=== PATIENT | female | born 1965 | race Caucasian/White ===

== ENCOUNTER → 2016-05-10 | Outpatient (CLI) | payer BC ==
[~2016-05-10] MED LIST: ANT PO; BUPR200T2 PO; CHOL1CAP51; CLON1TAB3 PO; DSP25 PO; METH-848 PO; PRED10TA PO; TPRSR/50 PO; TRAM-10 PO; TRIA75TA PO
[2016-05-10 10:05] LABS: HEMATOCRIT 46.5 % (37-47); MEAN CELL VOLUME 88.7 fL (80-100); MEAN CORPUSCULAR HEMOGLOBIN 29.4 pg (25-34); MEAN CORPUSCULAR HGB CONC 33.1 g/dl (32-36); MEAN PLATELET VOLUME 12.9 fL (7.4-10.4); PLATELET COUNT 197 K/uL (130-400); RED BLOOD COUNT 5.24 M/uL (4.2-5.4); WHITE BLOOD COUNT 7.63 K/uL (4.8-10.8)
[2016-05-10 10:34] LABS: BLOOD UREA NITROGEN 23 mg/dl (7-18); BUN/CREATININE RATIO 19.3 (10-20); CALCIUM 9.8 mg/dl (8.5-10.1); CARBON DIOXIDE 30 mmol/L (21-32); CHLORIDE 106 mmol/L (98-107); GLUCOSE 81 mg/dl (70-99); POTASSIUM 3.7 mmol/L (3.5-5.1); SODIUM 145 mmol/L (136-145)
[2016-05-10 10:38] LABS: ESTIMATED AVERAGE GLUCOSE 105 mg/dl; HA1C FLAG Normal (Normal)
== END | disposition home or self-care (01) ==
LOC: C.LAB1850 09:25
PROVIDERS: ATTEND Nurse Practitioner
DX: E05.90 Thyrotoxicosis, unspecified without thyrotoxic crisis or storm (principal); R73.01 Impaired fasting glucose; I10 Essential (primary) hypertension; Z98.84 Bariatric surgery status

== ENCOUNTER → 2016-06-25 | Outpatient (CLI) | payer BC ==
[2016-06-25 12:43] LABS: CHOLESTEROL/HDL RATIO 3.1; FERRITIN 56.6 ng/ml (8.0-388.0)
[2016-06-25 12:48] LABS: THYROID STIMULATING HORMONE 0.243 uIu/ml (0.300-4.500)
--- NOTE | 2016-07-01 12:15 | CODING QUERY MEDICAL NECESSITY ---
SUPPORTING DIAGNOSIS NEEDED A supporting diagnosis is required for the test/procedure performed on this patient in order for us to be reimbursed by the patient's insurance. Please provide a supporting diagnosis for the following test/procedure listed below next to the test name along with your signature. *If there is no additional diagnosis for this patient that would support the following test/procedure please document that below next to the test/procedure. Test(s)/Procedure(s) that require a supporting diagnosis: DOS 06/25 * Vitamin D DIAGNOSIS: * Folic Acid DIAGNOSIS: * Iron DIAGNOSIS: Provider Signature: Date: Thank you Teresa Mendoza Health Information Management Once completed, please kindly fax back to [phone] For questions please call [phone]
== END | disposition home or self-care (01) ==
LOC: C.LAB1850 10:37
PROVIDERS: ATTEND Internal Medicine Gastroenterology
DX: Z90.3 Acquired absence of stomach [part of] (principal); E05.90 Thyrotoxicosis, unspecified without thyrotoxic crisis or storm

== ENCOUNTER → 2016-08-12 | Outpatient (CLI) | payer BC ==
[2016-08-12 14:38] LABS: THYROID STIMULATING HORMONE 1.07 uIu/ml (0.300-4.500)
== END | disposition home or self-care (01) ==
LOC: C.LAB1850 11:37
PROVIDERS: ATTEND Physician Assistant
DX: E05.90 Thyrotoxicosis, unspecified without thyrotoxic crisis or storm (principal)

== ENCOUNTER → 2016-09-06 | Outpatient (CLI) | payer BC ==
--- NOTE | 2016-09-06 10:12 | DIAGNOSTIC IMAGING REPORT ---
CT OF THE CHEST WITHOUT IV CONTRAST CLINICAL HISTORY: Sarcoidosis. Pulmonary nodules. COMPARISON STUDY: Chest CT March 08, 2016. CT DOSE: 349.68 mGycm TECHNIQUE: Axial images of the chest were obtained without IV contrast. Images were reviewed in the axial, sagittal, and coronal planes. IV contrast was not administered for this examination. FINDINGS: Mild mediastinal and bilateral hilar lymphadenopathy has improved since exam of March 08, 2016. An index right paratracheal lymph node shown on image 92 of 307 measures 1.8 x 1.1 cm. It previously measured 2.4 x 1.3 cm. An index subcarinal lymph node shown on image 144 measures 1.1 cm in short axis diameter. It previously measured 1.4 cm. The size of the heart is at the upper limits of normal. There is no pericardial effusion. Central airways are patent. A right lobe thyroid nodule is again noted. Numerous pulmonary nodules, many of which are in a tree-in-bud distribution, are similar to exam of March 08, 2016. The appearance of the lungs is similar to prior exam. Bony thorax is unremarkable. Post surgical findings involving the stomach are noted. There are several small left renal calculi. There has been development of apparent bilateral breast skin thickening adjacent to the nipples. IMPRESSION: 1. Mild improvement in mediastinal and hilar lymphadenopathy since exam of March 08, 2016. 2. No significant change in scattered pulmonary nodules since chest CT of March 08, 2016. Many of these are in a tree-in-bud distribution. Findings are likely related to sarcoidosis. 3. Interval development of apparent bilateral periareolar skin thickening. This is suboptimally assessed by CT and is nonspecific although could be due to interval weight loss. This could be correlated with physical exam and mammography. Electronically signed by: Luis Enrique Mark M.D. 09/06/2016 10:11 AM Dictated Date/Time: 09/06/2016 9:55 AM
== END | disposition home or self-care (01) ==
LOC: C.CTS 09:29
PROVIDERS: ATTEND Internal Medicine Pulmonary Disease
DX: D86.9 Sarcoidosis, unspecified (principal); E66.9 Obesity, unspecified; R93.8 Abnormal findings on diagnostic imaging of other specified body structures

== ENCOUNTER → 2016-09-10 | Outpatient (CLI) | payer BC ==
[2016-09-10 16:16] LABS: THYROID STIMULATING HORMONE 1.88 uIu/ml (0.300-4.500)
== END | disposition home or self-care (01) ==
LOC: C.LAB1850 11:14
PROVIDERS: ATTEND Physician Assistant
DX: E05.90 Thyrotoxicosis, unspecified without thyrotoxic crisis or storm (principal)

== ENCOUNTER → 2016-09-24 | Outpatient (CLI) | payer BC | END | disposition home or self-care (01) | LOC: C.LAB1850 09:38 | PROVIDERS: ATTEND Internal Medicine Pulmonary Disease | DX: D86.9 Sarcoidosis, unspecified (principal) ==

== ENCOUNTER → 2016-10-15 | Outpatient (CLI) | payer BC ==
[2016-10-15 14:06] LABS: THYROID STIMULATING HORMONE 1.33 uIu/ml (0.300-4.500)
== END | disposition home or self-care (01) ==
LOC: C.LAB1850 12:40
PROVIDERS: ATTEND Internal Medicine Endocrinology, Diabetes & Metabolism
DX: E05.90 Thyrotoxicosis, unspecified without thyrotoxic crisis or storm (principal)

== ENCOUNTER → 2016-10-17 | Outpatient (CLI) | payer BC ==
[2016-10-17 12:35] LABS: BLOOD UREA NITROGEN 27 mg/dl (7-18); BUN/CREATININE RATIO 28.2 (10-20); CARBON DIOXIDE 29 mmol/L (21-32); CHLORIDE 109 mmol/L (98-107); CREATININE 0.95 mg/dl (0.60-1.20); GLUCOSE 86 mg/dl (70-99); POTASSIUM 3.6 mmol/L (3.5-5.1); SODIUM 145 mmol/L (136-145)
[2016-10-17 12:36] LABS: CALCIUM 9.2 mg/dl (8.5-10.1)
== END | disposition home or self-care (01) ==
LOC: C.LABPVFM 10:37
PROVIDERS: ATTEND Nurse Practitioner
DX: I10 Essential (primary) hypertension (principal)

== ENCOUNTER → 2016-12-10 | Outpatient (CLI) | payer BC ==
[2016-12-10 15:42] LABS: HEMATOCRIT 45.5 % (37-47); MEAN CORPUSCULAR HEMOGLOBIN 31.5 pg (25-34); MEAN CORPUSCULAR HGB CONC 33.8 g/dl (32-36); MEAN PLATELET VOLUME 12.1 fL (7.4-10.4); PLATELET COUNT 196 K/uL (130-400); RED BLOOD COUNT 4.89 M/uL (4.2-5.4); WHITE BLOOD COUNT 6.17 K/uL (4.8-10.8)
[2016-12-10 16:09] LABS: ALT/SGPT 50 U/L (12-78); AST/SGOT 25 U/L (15-37); BLOOD UREA NITROGEN 30 mg/dl (7-18); BUN/CREATININE RATIO 31.4 (10-20); CALCIUM 9.3 mg/dl (8.5-10.1); CARBON DIOXIDE 31 mmol/L (21-32); CHLORIDE 106 mmol/L (98-107); CREATININE 0.94 mg/dl (0.60-1.20); GLUCOSE 85 mg/dl (70-99); SODIUM 143 mmol/L (136-145)
[2016-12-10 16:11] LABS: ALB/GLOB RATIO 1.1 (0.9-2); ALKALINE PHOSPHATASE 119 U/L (45-117); FERRITIN 43.3 ng/ml (8.0-388.0); TOTAL IRON BINDING CAPACITY 332 mcg/dl (250-450)
[2016-12-11 08:01] LABS: ESTIMATED AVERAGE GLUCOSE 103 mg/dl; HA1C FLAG Normal (Normal)
--- NOTE | 2016-12-17 06:32 | CODING QUERY MEDICAL NECESSITY ---
CQSUPPORTING DIAGNOSIS NEEDED A supporting diagnosis is required for the test/procedure performed on this patient in order for us to be reimbursed by the patient's insurance. Please provide a supporting diagnosis for the following test/procedure listed below next to the test name along with your signature. *If there is no additional diagnosis for this patient that would support the following test/procedure please document that below next to the test/procedure. Test(s)/Procedure(s) that require a supporting diagnosis: DOS 12/10/16 BLOOD COUNT TEST CLYCATED HEMOGLOBIN TEST VITAMIN D TEST FOLIC ACID TEST TEST ORDERED BY PHUC DRAPER Provider Signature: Date: Thank you Consuelo Dangelo Health Information Management Once completed, please kindly fax back to [phone] For questions please call [phone]
== END | disposition home or self-care (01) ==
LOC: C.LAB1850 14:36
PROVIDERS: ATTEND Physician Assistant
DX: Z90.3 Acquired absence of stomach [part of] (principal)

== ENCOUNTER → 2017-01-03 | Outpatient (CLI) | payer BC ==
[2017-01-03 13:22] LABS: THYROID STIMULATING HORMONE 2.39 uIu/ml (0.300-4.500)
== END | disposition home or self-care (01) ==
LOC: C.LABPVFM 09:50
PROVIDERS: ATTEND Nurse Practitioner
DX: E05.90 Thyrotoxicosis, unspecified without thyrotoxic crisis or storm (principal)

== ENCOUNTER → 2017-04-07 | Outpatient (CLI) | payer BC ==
[2017-04-07 14:14] LABS: THYROID STIMULATING HORMONE 0.548 uIu/ml (0.300-4.500)
== END | disposition home or self-care (01) ==
LOC: C.LAB1850 11:26
PROVIDERS: ATTEND Internal Medicine Endocrinology, Diabetes & Metabolism
DX: E05.90 Thyrotoxicosis, unspecified without thyrotoxic crisis or storm (principal)

== ENCOUNTER → 2017-04-09 | Outpatient (CLI) | payer BC ==
--- NOTE | 2017-04-09 15:16 | MAMMOGRAPHY REPORT ---
BILATERAL DIGITAL SCREENING MAMMOGRAM TOMOSYNTHESIS WITH CAD: 04/09/2017 CLINICAL HISTORY: Routine screening. Patient has no complaints. TECHNIQUE: Breast tomosynthesis in addition to standard 2D mammography was performed. Current study was also evaluated with a Computer Aided Detection (CAD) system. COMPARISON: Comparison is made to exams dated: 06/27/2015 mammogram, 04/15/2014 mammogram, 12/02/2012 mammogram, 12/02/2011 mammogram, 11/29/2010 mammogram, and 11/21/2009 mammogram - [facility]. BREAST COMPOSITION: There are scattered areas of fibroglandular density in both breasts. FINDINGS: No suspicious mass, architectural distortion or cluster of microcalcifications is seen. IMPRESSION: ACR BI-RADS CATEGORY 1: NEGATIVE There is no mammographic evidence of malignancy. A 1 year screening mammogram is recommended. The pa tient will receive written notification of the results. Approximately 10% of breast cancers are not detected with mammography. A negative mammographic report should not delay biopsy if a clinically suggestive mass is present. Ernestina salinas/cali:04/09/2017 13:39:04 Scale Agent: Sofya Palacios RT(R)(M), [facility] letter sent: Normal 1/2 BI-RADS Code: ACR BI-RADS Category 1: Negative
== END | disposition home or self-care (01) ==
LOC: C.MAMM 13:12
PROVIDERS: ATTEND Nurse Practitioner
DX: Z12.31 Encounter for screening mammogram for malignant neoplasm of breast (principal)

== ENCOUNTER → 2017-07-07 | Outpatient (CLI) | payer OTHER | END | disposition home or self-care (01) | LOC: C.LAB1850 12:15 | PROVIDERS: ATTEND Physician Assistant | DX: E05.90 Thyrotoxicosis, unspecified without thyrotoxic crisis or storm (principal) ==

== ENCOUNTER → 2017-09-17 | Outpatient (CLI) | payer OTHER ==
[~2017-09-17] MED LIST changes: +OPTIRAY 320 IV PRN
--- NOTE | 2017-09-17 09:56 | DIAGNOSTIC IMAGING REPORT ---
CT (CHEST) THORAX WITH CLINICAL HISTORY: 52 years-old Female presenting with SARCOIDOSIS, PT PREMEDICATED. TECHNIQUE: Multidetector CT imaging of the chest was performed after the administration of intravenous contrast. IV contrast: 92 mL of Optiray 320. A dose lowering technique was used consistent with the principles of ALARA (as low as reasonably achievable). COMPARISON: 09/06/2016. CT DOSE (mGy.cm): The estimated cumulative dose is 277.10 mGy.cm. FINDINGS: Instant Print Operator topogram: Unremarkable. On soft tissue windows, enlargement of the right thyroid lobe due to the presence of a heterogeneously enhancing 27 mm nodule. This is poorly delineated on the prior exam. Persistent prominent skin thickening in the periareolar regions possibly due to large areolae. The appearance is unchanged from prior. Interval decreased size of mediastinal and hilar lymphadenopathy. Hilar lymphadenopathy is better appreciated on the current exam with intravenous contrast. No axillary or supraclavicular lymphadenopathy. Normal aorta. Normal heart size. No pericardial or pleural effusion. Postsurgical changes of gastric sleeve procedure partially visualized. Moderate stool burden. Mild wall thickening of the lower esophagus. On lung windows, redemonstration of tree-in-bud opacities with an upper lobe predominance. Multiple solid pulmonary nodules again noted bilaterally primarily in the upper lobes though noted in all 5 lobes. Some demonstrate internal calcification. These are not significantly changed in size or appearance. No significant bronchial wall thickening. Central airways patent. On bone windows, degenerative changes of the spine. IMPRESSION: 1. Slight interval decreased size of mediastinal lymphadenopathy. Persistent hilar lymphadenopathy. These findings relate to sarcoidosis. 2. No significant change in tree-in-bud opacities and multiple solid pulmonary nodules, which also relate to sarcoidosis. 3. 27 mm right thyroid lobe nodule, which is heterogeneously enhancing. If dedicated thyroid ultrasound has not previously been performed, this could be considered on an outpatient basis. Electronically signed by: Kevin Joseph M.D. 09/17/2017 9:54 AM Dictated Date/Time: 09/17/2017 9:44 AM
== END | disposition home or self-care (01) ==
LOC: C.CTS 09-02 10:14
PROVIDERS: ATTEND Internal Medicine Pulmonary Disease
DX: D86.9 Sarcoidosis, unspecified (principal)

== ENCOUNTER 2018-08-24 04:47 | Inpatient (IN) ==
--- NOTE | 2018-08-18 12:56 | Anesthesiology Consultation ---
Date of Service August 18, 2018 Assessment & Plan (1) Encounter for pre-operative examination: Chart Review Chart Review: Acceptable Risk for Surgery and Patient NOT seen in Pre Admission Testing History Surgery Operation Date: 08/24/18 07:00 Proposed Procedures p Laparoscopic Cholecystectomy - Holden Villa MD, FACS Height/Weight Height: 5 ft 4 in Weight: 70.307 kg Allergies Allergy/AdvReac Type Severity Reaction Status Date / Time Iodinated Contrast- Oral and Allergy Unknown hives Verified 08/12/18 12:51 IV Dye latex Allergy Redness of Verified 08/12/18 12:51 Skin citalopram AdvReac Unknown headache Verified 08/12/18 12:51 Penicillins AdvReac Unknown mouth sores Unverified 08/12/18 12:51 Medications Home Medications Medication Instructions Recorded Confirmed Last Taken [place]-3 1 cap PO QAM 08/12/18 08/12/18 Unknown Vitamin D3 1 cap PO QAM 08/12/18 08/12/18 Unknown bupropion HCl [Wellbutrin SR] 150 mg PO TID 08/12/18 08/12/18 Unknown buspirone 30 mg PO BID 08/12/18 08/12/18 Unknown calcium carbonate [Calcium 600] 1,200 mg PO QAM 08/12/18 08/12/18 Unknown clonazepam [Klonopin] 1 mg PO TID 08/12/18 08/12/18 Unknown cyanocobalamin (vitamin B-12) 1,000 mcg PO QAM 08/12/18 08/12/18 Unknown [Vitamin B-12] hydroxyzine HCl 50 mg PO HS 08/12/18 08/12/18 Unknown melatonin 5 mg PO HS 08/12/18 08/12/18 Unknown methimazole 1.5 tab PO QAM 08/12/18 08/12/18 Unknown multivitamin 1 tab PO QAM 08/12/18 08/12/18 Unknown omeprazole magnesium [Prilosec OTC] 20 mg PO QAM 08/12/18 08/12/18 Unknown Past Medical History Medical History Anxiety Chronic back pain Deep vein thrombosis LLE 4+ YEARS AGO S/P ANTICOAGULATION [place] Depression GERD (gastroesophageal reflux disease) Graves disease ON METHIMAZOLE History of endometriosis History of hypertension Kidney stone Sarcoidosis FOLLOWS WITH PULMONARY Past Surgical History Surgical History History of arthroscopy of knee LEFT History of colonoscopy History of elbow surgery LEFT History of esophagogastroduodenoscopy (EGD) History of hysterectomy with unilateral oophorectomy W/APPENDECTOMY History of sleeve gastrectomy History of tubal ligation Social History Smoking Status: Never smoker Do You Dip or Chew Tobacco: No Hx Alcohol Use: No Hx Substance Use: No substance use type: does not use Testing Electrocardiogram Date: 11/10/17 NSR at 69bpm. RBBB. Stress Test Date: 05/04/15 Type: DSE DSE negative for inducible ischemia. Grade II DD. EF 60-65%. No significant valvular disease. 111% MPHR. Laboratory Results 08/05/18 WBC 5.06 H/H 15.9/47.4 PLATELETS 183 SODIUM 144 POTASSIUM 4.6 CHLORIDE 101 CO2 32 BUN 31 CREATININE 0.9 GLUCOSE 94 07/06/18 TSH 1.440 (WNL) FREE T3 0.68
[2018-08-24] MEDS ORDERED: CIPROFLOXACIN 400 MG/200 ML BAG IV SCH (06:00)
[2018-08-24] MEDS: LR 15ML/HR IV SCH ×2 (06:07→08:32)
[2018-08-24] MEDS ORDERED: BUPIVACAINE 0.5 % 5 MG/1 ML MPF 30ML VIAL ONE (06:39)
--- NOTE | 2018-08-24 06:47 | History & Physical Bridge Note ---
Date of Service August 24, 2018 History & Physical Bridge Note I have examined the patient, reviewed the History & Physical and in the interval since the performance of the History & Physical I have noted the following changes of clinical significance: no changes noted
[2018-08-24] MEDS ORDERED: ATROPINE SULFATE 0.1 MG/ML 10ML SYR IV PRN (06:55)
[2018-08-24] MEDS ORDERED: ePHEDrine sulfate 50 MG/ML AMP IV PRN (06:55)
[2018-08-24] MEDS ORDERED: HYDROmorphone INJ 1 MG/ML SYRINGE IV PRN (06:55)
[2018-08-24] MEDS ORDERED: DEXAMETHASONE SOD INJ 4 MG/ML VIAL ONE (06:57)
[2018-08-24] MEDS ORDERED: GLYCOPYRROLATE 0.2 MG/ML VIAL ONE ×2 (06:57→07:37)
[2018-08-24] MEDS ORDERED: ONDANSETRON INJ 2 MG/ML 2 ML VIAL ONE (06:57)
[2018-08-24] MEDS ORDERED: NEOSTIGMINE METHYLSULFATE 5 MG/5 ML SYR ONE (06:57)
[2018-08-24] MEDS ORDERED: MIDAZOLAM HCL 1 MG/ML 2ML VIAL ONE (06:57)
[2018-08-24] MEDS ORDERED: LIDOCAINE HCL 2% 2 ML VIAL/AMP(20MG/ML) INFIL ONE (06:57)
[2018-08-24] MEDS ORDERED: PROPOFOL IV EMULSION 10 MG/ML 20 ML VIAL IV ONE (06:57)
[2018-08-24] MEDS ORDERED: fentaNYL citrate 100 MCG/2 ML VIAL ONE (06:57)
[2018-08-24] MEDS ORDERED: LARYING-O-JET KIT (LTA) ONE (07:28)
[2018-08-24] MEDS ORDERED: ROCURONIUM BROMIDE 10 MG/ML 5 ML VIAL ONE (07:28)
[2018-08-24] MEDS ORDERED: ePHEDrine sulfate 50 MG/ML SYR ONE (07:28)
--- NOTE | 2018-08-24 07:43 | Operative Report ---
Post Operative Report Pre & Post Diagnosis Operation Date: 08/24/18 07:00 Pre-Op Diagnosis: Gallstones, Biliary Colic Post-Op Diagnosis: Gallstones, Biliary Colic same Procedure Operation Date: 08/24/18 07:00 Actual Procedures p Laparoscopic Cholecystectomy(Not Applicable) - Holden Villa MD, FACS Surgeon Holden Villa MD, FACS Truck Assembler Jena Shields Estimated Blood Loss 10 Findings Consistent with Post-Op Diagnosis Specimens gallbladder Description of Procedure see dictation I attest to the content of the Intraoperative Record and any orders documented therein. Any exceptions are noted below.
[2018-08-24] MEDS ORDERED: ACETAMINOPHEN 1,000 MG/100 ML VIAL IV ONE (07:44)
--- NOTE | 2018-08-24 07:58 | Operative Report ---
DATE OF OPERATION: 08/24/2018 NAME OF OPERATION: Laparoscopic cholecystectomy. PREOPERATIVE DIAGNOSIS: Biliary colic. POSTOPERATIVE DIAGNOSIS: Biliary colic. STAFF SURGEON: Holden Villa PA-C. SR. MEDIA MANAGER: Anand Shields PA-C ANESTHESIA: General. DESCRIPTION OF PROCEDURE: The patient was brought in the operating room and placed on the operating table in supine position. Pneumatic stockings, orogastric tube were placed. Her abdomen was prepped and draped in usual fashion after appropriate anesthetic. My assistant professor of german helped with prepping, draping, removal of the gallbladder and closure of the wounds. 0.5% plain Marcaine was used to anesthetize all incisions. Incision was made above the umbilicus, carrying dissection down to the fascia, placing a Veress needle producing pneumoperitoneum. An 11 mm port placed at this level, and under visualization, three 5 mm ports were placed, 1 cephalad and 2 laterally. Gallbladder was grasped and retracted. It was aspirated of bile. The patient did have at least 1 large gallstone. Dissection was carried out at the nixon hepatis, identifying the cystic duct and cystic artery. These were clipped and transected and the gallbladder dissected away from the liver bed in the usual fashion. After appropriate hemostasis and irrigation, the gallbladder was placed into an Endobag and then removed through the umbilical site. The umbilical fascia closed using interrupted 0 Vicryl suture. Skin reapproximated using subcuticular 4-0 Monocryl and Dermabond. The patient was transferred to the recovery room in stable condition. I attest to the content of the Intraoperative Record and any orders documented therein. Any exception s are noted below.
[2018-08-24] MEDS ORDERED: ONDANSETRON INJ 2 MG/ML 2 ML VIAL IV STA (08:31)
--- NOTE | 2018-08-24 08:45 | Anesthesiology Progress Note ---
Date of Service August 24, 2018 Anesthesia Post Procedure Vital Signs Vital Signs: Temp Pulse Pulse Resp BP BP Pulse Ox 08/24/18 08:35 56 L 17 136/82 99 08/24/18 08:25 60 14 139/84 99 08/24/18 08:15 66 12 140/84 100 08/24/18 08:05 75 14 147/86 H 100 08/24/18 07:57 36.0 C L 96 H 16 139/94 99 08/24/18 05:42 36.8 C 69 18 127/84 97 Pain Intensity Abdomen: Pain Intensity: 2 Notes Mental Status: alert / awake / arousable Patient Amnestic to Procedure: Yes Nausea / Vomiting: adequately controlled Pain: adequately controlled Airway Patency, RR, SpO2: stable & adequate BP & HR: stable & adequate Hydration State: stable & adequate Anesthetic Complications: no major complications apparent and Pt Satisfied with anesthetic care
[2018-08-24] MEDS ORDERED: IBUPROFEN 600 MG TAB PO PRN (09:41)
[2018-08-24] MEDS ORDERED: MoRPHine SULFATE 4 MG/ML 1 ML CARP\\VIAL IV PRN (09:41)
[2018-08-24] MEDS ORDERED: HYDROCODONE/ACETAMOPHEN 5/325MG TAB PO PRN (09:41)
[2018-08-24] MEDS ORDERED: LACTATED RINGER'S 1,000 ML IV SCH (09:41)
[2018-08-24] MEDS ORDERED: PROMETHAZINE HCL 12.5 MG in SODIUM CHLORIDE 0.9% 50 ML IV PRN (09:41)
[2018-08-24] MEDS ORDERED: PROMETHAZINE HCL 25 MG in SODIUM CHLORIDE 0.9% 50 ML IV PRN (09:41)
[2018-08-24] MEDS: clonazePAM 1 MG TAB PO SCH ×3 (10:20→20:53)
[2018-08-24] MEDS: HYDROCODONE/ACETAMOPHEN 5/325MG TAB PO PRN ×2 (10:20→16:04)
[2018-08-24] MEDS: PANTOprazole 40 MG TAB PO SCH (11:01)
[2018-08-24] MEDS: DOCUSATE SODIUM/SENNA 50/8.6MG TAB PO SCH ×2 (11:01→20:53)
--- NOTE | 2018-08-24 11:01 | Consultation ---
Date of Consultation August 24, 2018 Assessment & Plan (1) S/P laparoscopic cholecystectomy: Patient s/p laparoscopic cholecystectomy performed today by Dr. Villa. Procedure well tolerated, no complications identified. Patient is doing well, does have considerable pain, 8/10. Just received Hydrocodone. -Control of pain and nausea per primary team. Patient has PRN Morphine IV if pain is not adequately controlled by Hydromorphone -Bowel regimen per primary team -Encourage activity Present on Admission?: Yes (2) Sarcoidosis: Patient with history of pulmonary Sarcoidosis. Presently well controlled. She follows with Pulmonology -Outpatient followup as recommended by Pulmonology -Continue to monitor Present on Admission?: Yes (3) Graves disease: Stable, chronic -Continue Methimazole Present on Admission?: Yes (4) Anxiety: Stable. Well controlled on home medication regimen -Continue Bupropion 150mg po TID -Continue Buspirone 30mg po BID -Continue Clonazepam 1mg po TID -Continue Hydroxyzine 50mg po qHS for sleep Present on Admission?: Yes (5) History of sleeve gastrectomy: Chronic. Stable -Protonix 40mg po daily -Prilosec on discharge -Resume home Vitamins and supplements on discharge Present on Admission?: Yes (6) History of DVT (deep vein thrombosis): Patient completed adequate course of anticoagulation. Presently with SCDs in place -Encourage ambulation -Continue SCDs F/E/N - will check CBC and BMP x 1 tomorrow AM Thank you for this consult. Please do not hesitate to call with additional questions or concerns. Present on Admission?: Yes History of Present Illness Reason for Consultation: post-operative medical management Attending Physician: Holden Villa MD, FACS History of Present Illness Mrs. Suarez is a pleasant 53yo C female with history of pulmonary sarcoidosis, Grave's disease, prior DVT, Anxiety/Depression. She had a laparoscopic cholecystectomy performed by Dr. Villa today for biliary colic and gallstones. Surgery was well tolerated, no complications identified. Patient presently complaining of pain, 8/10 as well as some gas. She has ambulated to the bathroom and urinated without difficulty. No BM yet. Has not yet eaten. No additional complaints at this time. Allergies Allergy/AdvReac Type Severity Reaction Status Date / Time Iodinated Contrast- Oral and Allergy Unknown hives Verified 08/24/18 05:36 IV Dye latex Allergy Redness of Verified 08/24/18 07:32 Skin citalopram AdvReac Unknown headache Verified 08/24/18 07:32 Penicillins AdvReac Unknown mouth sores Verified 08/24/18 07:32 Home Medications Home Medications Medication Instructions Recorded Confirmed Type [place]-3 1 cap PO QAM 08/12/18 08/12/18 History Vitamin D3 1 cap PO QAM 08/12/18 08/24/18 History bupropion HCl [Wellbutrin SR] 150 mg PO TID 08/12/18 08/24/18 History buspirone 30 mg PO BID 08/12/18 08/24/18 History calcium carbonate [Calcium 600] 1,200 mg PO QAM 08/12/18 08/24/18 History clonazepam [Klonopin] 1 mg PO TID 08/12/18 08/24/18 History cyanocobalamin (vitamin B-12) 1,000 mcg PO QAM 08/12/18 08/24/18 History [Vitamin B-12] hydroxyzine HCl 50 mg PO HS 08/12/18 08/24/18 History melatonin 5 mg PO HS 08/12/18 08/24/18 History methimazole 1.5 tab PO QAM 08/12/18 08/24/18 History multivitamin 1 tab PO QAM 08/12/18 08/24/18 History omeprazole magnesium [Prilosec OTC] 20 mg PO QAM 08/12/18 08/24/18 History Patient History Family History Other Diabetes Hypertension Social History Preferred Language: Kinyarwanda Communication Ability: Effective Insecticide Supervisor Required: No Beliefs That Will Affect Care: Nondenominational Nondenominational Beliefs: ISLAM Current Living Situation: Spouse Other Information That Helps Us Care for You: No Feels Safe at Home: Yes Safety Concerns: Feels Safe At This Time Smoking Status: Never smoker Do You Dip or Chew Tobacco: No Second Hand Exposure: Yes ( A CHILD) Hx Alcohol Use: No Hx Substance Use: No Review of Systems Review of Systems: All systems reviewed & are unremarkable except as noted in HPI & below Physical Exam Physical Exam: General: patient resting comfortably, NAD, non-toxic in appearance, AA&O x 4 Skin: warm, dry, no rashes or lesions. HEENT: NC/AT, PERRL, EOMI, anicteric sclera, conjunctiva without injection, external ear normal to inspection and nontender, nares patent, moist mucus membranes, dentition intact, no oropharyngeal lesions, neck supple, trachea midline, no LAD, no thyromegaly, no JVD Heart: +S1/S2, regular, bradycardic at 59bpm, no m/r/g Lungs: equal air entry bilaterally, no rales/rhonchi/wheezes Abd: surgical sites well approximated, no bleeding/drainage, +BS, soft, ND, no masses/organomegaly/ascites Ext: warm, 2+ pulses in UE/LE bilaterally, no clubbing/cyanosis or edema, SCDs in place Neuro: nonfocal, patient AA&O x 4, speech intact, no facial droop, moving all extremities on command with equal strength 5/5 Results & Data Vital Signs (Past 12 Hours) Vital Signs Temp Pulse Pulse Resp BP BP Pulse Ox 08/24/18 10:01 59 L 16 130/81 96 08/24/18 09:47 76 15 128/84 96 08/24/18 09:05 36.8 C 68 16 131/86 96 08/24/18 08:45 36.6 C 54 L 14 126/83 99 08/24/18 08:35 56 L 17 136/82 99 08/24/18 08:25 60 14 139/84 99 08/24/18 08:15 66 12 140/84 100 08/24/18 08:05 75 14 147/86 H 100 08/24/18 07:57 36.0 C L 96 H 16 139/94 99 08/24/18 05:42 36.8 C 69 18 127/84 97
[2018-08-24] MEDS: BuPROPion SR 150 MG TABCR PO SCH ×3 (11:02→20:53)
[2018-08-24] MEDS: BusPIRone 15 MG TAB PO SCH ×2 (11:02→20:53)
[2018-08-24] MEDS: MoRPHine SULFATE 2 MG/ML CARP IV PRN ×2 (11:05→22:34)
[2018-08-24] MEDS: ONDANSETRON INJ 2 MG/ML 2 ML VIAL IV PRN (18:56)
[2018-08-25] MEDS: ONDANSETRON INJ 2 MG/ML 2 ML VIAL IV PRN ×4 (00:14→23:38)
[2018-08-25] MEDS: HYDROCODONE/ACETAMOPHEN 5/325MG TAB PO PRN ×2 (05:56→20:04)
--- NOTE | 2018-08-25 05:59 | Progress Note ---
Date of Service August 25, 2018 Assessment & Plan (1) S/P laparoscopic cholecystectomy: will monitor today- admit pt- nausea/ dizziness likely from meds/ anesthesia- check labs cont IV meds and antiemetics as needed Subjective pt sitting on edge of bed- awake, alert- no distress min pain had some nausea, dizziness last pm- no emesis Physical Exam Physical Exam: abd soft, incisions intact vitals stable Results & Data Vital Signs (Past 12 Hours) Vital Signs Temp Pulse Pulse Resp BP Pulse Ox 08/25/18 03:22 37.1 C 68 14 106/64 92 08/24/18 22:55 36.7 C 64 14 111/70 94 08/24/18 18:46 36.4 C L 70 18 122/79 96
[2018-08-25 07:47] LABS: Basophils # (auto) 0.02 K/uL (0-0.2); Basophils % (auto) 0.3 %; Eosinophils # (auto) 0.11 K/uL (0-0.5); Eosinophils % (auto) 1.6 %; Hematocrit (blood only) 40.9 % (37-47); Hemoglobin 13.9 g/dL (12.0-16.0); Immature Granulocytes # (auto) 0.01 K/uL (0.00-0.02); Immature Granulocytes % (auto) 0.1 %; Lymphocytes # (auto) 1.44 K/uL (1.2-3.4); Lymphocytes % (auto) 21.2 %; Mean Corpuscular Volume 93.4 fL (80-100); Mean Platelet Volume 11.4 fL (7.4-10.4); Monocytes # (auto) 0.81 K/uL (0.11-0.59); Monocytes % (auto) 11.9 %; Neutrophils # (auto) 4.41 K/uL (1.4-6.5); Neutrophils % (auto) 64.9 %; Platelet Count 146 K/uL (130-400); RDW Coefficient of Variation 13.2 % (11.5-14.5); RDW Standard Deviation 45.2 fL (36.4-46.3); Red Blood Count 4.38 M/uL (4.2-5.4)
[2018-08-25 08:20] LABS: BUN Creatinine Ratio 18.2 (10-20); Calcium 8.9 mg/dl (8.5-10.1); Creatinine Clr Calc Pharmacy 75.8 ml/min; Est GFR (African American) 92.7; Est GFR (Non-African American) 79.9; Potassium 4.1 mmol/L (3.5-5.1)
--- NOTE | 2018-08-25 08:24 | Anesthesiology Progress Note ---
Date of Service August 25, 2018 Anesthesia Post Procedure Vital Signs Vital Signs: Temp Pulse Pulse Pulse Resp BP Pulse Ox 08/25/18 07:44 37 C 68 14 106/67 92 08/25/18 03:22 37.1 C 68 14 106/64 92 08/24/18 22:55 36.7 C 64 14 111/70 94 08/24/18 18:46 36.4 C L 70 18 122/79 96 08/24/18 15:26 36.6 C 61 18 132/81 96 08/24/18 12:14 68 14 126/78 92 08/24/18 11:02 62 15 136/76 97 08/24/18 10:01 59 L 16 130/81 96 08/24/18 09:47 76 15 128/84 96 08/24/18 09:05 36.8 C 68 16 131/86 96 08/24/18 08:45 36.6 C 54 L 14 126/83 99 08/24/18 08:35 56 L 17 136/82 99 08/24/18 08:25 60 14 139/84 99 Pain Intensity Abdomen: Pain Intensity: 2 Notes Mental Status: alert / awake / arousable Patient Amnestic to Procedure: Yes Nausea / Vomiting: improving with treatment (Pt reports delayed nausea following afternoon nap hours after surgery) Pain: adequately controlled Airway Patency, RR, SpO2: stable & adequate BP & HR: stable & adequate Hydration State: stable & adequate Anesthetic Complications: Pt Satisfied with anesthetic care
[2018-08-25] MEDS: DOCUSATE SODIUM/SENNA 50/8.6MG TAB PO SCH ×2 (09:10→20:58)
[2018-08-25] MEDS: BuPROPion SR 150 MG TABCR PO SCH ×3 (09:10→20:58)
[2018-08-25] MEDS: BusPIRone 15 MG TAB PO SCH ×2 (09:10→20:58)
[2018-08-25] MEDS: methIMAzole 5 MG TABLET PO SCH (09:10)
[2018-08-25] MEDS: PANTOprazole 40 MG TAB PO SCH (09:10)
[2018-08-25] MEDS: clonazePAM 1 MG TAB PO SCH ×3 (09:12→20:58)
[2018-08-25] MEDS: ACETAMINOPHEN 325 MG TAB PO PRN (13:42)
--- NOTE | 2018-08-25 14:44 | Anesthesiology Progress Note ---
Date of Service August 25, 2018 Subjective I was asked to see Mrs. Shepard for the symptoms of dizziness and headaches. She is post-op day one, S/P laparoscopic cholecystectomy. There were no complications of anesthesia.She said her symptoms are better than yesterday. Tylenol is helping the headaches, and she has had a few doses of zofran for nausea. I explained to her that during an anesthetic she receives a lot of narcotics and anesthetic gasses as well other drugs and that it should get better every day until the symptoms are all resolved. I encouraged her to drink a lot of fluids. Physical Exam Vital Signs: Last Vital Signs Temp 37 C 08/25/18 07:44 Pulse 68 08/25/18 07:44 Resp 14 08/25/18 07:44 BP 119/75 08/25/18 08:55 Pulse Ox 92 08/25/18 07:44 Results & Data Medications Administered Acetaminophen (Tylenol) 650 mg PO Q4H PRN PRN Reason: Pain Stop: 09/23/18 09:40 Last Admin: 08/25/18 13:42 Dose: 650 mg Documented by: [id number] Hydrocodone Bitart/Acetaminophen (Wayne 5/325) 2 tab PO 3XDQ4 PRN PRN Reason: Pain Stop: 09/07/18 09:40 Last Admin: 08/25/18 05:56 Dose: 2 tab Documented by: [id number] Admin: 08/24/18 16:04 Dose: 2 tab Documented by: [id number] Admin: 08/24/18 10:20 Dose: 2 tab Documented by: [id number] Bupropion HCl (Wellbutrin-Sr) 150 mg PO TID YOLANDA Stop: 09/23/18 09:40 Last Admin: 08/25/18 13:42 Dose: 150 mg Documented by: [id number] Admin: 08/25/18 09:10 Dose: 150 mg Documented by: [id number] Admin: 08/24/18 20:53 Dose: 150 mg Documented by: [id number] Admin: 08/24/18 13:50 Dose: 150 mg Documented by: [id number] Admin: 08/24/18 11:02 Dose: 150 mg Documented by: [id number] Buspirone HCl (Buspar) 30 mg PO BID [facility] Stop: 09/23/18 09:40 Last Admin: 08/25/18 09:10 Dose: 30 mg Documented by: [id number] Admin: 08/24/18 20:53 Dose: 30 mg Documented by: [id number] Admin: 08/24/18 11:02 Dose: 30 mg Documented by: [id number] Clonazepam (Klonopin) 1 mg PO TID [facility] Stop: 09/23/18 09:40 Last Admin: 08/25/18 13:42 Dose: 1 mg Documented by: [id number] Admin: 08/25/18 09:12 Dose: 1 mg Documented by: [id number] Admin: 08/24/18 20:53 Dose: 1 mg Documented by: [id number] Admin: 08/24/18 13:50 Dose: 1 mg Documented by: [id number] Admin: 08/24/18 10:20 Dose: 1 mg Documented by: [id number] Hydroxyzine HCl (Vistaril) 50 mg PO HS [facility] Stop: 09/23/18 20:59 Last Admin: 08/24/18 20:53 Dose: 50 mg Documented by: [id number] Methimazole (Tapazole) 7.5 mg PO QAM [facility] Stop: 09/24/18 08:59 Last Admin: 08/25/18 09:10 Dose: 7.5 mg Documented by: [id number] Morphine Sulfate (Morphine Sulfate) 2 mg IV 4XDQ3H PRN PRN Reason: Pain Stop: 09/07/18 09:40 Last Admin: 08/24/18 22:34 Dose: 2 mg Documented by: [id number] Admin: 08/24/18 11:05 Dose: 2 mg Documented by: [id number] Ondansetron HCl (Zofran) 4 mg IV 4XDQ4H PRN PRN Reason: Nausea Stop: 09/23/18 09:40 Last Admin: 08/25/18 13:42 Dose: 4 mg Documented by: [id number] Admin: 08/25/18 00:14 Dose: 4 mg Documented by: [id number] Admin: 08/24/18 18:56 Dose: 4 mg Documented by: [id number] Pantoprazole Sodium (Protonix) 40 mg PO DAILY [facility] Stop: 09/23/18 09:59 Last Admin: 08/25/18 09:10 Dose: 40 mg Documented by: [id number] Admin: 08/24/18 11:01 Dose: 40 mg Documented by: [id number] Senna/Docusate Sodium (Senokot S) 1 tab PO BID YOLANDA Stop: 09/23/18 09:40 Last Admin: 08/25/18 09:10 Dose: 1 tab Documented by: [id number] Admin: 08/24/18 20:53 Dose: 1 tab Documented by: [id number] Admin: 08/24/18 11:01 Dose: 1 tab Documented by: [id number]
[2018-08-25] MEDS ORDERED: MECLIZINE HCL 25 MG TAB PO STA ×2 (16:22→23:59)
[2018-08-25] MEDS ORDERED: SODIUM CHLORIDE 0.9% 500 ML IV SCH (16:30)
--- NOTE | 2018-08-25 20:12 | Hospitalist Progress Note ---
Date of Service August 25, 2018 Assessment & Plan (1) Dizziness: orthostatic BPs checked and were normal. some of the symptoms sound like orthostasis but again orthostatics are negative. not true vertigo but movements clearly bring on some form of disequilibrium. medication side effects? dehydration? other? try antivert 12.5mg po x1. if not effective consider scopalamine patch. NS bolus 500cc x 1 since she appears volume depleted. treat headache. Present on Admission?: No (2) Headache: tension type headache cont tylenol prn use narcotics sparingly for this consider heat packs unfortunately cannot use NSAIDs due to h/o gastric sleeve last resort try fioricet (3) S/P laparoscopic cholecystectomy: POD #[address] Villa management per his team (4) Sarcoidosis: inactive/quiescent. follows w/ pulmonary as outpatient. (5) Graves disease: Stable, chronic Continue Methimazole (6) Anxiety: cont complex home regimen including buspar, klonipin, wellbutrin. also takes atarax at HS. (7) History of sleeve gastrectomy: noted PPI for GI proph no NSAIDs (8) History of DVT (deep vein thrombosis): noted DVT proph selection - defer to Dr. Villa our team will continue to follow Subjective pt c/o dizziness not a true vertigo but sudden movements and sitting/standing make it worse not a true lightheaded feeling either but states she feels her "balance is off" today keeps seeing "squiglies" when she looks out into the room but no visual field cuts no motor weakness also c/o right sided scalp headache; this is tender if she touches it nausea has improved today +flatus tolerating current diet mild abd pain Review of Systems Constitutional: no fever Respiratory: no cough and no dyspnea Cardiovascular: no chest pain Neurologic: no localized weakness, no paralysis and no numbness Physical Exam Constitutional: well developed and well nourished; no acute distress and not ill appearing ENMT: Mouth: + oral mucosal abnormality (mucous membranes DRY) tender to palpation right side of head Respiratory: normal respiratory effort, lungs clear to auscultation Cardiovascular: Rate/Rhythm: regular rate and regular rhythm Heart Sounds: normal S1 and normal S2; no murmur Vessels: posterior tibial pulses present and dorsalis pedis pulses present; no JVD Extremities: no edema Gastrointestinal (Abdomen): Inspection/Auscultation: + abdomen distended (mild) and normal bowel sounds Percussion/Palpation: + abdomen tender (incisions only ); no hepatosplenomegaly Neurologic: moves all extremities; no focal motor deficits finger/nose/finger maneuver w/o ataxia gait not tested Results & Data Vital Signs (Past 12 Hours) Vital Signs Temp Pulse Resp BP Pulse Ox 08/25/18 15:54 124/72 08/25/18 15:53 128/78 08/25/18 15:52 137/89 08/25/18 15:21 36.7 C 77 18 111/71 96 08/25/18 08:55 119/75 Laboratory Results Laboratory Results - last 24 hr 08/25/18 08/25/18 07:22 07:22 WBC 6.80 RBC 4.38 Hgb 13.9 Hct 40.9 MCV 93.4 MCH 31.7 MCHC 34.0 RDW Std Deviation 45.2 RDW Coeff of Winsome 13.2 Plt Count 146 MPV 11.4 H Immature Gran % (Auto) 0.1 Neut % (Auto) 64.9 Lymph % (Auto) 21.2 [place] % (Auto) 11.9 Eos % (Auto) 1.6 Baso % (Auto) 0.3 Immature Gran # (Auto) 0.01 Neut # (Auto) 4.41 Lymph # (Auto) 1.44 [place] # (Auto) 0.81 H Eos # (Auto) 0.11 Baso # (Auto) 0.02 Sodium 142 Potassium 4.1 Chloride 107 Carbon Dioxide 29 Anion Gap 6.0 BUN 15 Creatinine 0.83 Est Cr Clr Drug Dosing 75.8 Est GFR ( Amer) 92.7 Est GFR (Non-Af Amer) 79.9 BUN/Creatinine Ratio 18.2 Glucose 88 Calcium 8.9 (1) Headache Headache type: tension-type Headache chronicity pattern: acute headache Intractability: not intractable Qualified Code(s): G44.209 - Tension-type headache, unspecified, not intractable
--- NOTE | 2018-08-26 07:24 | Progress Note ---
Date of Service August 26, 2018 Assessment & Plan (1) S/P laparoscopic cholecystectomy: dizziness persists - did rec Meclazine- will discuss further w/u with med team stop all narcotics, supportive care Subjective vitals stable- no orthostasis nausea last pm- given zofran, also rec [place] still w/ occas headache- nonspecific site and some dizziness Physical Exam Physical Exam: awake, alert, normal affect abd soft, incisions ok Results & Data Vital Signs (Past 12 Hours) Vital Signs Temp Pulse Resp Pulse Ox 08/25/18 23:42 36.7 C 73 18 92
[2018-08-26] MEDS: ACETAMINOPHEN 325 MG TAB PO PRN ×2 (08:43→14:36)
[2018-08-26] MEDS: BusPIRone 15 MG TAB PO SCH ×2 (10:05→20:43)
[2018-08-26] MEDS: DOCUSATE SODIUM/SENNA 50/8.6MG TAB PO SCH ×2 (10:05→20:43)
[2018-08-26] MEDS: PANTOprazole 40 MG TAB PO SCH (10:05)
[2018-08-26] MEDS: methIMAzole 5 MG TABLET PO SCH (10:06)
[2018-08-26] MEDS: BuPROPion SR 150 MG TABCR PO SCH ×3 (10:07→20:43)
[2018-08-26] MEDS: clonazePAM 1 MG TAB PO SCH ×3 (10:09→20:43)
--- NOTE | 2018-08-26 17:41 | Hospitalist Progress Note ---
Date of Service August 26, 2018 Assessment & Plan (1) Dizziness: orthostatic BPs checked and were normal. some of the symptoms sound like orthostasis but again orthostatics are negative. not true vertigo but movements clearly bring on some form of disequilibrium. Now improving after stopping hydrocodone. Most likely was a medication side effect She also received a small bolus of normal saline yesterday and appears more hydrated. Overall much improved (2) Headache: Much improved today and was likely related to caffeine withdrawal as she normally drinks caffeinated Diet Coke on a daily basis. Resolved today after drinking Diet Coke and taking 2 Tylenol Okay to have caffeinated beverages in the hospital (3) S/P laparoscopic cholecystectomy: POD #[address] Villa management per his team (4) Sarcoidosis: inactive/quiescent. follows w/ pulmonary as outpatient. (5) Graves disease: Stable, chronic Continue Methimazole (6) Anxiety: cont complex home regimen including buspar, klonipin, wellbutrin. also takes atarax at HS. (7) History of sleeve gastrectomy: noted PPI for GI proph -Would not recommend any NSAIDs due to increased risk of peptic ulcer disease (8) History of DVT (deep vein thrombosis): noted-patient reports she had a small clot in the right lower extremity that was at the "borderline" of being in a deep vessel but was treated with 3 months of anticoagulation. Her second event was a superficial thrombophlebitis in the right antecubital fossa after a lab draw. She is not on chronic anticoagulation Would recommend Lovenox-as it has been 2 days since her laparoscopic cholecystectomy and she has no evidence/signs/symptoms of bleeding, okay to start Lovenox 40 mg SQ every 24 hours for DVT prophylaxis Disposition-hospitalist service will follow along, but most likely can be discharged home tomorrow Subjective I saw the patient later in the afternoon she was feeling much better. Reported dizziness was much improved and was more like feeling a little blurring her vision with standing up and after walking in the halls. She also reports her headache is much improved after drinking a caffeinated Diet Coke as well as taking 2 Tylenol. She denies chest pain or shortness of breath, denies nausea. She is tolerating p.o. No bowel movement yet and is requesting a laxative. She does not want to take any more opioids and really has no abdominal pain. Review of Systems Review of Systems: All systems reviewed & are unremarkable except as noted in HPI & below Physical Exam Constitutional: WD/WN, vitals as above Eyes: PERRL, conjunctivae normal, anicteric sclerae (Except right pupil slightly larger than left pupil status post eye surgery) EOM intact bilaterally; no nystagmus ENMT: external ear and nose normal, oropharynx normal Neck: trachea midline, no thyromegaly Respiratory: normal respiratory effort, lungs clear to auscultation Cardiovascular: RRR, no murmur, no edema Gastrointestinal (Abdomen): normal bowel sounds, soft, nontender, no hepatos plenomegaly (With multiple laparoscopic incisions with Dermabond in place) Musculoskeletal: Extremities: extremities normal to inspection; no cyanosis and no clubbing Skin: no rashes, warm and dry Neurologic: CN's II-XI intact bilaterally, moves all extremities and awake; no focal motor deficits Psychiatric: A+Ox3, euthymic affect Results & Data Vital Signs (Past 12 Hours) Vital Signs Temp Pulse Pulse Resp BP Pulse Ox 08/26/18 15:00 37.3 C 73 18 128/82 95 08/26/18 12:50 36.9 C 69 16 112/77 94 08/26/18 07:31 118/76 08/26/18 07:30 36.7 C 70 17 118/64 95 Laboratory Results 08/26/18 Range/Units 18:12 PT 10.4 (9.0-12.0) Seconds INR 1.0 (0.9-1.1) APTT 24.0 (21.0-31.0) Seconds PTT Ratio 0.9 (1) Headache Headache chronicity pattern: acute headache Headache type: tension-type Intractability: not intractable Qualified Code(s): G44.209 - Tension-type headache, unspecified, not intractable
[2018-08-26] MEDS: POLYETHYLENE (MIRALAX) 17 GM PACK PO SCH (18:13)
[2018-08-26 18:53] LABS: Partial Thromboplastin Ratio 0.9; Prothrombin Time 10.4 Seconds (9.0-12.0)
[2018-08-26] MEDS ORDERED: ENOXAPARIN INJ 40 MG/0.4 ML SYR SQ SCH (21:00)
[2018-08-27] MEDS: clonazePAM 1 MG TAB PO SCH (09:10)
[2018-08-27] MEDS: DOCUSATE SODIUM/SENNA 50/8.6MG TAB PO SCH (09:11)
[2018-08-27] MEDS: PANTOprazole 40 MG TAB PO SCH (09:11)
[2018-08-27] MEDS: BuPROPion SR 150 MG TABCR PO SCH (09:11)
[2018-08-27] MEDS: methIMAzole 5 MG TABLET PO SCH (09:11)
[2018-08-27] MEDS: BusPIRone 15 MG TAB PO SCH (09:12)
[2018-08-27] MEDS: POLYETHYLENE (MIRALAX) 17 GM PACK PO SCH (09:12)
--- NOTE | 2018-08-27 09:46 | Discharge Summary ---
PRINCIPAL DIAGNOSIS: Biliary colic. OTHER DIAGNOSES: Dizziness and nausea. PROCEDURES: The patient underwent laparoscopic cholecystectomy. HISTORY OF PRESENT ILLNESS: The patient is a 53-year-old female with gallstones and history of abdominal pain, felt to be biliary colic. HOSPITAL COURSE: She was brought into the hospital on 08/24/2018. She underwent elective laparoscopic cholecystectomy, which she tolerated very well. The procedure went very well. Postoperatively, she did have some nausea and then some dizziness which was examined and evaluated by the medical team. It did gradually subside and was felt to be secondary to her narcotic medication and anesthesia. She did gradually progress and was felt stable for discharge home on 08/27/2018 to be followed in the surgical clinic within 1-2 weeks.
--- OUTSIDE RECORDS SUMMARY | 2018-08-31 14:22 | External Medical Summary | Continuity of Care Document ---
:1965 Author Name Ramu Han, Provider Address Unavailable Unavailable , Care Team Providers Name Role Phone Ozzy ROSA, Abena Unavailable [email or web address] Cory Han, Keegan Unavailable [email or web address] [email or web address] Unavailable [email or web address] DEYSI Han, JANNET Jacobs Unavailable Unavailable Unavailable Unavailable Unavailable Problems Bundle-branch block (426.50) (I45.4) Tachycardia (785.0) (R00.0) Encounter for routine gynecological examination (V72.31) (Z0 1.419) Low back pain, unspecified back pain lat erality, unspecified chronicity, with sciatica presence unspecified (724.2) (M54.5) Graves disease (242.00) (E05.00) Abdominal pain of multiple sites (789.09) (R10.9) Upper respiratory infection (465.9) (J06.9) Otitis media (382.9) (H66.90) A-V Block (426.10) Benign colonic polyp (211.3) (K63.5) Anxiety (300.00) (F41.9) Mid sternal chest pain (786.51) (R07.89) Thyroid adenoma, toxic (242.10) (E05.10) Urinary symptom or sign (788.99) (R39.9) Tinea corporis (110.5) (B35.4) Hyperthyroidism (242.90) (E05.90) Encounter for immunization (V03.89) (Z23) Status post gastric bypass for obesity (V45.86) (Z98.84) Depression (311) (F32.9) Sarcoidosis (135) (D86.9) Nephrolithiasis (592.0) (N20.0) Biliary colic (574.20) (K80.50) Gallstones (574.20) (K80.20) Low back pain (724.2) (M54.5) Fungal infection (117.9) (B49) Osteoarthritis (715.90) (M19.90) Functional Status Working regular duty Allergies and Adverse Reactions CeleXA TABS (Allergy) Contrast Media Ready-Box MISC (Allergy) Reaction: Hives Penicillins (Allergy) Medications Diclofenac Sodium 1 % Transdermal Gel; A PPLY ONE GRAM OF GEL TOPICALLY 4 TIMES DAILY IF NEEDED FOR hand pain SHELLEY Preciado Start: 13-Oct-2017 Quantity: 1 100 GM Tube Refills: 5 buPROPion HCl - 75 MG Oral Tablet; Take 1 tablet twice daily Start: 26-Jan-2016 Refills: 0 hydrOXYzine HCl - 25 MG Oral Tablet; TAKE ONE TABLET BY MOUT H AT BEDTIME Start: 26-Jan-2016 Quantity: 90 Refills: 1 Acetaminophen 500 MG Oral Tablet; TAKE 1 TABLET EVERY 4 TO 6 HOURS NEEDED. Start: 26-Jan-2016 Refills: 0 Calcium 600-200 MG-UNIT Oral Tablet; Take 1 tablet daily Start: 25-Dec-2016 Refills: 0 Doxycycline Hyclate 100 MG Oral Capsule; TAKE 1 CAPSUL E EVERY 12 HOURS DAILY. SHELLEY Stuart Start: 15-Jun-2018 Quantity: 14 Refills: 0 clonazePAM 1 MG Oral Tablet; TAKE 1 TABLET BY MOUTH 4 TIMES DAILY Refills: 0 Omeprazole 20 MG Oral Capsule Delayed Release; TAKE 1 CAPSULE Daily SHELLEY Preciado Start: 03-Jun-2018 Quantity: 1 30 Capsule Bottle Refills: 5 methIMAzole 5 MG Oral Tablet; TAKE ONE & ONE-HALF TABL ETS BY MOUTH ONCE DAILY DAVID Miller Start: 29-Dec-2017 Quantity: 135 Refills: 3 Multi Vitamin Oral Tablet; Take one tablet twice daily. Start: 09-Apr-2016 Refills: 0 Ketoconazole 2 % External Cream; APPLY S PARINGLY TO AFFECTED AREA(S) TWICE DAILY SHELLEY Preciado Start: 24-Apr-2018 Quantity: 1 30 GM Tube Refills: 2 Fluticasone Propionate 50 MCG/ACT Nasal Suspension; USE ONE SPRAY(S) IN EACH NOSTRIL TWICE DAILY SHELLEY Preciado Start: 09-Mar-2018 Quantity: 1 9.9 ML Bottle Refills: 5 Fish Oil 1000 MG Oral Capsule Delayed Release; 2 CAPSULES TW ICE A DAY Start: 13-Oct-2017 Refills: 0 busPIRone HCl - 30 MG Oral Tablet; TAKE 1 TABLET TWICE DAILY . Start: 10-Nov-2017 Refills: 0 Vitamin D 1000 UNIT Oral Tablet; TAKE 1 TABLET DAILY. Start: 10-Nov-2017 Quantity: 30 Refills: 5 Melatonin 5 MG Oral Tablet; 1 at bedtime Start: 10-Nov-2017 Refills: 0 Procedures History of Colonoscopy (Fiberoptic) Stat us: Completed History of Complete Colonoscopy Status: Completed History of Total Abdominal Hysterectomy Status: Completed History of Laparoscopy With Fulguration Of Oviducts Status: Completed History of Laparoscop Fulguration Endometriotic Tissue Broad Status: Completed Ligaments History of Complete Colonoscopy Status: Completed History of Knee Arthroscopy (Therapeutic) Status: Completed History of Elbow Surgery Status: Complet ed History of stomach surgery Status: Compl eted History of appendectomy Status: Complete d Immunizations Tdap (Adacel) On: 03-Dec-2010 Influenza On: 14-Apr-2012 11:00 Lot #: [id number], [employer] Influenza On: 09-Mar-2013 9:52 Lot #: [id number], [employer] Fluzone Quadrivalent Intramuscular Suspension On: 4 11:09 Lot #: [id number], [employer] Fluzone Quadrivalent Intramuscular Suspension On: 5 16:10 Lot #: [id number], [employer] Pneumococcal polysaccharide vaccine, 23 valent On: 5 10:37 Lot #: [id number], [employer] Fluzone Quadrivalent 0.5 ML Intramuscular Suspension On: 15:59 Lot #: [id number], [employer] Fluzone Quadrivalent 0.5 ML Intramuscular Suspension On: Feb-2017 10:30 Lot #: [id number], [employer] Flublok Quadrivalent 0.5 ML Intramuscular Solution Pre filled Syringe On: 06-Feb-2018 16:50 Lot #: [id number], [employer] Family History Sister Family history of Graves' disease (V18.19) (Z83.49) Status: Active Family history of diabetes mellitus (V18.0) (Z83.3) Status: Active Mother Family history of hypertension (V17.49) (Z82.49) Status: Act michelle Family history of diabetes mellitus (V18.0) (Z83.3) Status: Active Family history of cardiac disorder (V17.49) (Z82.49) Status: Active Father Family history of hypertension (V17.49) (Z82.49) Status: Act michelle Family history of diabetes mellitus (V18.0) (Z83.3) Status: Active Family history of cardiac disorder (V17.49) (Z82.49) Status: Active Social History - Smoking Status Never smoker Plan of Treatment Planned Encounters Appointment; Keegan Ray M.D. Start: 15-Feb-2019 10:20 Request Planned Observations Planned Goals not documented Results In-House UA (Urology) Laboratory: In House (Pending) 21-Aug-2018 10:40 VOID, CC, CATH CC Turbid, Clear, Hazy Clear Gluc 0 Prot 0 Nitrate 0 Leuk 0 Blood 0 pH 6.5 Act87 Hepatitis C IgG Laboratory: [facility] [place] Laboratory Screen [address] [employer] [facility] [address] tel: 24-Aug-2018 10:47 Act87 Hepatitis C IgG Screen Range: Neg Neg Comments: This test was performed in compliance with [place] LawAct 87 of 2015.The result is "Negative," meaning there is no evidence ofcurrent infection or prior exposure to Hepatitis C. CBC With DIFF (Pending) Laboratory: [facility] [place] Laboratory [address] [facility] [address] tel: 25-Aug-2018 7:22 WBC 6.80 K/uL Range: 4.8-10.8 K/u L RBC 4.38 {M/uL} Range: 4.2-5.4 M/uL HEMOGLOBIN 13.9 g/dL Range: 12.0-16.0 g /dL HEMATOCRIT 40.9 % Range: 37-47 % MCV 93.4 fL Range: 80-100 fL MCH 31.7 pg Range: 25-34 pg MEAN CORPUSCULAR HGB CONC Range: 32-36 g/dL 34.0 g/dL RED CELL DISTRIBUTION WIDTH Range: 36.4 -46.3 fL SD 45.2 fL RED CELL DISTRIBUTION WIDTH Range: 11.5 -14.5 % CV 13.2 % PLATELET COUNT 146 K/uL Range: 130-400 K/uL MEAN PLATELET VOLUME 11.4 fL Range: 7.4 -10.4 fL (above high threshold) NEUT % 64.9 % Range: % LYMPH % 21.2 % Range: % MONO % 11.9 % Range: % EOS % 1.6 % Range: % BASO % 0.3 % Range: % IG% 0.1 % Range: % Comments: IG paramet er reflects the combination of Metas, Myelos andPromyelocytes. Neutrophils (Auto) 4.41 K/uL Range: 1. 4-6.5 K/uL LYMPH ABS # 1.44 K/uL Range: 1.2-3.4 K/ uL MONO ABS # 0.81 K/uL (above Range: 0.11 -0.59 K/uL high threshold) EOS ABS # 0.11 K/uL Range: 0-0.5 K/uL BASO ABS # 0.02 K/uL Range: 0-0.2 K/uL IG# 0.01 K/uL Range: 0.00-0.02 K/ uL Vital Signs 21-Aug-2018 11:22 Weight 160 lb Height 64 in BSA Calculated 1.78 m2 BMI Calculated 27.46 kg/m2 07-Aug-2018 9:23 Weight 161 lb BSA Calculated 1.78 m2 BMI Calculated 27.64 kg/m2 Encounters Appointment; Holden Villa M.D. 24-Aug-2018 7:00 Encounter Diagnosis: Problem not documented Appointment; Keegan Ray M.D. 21-Aug-2018 10:20 Encounter Diagnosis: Problem not documented Appointment; Holden Villa M.D. 07-Aug-2018 9:20 Encounter Diagnosis: Problem not documented Appointment; Jannet Mark M.D. 30-Jun-2018 10:00 Encounter Diagnosis: Problem not documented Appointment; Chyna Stuart CRNP 15-Jun-2018 11:30 Encounter Diagnosis: Problem not documented Appointment; Holden Villa M.D. 28-May-2018 10:10 Encounter Diagnosis: Problem not documented Appointment; Alisson Zhang M.D. 11-May-2018 11:45 Encounter Diagnosis: Problem not documented Appointment; Abena Preciado CRNP 24-Apr-2018 9:45 Encounter Diagnosis: Problem not documented Appointment; Alisson Zhang M.D. 06-Feb-2018 15:45 Encounter Diagnosis: Problem not documented Appointment; Abena Preciado CRNP 10-Nov-2017 14:00 Encounter Diagnosis: Problem not documented Appointment; Abena Preciado CRNP 13-Oct-2017 10:00 Encounter Diagnosis: Problem not documented Appointment; Talha Miller PA-C 30-Sep-2017 9:50 Encounter Diagnosis: Problem not documented Appointment; Braydon Mcgowan M.D. 24-Sep-2017 10:30 Encounter Diagnosis: Problem not documented Appointment; Abena Preciado CRNP 18-Mar-2017 10:30 Encounter Diagnosis: Problem not documented Appointment; Nurse Dieudonne 28-Feb-2017 10:15 Encounter Diagnosis: Problem not documented Appointment; Kevin Del Rio M.D. 25-Dec-2016 15:00 Encounter Diagnosis: Problem not documented Appointment; Abena Preciado CRNP 17-Oct-2016 10:00 Encounter Diagnosis: Problem not documented Appointment; Braydon Mcgowan M.D. 24-Sep-2016 10:30 Encounter Diagnosis: Problem not documented Appointment; Pulmonary, Funct Testing 24-Sep-2016 9:30 Encounter Diagnosis: Problem not documented Appointment; Keegan Ray M.D. 15-Feb-2019 10:20 Encounter Diagnosis: Problem not documented
== END 2018-08-27 13:48 | disposition home or self-care (01) | DRG 419 ==
LOC: ASU 04:47 → 3N 04:47

== ENCOUNTER 2021-02-15 23:19 | Observation (INO) ==
[2021-02-16] MEDS ORDERED: ASPIRIN CHEW 324 MG PO STA (00:25)
[2021-02-16] MEDS ORDERED: NITROGLYCERIN 2% OINTMENT 30GM TUBE EXT ONE (00:25)
[2021-02-16] MEDS ORDERED: SODIUM CHLORIDE 0.9% 1000ML 1,000 ML IV SCH ×2 (00:30→09:32)
[2021-02-16 00:41] LABS: Basophils # (auto) 0.03 K/uL (0-0.2); Basophils % (auto) 0.5 %; Eosinophils # (auto) 0.23 K/uL (0-0.5); Eosinophils % (auto) 3.9 %; Hematocrit (blood only) 44.5 % (37-47); Hemoglobin 15.1 g/dL (12.0-16.0); Immature Granulocytes # (auto) 0.01 K/uL (0.00-0.02); Immature Granulocytes % (auto) 0.2 %; Lymphocytes # (auto) 1.16 K/uL (1.2-3.4); Lymphocytes % (auto) 19.7 %; Mean Corpuscular Hemoglobin 31.5 pg (25-34); Mean Corpuscular Hgb Conc 33.9 g/dL (32-36); Mean Corpuscular Volume 92.9 fL (80-100); Mean Platelet Volume 11.6 fL (7.4-10.4); Monocytes # (auto) 0.77 K/uL (0.11-0.59); Monocytes % (auto) 13.1 %; Neutrophils # (auto) 3.69 K/uL (1.4-6.5); Neutrophils % (auto) 62.6 %; Platelet Count 181 K/uL (130-400); RDW Coefficient of Variation 13.2 % (11.5-14.5); RDW Standard Deviation 44.5 fL (36.4-46.3); Red Blood Count 4.79 M/uL (4.2-5.4); White Blood Count 5.89 K/uL (4.8-10.8)
[2021-02-16 00:52] LABS: Appearance Urine Clear (Clear); Bacteria Urine Automated Negative (Negative); Bilirubin Urine Negative (Negative); Blood Urine Negative (Negative); Color Urine Dark Yellow; Glucose Urine UA Negative (Negative); Ketones Urine Negative (Negative); Leukocyte Esterase Urine Trace (Negative); Nitrite Urine Negative (Negative); Protein Urine Negative (Negative); RBC Urine Automated 0-4 /hpf (0-4); Specific Gravity Urine 1.012 (1.000-1.030); Urobilinogen Urine Negative (Negative); pH Urine 6.5 (4.5-7.5)
[2021-02-16 00:54] LABS: Alanine Aminotransferase 47 U/L (12-78); Albumin Level 3.7 gm/dl (3.4-5.0); Aspartate Aminotransferase 25 U/L (15-37); BUN Creatinine Ratio 26.8 (10-20); Blood Urea Nitrogen 30 mg/dl (7-18); Calcium 9.5 mg/dl (8.5-10.1); Carbon Dioxide 28 mmol/L (21-32); Chloride 106 mmol/L (98-107); Creatinine Clr Calc Pharmacy 59.2 ml/min; Est GFR (African American) 63.6 ml/min; Est GFR (Non-African American) 54.9 ml/min; Glucose 113 mg/dl (70-99); Lipase 748 U/L (73-393); Magnesium 2.2 mg/dl (1.8-2.4); Potassium 3.9 mmol/L (3.5-5.1); Sodium 137 mmol/L (136-145)
[2021-02-16 01:05] LABS: Alkaline Phosphatase 106 U/L (45-117); Bilirubin,Total 0.3 mg/dl (0.2-1); Globulin 3.8 gm/dl (2.5-4.0); Total Protein 7.5 gm/dl (6.4-8.2); Troponin I < 0.015 ng/ml (0-0.045)
[2021-02-16 01:17] LABS: T4 Free Thyroxine 0.89 ng/dl (0.8-1.6)
[2021-02-16 02:14] LABS: D Dimer 1340 ug/L FEU (0-500)
[2021-02-16] MEDS ORDERED: methylPREDNISolone 125 MG/2 ML VIAL IV STA (02:58)
[2021-02-16] MEDS ORDERED: diphenhydrAMINE 50 MG/ML VIAL IV STA (02:58)
[2021-02-16] MEDS ORDERED: OPTIRAY 320 125ml IV ONE (03:47)
--- NOTE | 2021-02-16 07:42 | CT Scan Report ---
CT ANGIOGRAM OF THE CHEST; CT SCAN OF THE ABDOMEN AND PELVIS WITH IV CONTRAST CLINICAL HISTORY: Atypical chest pain. Generalized abdominal pain. Bloating. Elevated d-dimer. Report ed history of sarcoidosis. COMPARISON STUDY: Chest CT dated 09/06/2020. Abdominal CT dated 12/16/2019. TECHNIQUE: Following the IV administration of 120 of Optiray 320, CT angiogram of the chest is perfor med from the upper abdomen to the thoracic inlet utilizing the pulmonary embolus protocol. Images are reviewed in the axial, sagittal, coronal planes. 3-D MIPS images are created and assessed. Subsequen tly, CT scan of the abdomen and pelvis was performed from the lung bases to the proximal femora. Imag es are reviewed in the axial, sagittal, and coronal planes. The patient was reportedly premedicated i n the emergency department for a history of contrast allergy. IV contrast was administered without co mplication. A dose lowering technique was utilized adhering to the principles of ALARA. CT DOSE: 1184.88 mGy.cm FINDINGS: CHEST: Thyroid: Multinodular goiter is unchanged from previous. Thoracic aorta: The thoracic aorta is normal in caliber and demonstrates standard 3-vessel arch anato my. No dissection is seen. Pulmonary vasculature: The pulmonary trunk is normal in caliber. There are no filling defects identif ied in the main, lobar, or segmental pulmonary arteries to indicate pulmonary embolus. Heart: The heart is top normal in size and without pericardial effusion. Lungs and pleural spaces: There are numerous small nodules scattered throughout both lungs with an up per lobe predominance. Several of these contain calcifications. There is no airspace consolidation ty pical for pneumonia or pleural effusion. The trachea and central airways are clear. Mediastinum: There is mediastinal lymphadenopathy. AP window nodes measure up to 14 mm in short axis. A precarinal node measures 12 mm in short axis. Kristy: There are numerous enlarged hilar nodes which measure up to 14 mm in short axis. Axillae: There is no axillary lymphadenopathy. Bony thorax: No lytic or blastic lesions are identified. ABDOMEN AND PELVIS: Liver: The contrast-enhanced liver is normal in size, contour, and attenuation. There is no intrahepa tic or ductal dilatation. The hepatic veins and portal veins are patent. Gallbladder: Surgically absent noting clips in the gallbladder fossa. Spleen: Normal in size and attenuation. Pancreas: Unremarkable. Adrenal glands: Unremarkable. Kidneys: The contrast enhanced kidneys demonstrate cortical atrophy and are without hydronephrosis. T he kidneys enhance symmetrically. There are at least 3 nonobstructing left renal calculi which measur e up to 6 mm. Abdominal vasculature: The abdominal aorta is normal in course and caliber. Stomach and bowel: There is a moderate hiatal hernia. Postoperative change is noted in the stomach. M ild to moderate fecal retention is seen throughout the colon. There is no bowel obstruction. The appe ndix is not visualized. Peritoneum: There is no intraperitoneal free air or abdominal ascites. There is a small fat-containin g umbilical hernia. Lymphadenopathy: None. Pelvic viscera: The bladder is normal as visualized. The uterus is surgically absent. No adnexal lesi on is seen. Skeletal structures: There is mild lumbosacral spondylosis. No lytic or blastic lesions are seen. IMPRESSION: 1. There is no evidence of pulmonary embolus in the main, lobar, or segmental pulmonary arteries. 2. There are no acute infectious or inflammatory findings in the abdomen or pelvis. 3. There are numerous pulmonary nodules/granulomas are scattered throughout both lungs as well as med iastinal and hilar lymphadenopathy. This is consistent with reported history of sarcoidosis. 4. Left-sided nephrolithiasis. 5. Multinodular goiter is unchanged. 6. Additional findings as above. ACT 112: Negative or not required by law. Electronically signed by: Jeremy Holcomb M.D. 02/16/2021 7:40 AM
--- NOTE | 2021-02-16 07:47 | XRay Report ---
SINGLE VIEW CHEST CLINICAL HISTORY: Atypical chest pain. FINDINGS: An AP, portable, upright chest radiograph is compared to study dated 12/28/2019 and correlat ed with chest CT dated 09/06/2020. The cardiomediastinal silhouette is unremarkable. There is mild biba silar scarring/atelectasis. Scattered calcified granulomas are noted. No airspace consolidation or la rge pleural effusion is identified. No pneumothorax is seen. The bony thorax is grossly intact. IMPRESSION: No acute cardiopulmonary abnormality. ACT 112: Negative or not required by law. Electronically signed by: Jeremy Holcomb M.D. 02/16/2021 7:45 AM
--- NOTE | 2021-02-16 08:39 | Emergency Department Note ---
History of Present Illness General Chief complaint: Cardiac Assessment Stated complaint: HIGH BP, HEARTBURN/CHEST PAIN Time Seen by Provider: 02/16/21 00:11 History of Present Illness Maximum Pain Intensity: 2 This is a 55-year-old female presenting to the emergency department for evaluat ion of palpitations that began around dinnertime, which shortly thereafter turned into chest pain and heaviness. The patient states that her discomfort is a dull, heavy, 2/10 in the central chest that does not radiate. She states that she felt like her heart was going very fast after eating, but now it has improved. The patient has not had recent fevers or chills. No difficulty eating or drinking. She does report some abdominal bloating the past few days which is somewhat atypical for her. She is otherwise using the bathroom is normal. The patient does have a history of sarcoid and DVT in the past. No recent travel history. She has not take anything [id number] for her symptoms. Home Medications Medication Instructions Recorded Confirmed Type calcium carbonate 600 mg calcium 600 mg PO BID 08/12/18 02/16/21 History (1,500 mg) tablet (Calcium) cyanocobalamin (vitamin B-12) 1,000 mcg PO QAM 08/12/18 02/16/21 History 1,000 mcg tablet (Vitamin B-12) multivitamin 1 tab PO QAM 08/12/18 02/16/21 History cholecalciferol (vitamin D3) 25 1,000 unit PO DAILY 12/18/18 02/16/21 History mcg (1,000 unit) tablet (Vitamin D3) budesonide-formoterol HFA 160 2 puff INHALATION BID #10.2 g 01/07/20 02/16/21 Rx mcg-4.5 mcg/actuation aerosol inhaler (Symbicort) melatonin 10 mg capsule 10 mg PO HS 04/11/20 02/16/21 History omega 7-erg-ddt-fish oil 1,000 mg 1 cap PO BID cap 04/11/20 02/16/21 History (120 mg-180 mg) capsule (Fish Oil) buspirone 30 mg tablet 30 mg PO BID #60 tab 04/24/20 02/16/21 Rx methocarbamol 750 mg tablet 750 mg PO TID PRN #30 tab 05/30/20 02/16/21 Rx clonazepam 1 mg tablet (Klonopin) 1 mg PO BID tab 12/07/20 02/16/21 History famotidine 20 mg tablet 20 mg PO DAILY #30 tab 12/11/20 02/16/21 Rx pantoprazole 40 mg tablet,delayed 40 mg PO BID #60 tab 12/15/20 02/16/21 Rx release (Protonix) methimazole 5 mg tablet 10 mg PO QAM #180 tab 01/10/21 02/16/21 Rx bupropion HCl 150 mg tablet,12 hr 150 mg PO BID #90 ea 01/23/21 02/16/21 Rx sustained-release nitrofurantoin 100 mg PO Q12H 7 Days #14 cap 02/13/21 02/16/21 Rx monohydrate/macrocrystals 100 mg capsule (Macrobid) trazodone 150 mg tablet 150 mg PO HS 02/13/21 02/16/21 History clonazepam 0.5 mg tablet 0.5 mg PO DAILY PRN 02/16/21 02/16/21 History mirtazapine 30 mg tablet 30 mg PO DAILY 02/16/21 02/16/21 History omeprazole 20 mg capsule,delayed 20 mg PO DAILY 02/16/21 02/16/21 History release Allergies Allergy/AdvReac Type Severity Reaction Status Date / Time Iodinated Contrast Media Allergy Unknown hives Verified 02/15/21 23:46 latex Allergy Redness of Verified 02/15/21 23:46 Skin vaccine adjuvant system, Allergy ARM Verified 02/15/21 23:46 [id number] liposomal SWELLED UP [From Shingrix (PF)] varicella-zoster virus Allergy ARM Verified 02/15/21 23:46 glycoprotein E, recombinant SWELLED UP [From Shingrix (PF)] citalopram AdvReac Unknown headache Verified 02/15/21 23:46 Penicillins AdvReac Unknown mouth sores Verified 02/15/21 23:46 celexa Allergy Unknown Unknown Uncoded 02/15/21 23:46 Past Med/Surg History Medical History Chronic back pain Deep vein thrombosis LLE around 2014 S/P ANTICOAGULATION [place] Dizziness GERD (gastroesophageal reflux disease) Headache History of endometriosis Polydipsia Surgical History History of arthroscopy of knee LEFT History of colonoscopy (~2018) History of elbow surgery LEFT History of esophagogastroduodenoscopy (EGD) (~2018) History of hysterectomy with unilateral oophorectomy W/APPENDECTOMY History of sleeve gastrectomy History of tubal ligation S/P laparoscopic cholecystectomy (~2019) Family History Sister Graves disease Other Diabetes Hypertension Denies family history of Ovarian cancer Prostate cancer Myocardial infarction Breast cancer Colorectal cancer Social History Smoking Status: Never smoker Second Hand Exposure: Yes ( A CHILD); Hx Alcohol Use: No Hx Substance Use: No Preferred Language: Chinese Communication Ability: Effective Visual Impairment: No Limitations Butt Trimmer Required: No Beliefs That Will Affect Care: Episcopalian Episcopalian Beliefs: CAODAISM Current Living Situation: Spouse Feels Safe at Home: Yes Assistive Devices: Glasses Review of Systems A total of 10 systems reviewed and were otherwise negative Physical Exam Vital Signs Vital Signs - 24 hr 02/15/21 23:23 02/15/21 23:46 02/15/21 23:50 Temperature 36.6 C Temperature Source Temporal Artery Scan Pulse Rate 107 H 77 71 Pulse Rate [Apical] 73 Pulse Rate from SpO2 Sensor 77 71 Pulse Rhythm [Apical] Pulse Strength [Apical] Respiratory Rate 16 15 19 Respiratory Effort / Characteristics Respiratory Depth Respiratory Pattern Blood Pressure 152/84 H Blood Pressure [Right Arm] 159/111 H Blood Pressure Mean 106 Blood Pressure Mean [Right Arm] 127 Blood Pressure Position Sitting Blood Pressure Position [Right Arm] Sitting Pulse Oximetry 94 95 95 Oxygen Delivery Method Room Air Room Air Sepsis Recent Fever Within 48 Hours No Sepsis New/Unexplained Change in Mental Status No Sepsis Action Taken by Nursing No Action Required 02/16/21 00:00 02/16/21 00:10 02/16/21 00:20 Temperature Temperature Source Pulse Rate 75 72 75 Pulse Rate [Apical] Pulse Rate from SpO2 Sensor 75 72 74 Pulse Rhythm [Apical] Pulse Strength [Apical] Respiratory Rate 13 15 18 Respiratory Effort / Characteristics Respiratory Depth Respiratory Pattern Blood Pressure 124/96 Blood Pressure [Right Arm] Blood Pressure Mean 105 Blood Pressure Mean [Right Arm] Blood Pressure Position Blood Pressure Position [Right Arm] Pulse Oximetry 94 95 95 Oxygen Delivery Method Sepsis Recent Fever Within 48 Hours Sepsis New/Unexplained Change in Mental Status Sepsis Action Taken by Nursing 02/16/21 00:30 02/16/21 00:46 02/16/21 00:50 Temperature Temperature Source Pulse Rate 68 70 67 Pulse Rate [Apical] 70 Pulse Rate from SpO2 Sensor 69 68 67 Pulse Rhythm [Apical] Pulse Strength [Apical] Respiratory Rate 13 17 16 Respiratory Effort / Characteristics Respiratory Depth Respiratory Pattern Blood Pressure 127/85 Blood Pressure [Right Arm] 127/85 Blood Pressure Mean 99 Blood Pressure Mean [Right Arm] 99 Blood Pressure Position Blood Pressure Position [Right Arm] Pulse Oximetry 95 95 95 Oxygen Delivery Method Room Air Sepsis Recent Fever Within 48 Hours Sepsis New/Unexplained Change in Mental Status Sepsis Action Taken by Nursing 02/16/21 01:00 02/16/21 04:00 02/16/21 06:00 Temperature Temperature Source Pulse Rate 65 Pulse Rate [Apical] 62 62 Pulse Rate from SpO2 Sensor 65 Pulse Rhythm [Apical] Regular Pulse Strength [Apical] Respiratory Rate 15 16 18 Respiratory Effort / Characteristics Non-Labored Non-Labored Respiratory Depth Normal Normal Respiratory Pattern Blood Pressure 128/80 Blood Pressure [Right Arm] 140/96 Blood Pressure Mean 96 Blood Pressure Mean [Right Arm] 110 Blood Pressure Position Blood Pressure Position [Right Arm] Pulse Oximetry 95 94 93 Oxygen Delivery Method Room Air Sepsis Recent Fever Within 48 Hours Sepsis New/Unexplained Change in Mental Status Sepsis Action Taken by Nursing 02/16/21 08:00 Temperature Temperature Source Pulse Rate Pulse Rate [Apical] 72 Pulse Rate from SpO2 Sensor Pulse Rhythm [Apical] Regular Pulse Strength [Apical] Normal Respiratory Rate 18 Respiratory Effort / Characteristics Non-Labored Respiratory Depth Normal Respiratory Pattern Regular Blood Pressure Blood Pressure [Right Arm] 141/87 H Blood Pressure Mean Blood Pressure Mean [Right Arm] 105 Blood Pressure Position Blood Pressure Position [Right Arm] Lying Pulse Oximetry 97 Oxygen Delivery Method Room Air Sepsis Recent Fever Within 48 Hours Sepsis New/Unexplained Change in Mental Status Sepsis Action Taken by Nursing VITALS: Vitals are noted on the nurse's note and reviewed by myself. Vital signs stable. GENERAL: Well-developed, well-nourished, white female, who is in no acute distress and resting comfortably. Patient is cooperative with the examination. HEAD: Normocephalic atraumatic. NECK: Supple without nuchal rigidity. No lymphadenopathy. No thyromegaly. Cervical spine is nontender. HEART: Regular rate and rhythm without murmurs gallops or rubs. LUNGS: Clear to auscultation bilaterally without wheezes, rales or rhonchi. No retractions or accessory muscle use. ABDOMEN: Positive normal bowel sounds x 4. Soft, nontender, without masses or organomegaly. No guarding or rebound tenderness. MUSCULOSKELETAL: No muscle atrophy, erythema, or edema noted. Full range of motion in all extremities. NEURO: Patient was alert and oriented to person place and time. CN II through XII grossly intact. Course Administered Medications Discontinued Medications Aspirin (Aspirin Chew 324 Mg) 324 mg PO NOW STA Stop: 02/16/21 00:26 Last Admin: 02/16/21 00:43 Dose: 324 mg Documented by: [id number] Diphenhydramine HCl (Diphenhydramine 50 Mg/Ml Vial) 50 mg IV NOW STA Stop: 02/16/21 02:59 Last Admin: 02/16/21 03:17 Dose: 50 mg Documented by: [id number] Sodium Chloride (Nss 1000ml) 1,000 mls @ 999 mls/hr IV .[id number] YOLANDA Stop: 02/16/21 01:30 Last Infusion: 02/16/21 01:43 Dose: 0 mls/hr Documented by: [id number] Admin: 02/16/21 00:43 Dose: 999 mls/hr Documented by: [id number] Ioversol (Optiray 320 125ml) 120 ml IV ONCE ONE Stop: 02/16/21 03:48 Last Admin: 02/16/21 03:48 Dose: 120 ml Documented by: [id number] Methylprednisolone (Methylprednisolone 125 Mg/2 Ml Vial) 125 mg IV NOW STA Stop: 02/16/21 02:59 Last Admin: 02/16/21 03:17 Dose: 125 mg Documented by: [id number] Nitroglycerin (Nitroglycerin 2% Ointment 30gm Tube) 1 inch EXT NOW ONE Stop: 02/16/21 00:26 Last Admin: 02/16/21 00:43 Dose: 1 inch Documented by: [id number] Medical Decision Making Differential Diagnosis Differential diagnosis includes, but is not limited to: Myocardial infarction, dysrhythmia, pericarditis, pneumothorax, aortic aneurysm/dissection, DVT/PE, anxiety, GERD, PUD, electrolyte imbalance, thyroid disorder, pneumonia, bronchitis, pancreatitis, and others Laboratory Data Result diagrams: 02/15/21 23:20 02/15/21 23:20 Lab Results 02/15/21 02/15/21 02/16/21 Range/Units 23:20 23:20 00:37 WBC 5.89 (4.8-10.8) K/uL RBC 4.79 (4.2-5.4) M/uL Hgb 15.1 (12.0-16.0) g/dL Hct 44.5 (37-47) % MCV 92.9 (80-100) fL MCH 31.5 (25-34) pg MCHC 33.9 (32-36) g/dL RDW Std Deviation 44.5 (36.4-46.3) fL RDW Coeff of Winsome 13.2 (11.5-14.5) % Plt Count 181 (130-400) K/uL MPV 11.6 H (7.4-10.4) fL Immature Gran % (Auto) 0.2 % Neut % (Auto) 62.6 % Lymph % (Auto) 19.7 % [place] % (Auto) 13.1 % Eos % (Auto) 3.9 % Baso % (Auto) 0.5 % Neut # (Auto) 3.69 (1.4-6.5) K/uL Lymph # (Auto) 1.16 L (1.2-3.4) K/uL [place] # (Auto) 0.77 H (0.11-0.59) K/uL Eos # (Auto) 0.23 (0-0.5) K/uL Baso # (Auto) 0.03 (0-0.2) K/uL Immature Gran # (Auto) 0.01 (0.00-0.02) K/uL D-Dimer (0-500) ug/L FEU Sodium 137 (136-145) mmol/L Potassium 3.9 (3.5-5.1) mmol/L Chloride 106 (98-107) mmol/L Carbon Dioxide 28 (21-32) mmol/L Anion Gap 3.0 (3-11) BUN 30 H (7-18) mg/dl Creatinine 1.12 (0.6-1.2) mg/dl Est Cr Clr Drug Dosing 59.2 ml/min Est GFR ( Amer) 63.6 ml/min Est GFR (Non-Af Amer) 54.9 ml/min BUN/Creatinine Ratio 26.8 H (10-20) Glucose 113 H (70-99) mg/dl Calcium 9.5 (8.5-10.1) mg/dl Magnesium 2.2 (1.8-2.4) mg/dl Total Bilirubin 0.3 (0.2-1) mg/dl AST 25 (15-37) U/L ALT 47 (12-78) U/L Alkaline Phosphatase 106 (45-117) U/L Troponin I < 0.015 (0-0.045) ng/ml Total Protein 7.5 (6.4-8.2) gm/dl Albumin 3.7 (3.4-5.0) gm/dl Globulin 3.8 (2.5-4.0) gm/dl Albumin/Globulin Ratio 1.0 (0.9-2) Lipase 748 H (73-393) U/L TSH 0.120 L (0.300-4.500) uIu/ml Free T4 0.89 (0.8-1.6) ng/dl Urine Color Dark Yellow Urine Appearance Clear (Clear) Urine pH 6.5 (4.5-7.5) Ur Specific [place] 1.012 (1.000-1.030) Urine Protein Negative (Negative) Urine Glucose (UA) Negative (Negative) Urine Ketones Negative (Negative) Urine Blood Negative (Negative) Urine Nitrite Negative (Negative) Urine Bilirubin Negative (Negative) Urine Urobilinogen Negative (Negative) Ur Leukocyte Esterase Trace H (Negative) Urine WBC (Auto) 1-5 (0-5) /hpf Urine RBC (Auto) 0-4 (0-4) /hpf U Hyaline Cast (Auto) 1-5 (0-5) /lpf U Epithel Cells (Auto) 5-10 H (0-5) /lpf Urine Bacteria (Auto) Negative (Negative) COVID-19 Eval Order SARS-CoV-2 (PCR) (Negative) 02/16/21 02/16/21 02/16/21 Range/Units 00:37 00:37 01:27 WBC (4.8-10.8) K/uL RBC (4.2-5.4) M/uL Hgb (12.0-16.0) g/dL Hct (37-47) % MCV (80-100) fL MCH (25-34) pg MCHC (32-36) g/dL RDW Std Deviation (36.4-46.3) fL RDW Coeff of Winsome (11.5-14.5) % Plt Count (130-400) K/uL MPV (7.4-10.4) fL Immature Gran % (Auto) % Neut % (Auto) % Lymph % (Auto) % [place] % (Auto) % Eos % (Auto) % Baso % (Auto) % Neut # (Auto) (1.4-6.5) K/uL Lymph # (Auto) (1.2-3.4) K/uL [place] # (Auto) (0.11-0.59) K/uL Eos # (Auto) (0-0.5) K/uL Baso # (Auto) (0-0.2) K/uL Immature Gran # (Auto) (0.00-0.02) K/uL D-Dimer 1340 H* (0-500) ug/L FEU Sodium (136-145) mmol/L Potassium (3.5-5.1) mmol/L Chloride (98-107) mmol/L Carbon Dioxide (21-32) mmol/L Anion Gap (3-11) BUN (7-18) mg/dl Creatinine (0.6-1.2) mg/dl Est Cr Clr Drug Dosing ml/min Est GFR ( Amer) ml/min Est GFR (Non-Af Amer) ml/min BUN/Creatinine Ratio (10-20) Glucose (70-99) mg/dl Calcium (8.5-10.1) mg/dl Magnesium (1.8-2.4) mg/dl Total Bilirubin (0.2-1) mg/dl AST (15-37) U/L ALT (12-78) U/L Alkaline Phosphatase (45-117) U/L Troponin I (0-0.045) ng/ml Total Protein (6.4-8.2) gm/dl Albumin (3.4-5.0) gm/dl Globulin (2.5-4.0) gm/dl Albumin/Globulin Ratio (0.9-2) Lipase (73-393) U/L TSH (0.300-4.500) uIu/ml Free T4 (0.8-1.6) ng/dl Urine Color Urine Appearance (Clear) Urine pH (4.5-7.5) Ur Specific [place] (1.000-1.030) Urine Protein (Negative) Urine Glucose (UA) (Negative) Urine Ketones (Negative) Urine Blood (Negative) Urine Nitrite (Negative) Urine Bilirubin (Negative) Urine Urobilinogen (Negative) Ur Leukocyte Esterase (Negative) Urine WBC (Auto) (0-5) /hpf Urine RBC (Auto) (0-4) /hpf U Hyaline Cast (Auto) (0-5) /lpf U Epithel Cells (Auto) (0-5) /lpf Urine Bacteria (Auto) (Negative) COVID-19 Eval Order Covid19 at [facility] SARS-CoV-2 (PCR) NEGATIVE (Negative) Imaging Data Radiologist's Impression: Chest X-Ray 02/16/21 00:23 SINGLE VIEW CHEST CLINICAL HISTORY: Atypical chest pain. FINDINGS: An AP, portable, upright chest radiograph is compared to study dated 12/28/2019 and correlated with chest CT dated 09/06/2020. The cardiomediastinal silhouette is unremarkable. There is mild bibasilar scarring/atelectasis. Scattered calcified granulomas are noted. No airspace consolidation or large pleural effusion is identified. No pneumothorax is seen. The bony thorax is grossly intact. IMPRESSION: No acute cardiopulmonary abnormality. ACT 112: Negative or not required by law. Electronically signed by: Jeremy Holcomb M.D. 02/16/2021 7:45 AM Abdomen/Pelvis CT 02/16/21 02:58 CT ANGIOGRAM OF THE CHEST; CT SCAN OF THE ABDOMEN AND PELVIS WITH IV CONTRAST CLINICAL HISTORY: Atypical chest pain. Generalized abdominal pain. Bloating. Elevated d-dimer. Reported history of sarcoidosis. COMPARISON STUDY: Chest CT dated 09/06/2020. Abdominal CT dated 12/16/2019. TECHNIQUE: Following the IV administration of 120 of Optiray 320, CT angiogram of the chest is performed from the upper abdomen to the thoracic inlet utilizing the pulmonary embolus protocol. Images are reviewed in the axial, sagittal, coronal planes. 3-D MIPS images are created and assessed. Subsequently, CT scan of the abdomen and pelvis was performed from the lung bases to the proximal femora. Images are reviewed in the axial, sagittal, and coronal planes. The patient was reportedly premedicated in the emergency department for a history of contrast allergy. IV contrast was administered without complication. A dose lowering technique was utilized adhering to the principles of ALARA. CT DOSE: 1184.88 mGy.cm FINDINGS: CHEST: Thyroid: Multinodular goiter is unchanged from previous. Thoracic aorta: The thoracic aorta is normal in caliber and demonstrates standard 3-vessel arch anatomy. No dissection is seen. Pulmonary vasculature: The pulmonary trunk is normal in caliber. There are no filling defects identified in the main, lobar, or segmental pulmonary arteries to indicate pulmonary embolus. Heart: The heart is top normal in size and without pericardial effusion. Lungs and pleural spaces: There are numerous small nodules scattered throughout both lungs with an upper lobe predominance. Several of these contain calcifications. There is no airspace consolidation typical for pneumonia or pleural effusion. The trachea and central airways are clear. Mediastinum: There is mediastinal lymphadenopathy. AP window nodes measure up to 14 mm in short axis. A precarinal node measures 12 mm in short axis. Kristy: There are numerous enlarged hilar nodes which measure up to 14 mm in short axis. Axillae: There is no axillary lymphadenopathy. Bony thorax: No lytic or blastic lesions are identified. ABDOMEN AND PELVIS: Liver: The contrast-enhanced liver is normal in size, contour, and attenuation. There is no intrahepatic or ductal dilatation. The hepatic veins and portal veins are patent. Gallbladder: Surgically absent noting clips in the gallbladder fossa. Spleen: Normal in size and attenuation. Pancreas: Unremarkable. Adrenal glands: Unremarkable. Kidneys: The contrast enhanced kidneys demonstrate cortical atrophy and are without hydronephrosis. The kidneys enhance symmetrically. There are at least 3 nonobstructing left renal calculi which measure up to 6 mm. Abdominal vasculature: The abdominal aorta is normal in course and caliber. Stomach and bowel: There is a moderate hiatal hernia. Postoperative change is noted in the stomach. Mild to moderate fecal retention is seen throughout the colon. There is no bowel obstruction. The appendix is not visualized. Peritoneum: There is no intraperitoneal free air or abdominal ascites. There is a small fat-containing umbilical hernia. Lymphadenopathy: None. Pelvic viscera: The bladder is normal as visualized. The uterus is surgically absent. No adnexal lesion is seen. Skeletal structures: There is mild lumbosacral spondylosis. No lytic or blastic lesions are seen. IMPRESSION: 1. There is no evidence of pulmonary embolus in the main, lobar, or segmental pulmonary arteries. 2. There are no acute infectious or inflammatory findings in the abdomen or pelvis. 3. There are numerous pulmonary nodules/granulomas are scattered throughout both lungs as well as mediastinal and hilar lymphadenopathy. This is consistent with reported history of sarcoidosis. 4. Left-sided nephrolithiasis. 5. Multinodular goiter is unchanged. 6. Additional findings as above. ACT 112: Negative or not required by law. Electronically signed by: Jeremy Holcomb M.D. 02/16/2021 7:40 AM Chest CTA 02/16/21 02:58 CT ANGIOGRAM OF THE CHEST; CT SCAN OF THE ABDOMEN AND PELVIS WITH IV CONTRAST CLINICAL HISTORY: Atypical chest pain. Generalized abdominal pain. Bloating. Elevated d-dimer. Reported history of sarcoidosis. COMPARISON STUDY: Chest CT dated 09/06/2020. Abdominal CT dated 12/16/2019. TECHNIQUE: Following the IV administration of 120 of Optiray 320, CT angiogram of the chest is performed from the upper abdomen to the thoracic inlet utilizing the pulmonary embolus protocol. Images are reviewed in the axial, sagittal, coronal planes. 3-D MIPS images are created and assessed. Subsequently, CT scan of the abdomen and pelvis was performed from the lung bases to the proximal femora. Images are reviewed in the axial, sagittal, and coronal planes. The patient was reportedly premedicated in the emergency department for a history of contrast allergy. IV contrast was administered without complication. A dose lowering technique was utilized adhering to the principles of ALARA. CT DOSE: 1184.88 mGy.cm FINDINGS: CHEST: Thyroid: Multinodular goiter is unchanged from previous. Thoracic aorta: The thoracic aorta is normal in caliber and demonstrates standard 3-vessel arch anatomy. No dissection is seen. Pulmonary vasculature: The pulmonary trunk is normal in caliber. There are no filling defects identified in the main, lobar, or segmental pulmonary arteries to indicate pulmonary embolus. Heart: The heart is top normal in size and without pericardial effusion. Lungs and pleural spaces: There are numerous small nodules scattered throughout both lungs with an upper lobe predominance. Several of these contain calcifications. There is no airspace consolidation typical for pneumonia or pleural effusion. The trachea and central airways are clear. Mediastinum: There is mediastinal lymphadenopathy. AP window nodes measure up to 14 mm in short axis. A precarinal node measures 12 mm in short axis. Kristy: There are numerous enlarged hilar nodes which measure up to 14 mm in short axis. Axillae: There is no axillary lymphadenopathy. Bony thorax: No lytic or blastic lesions are identified. ABDOMEN AND PELVIS: Liver: The contrast-enhanced liver is normal in size, contour, and attenuation. There is no intrahepatic or ductal dilatation. The hepatic veins and portal veins are patent. Gallbladder: Surgically absent noting clips in the gallbladder fossa. Spleen: Normal in size and attenuation. Pancreas: Unremarkable. Adrenal glands: Unremarkable. Kidneys: The contrast enhanced kidneys demonstrate cortical atrophy and are without hydronephrosis. The kidneys enhance symmetrically. There are at least 3 nonobstructing left renal calculi which measure up to 6 mm. Abdominal vasculature: The abdominal aorta is normal in course and caliber. Stomach and bowel: There is a moderate hiatal hernia. Postoperative change is noted in the stomach. Mild to moderate fecal retention is seen throughout the colon. There is no bowel obstruction. The appendix is not visualized. Peritoneum: There is no intraperitoneal free air or abdominal ascites. There is a small fat-containing umbilical hernia. Lymphadenopathy: None. Pelvic viscera: The bladder is normal as visualized. The uterus is surgically absent. No adnexal lesion is seen. Skeletal structures: There is mild lumbosacral spondylosis. No lytic or blastic lesions are seen. IMPRESSION: 1. There is no evidence of pulmonary embolus in the main, lobar, or segmental pulmonary arteries. 2. There are no acute infectious or inflammatory findings in the abdomen or pelvis. 3. There are numerous pulmonary nodules/granulomas are scattered throughout both lungs as well as mediastinal and hilar lymphadenopathy. This is consistent with reported history of sarcoidosis. 4. Left-sided nephrolithiasis. 5. Multinodular goiter is unchanged. 6. Additional findings as above. ACT 112: Negative or not required by law. Electronically signed by: Jeremy Holcomb M.D. 02/16/2021 7:40 AM ECG Data Attestation: I personally reviewed and interpreted this ECG as follows: Additional Comments: Sinus rhythm with 1st degree A-V block @[address] elevation Right bundle branch block No previous ECGs available MDM Narrative Physical exam and history were performed. Nursing notes, EMR, and Medication List were personally reviewed. Patient appears to have chest discomfort and heart palpitations bringing her to the emergency department. IV access was established and labs were obtained. The patient was given aspirin and Nitropaste. An order was placed for continuous cardiac monitoring. The monitor shows a rate of 72 with normal sinus rhythm. The patient's blood work is as above and was reviewed. She does not have a significantly elevated white blood cell count, gross anemia, bandemia, or significant electrolyte imbalance. Lipase is slightly elevated at 748. Transaminases are not diagnostic. TSH is low at 0.120, however she does have thyroid dysfunction and evidently had an increase in her medication recently. Urine is without obvious infection. Troponin x1 is negative. D-dimer is elevated at greater than 1300. The patient has a contrast allergy, but is able to undergo CT after premedication. She was given Solu-Medrol and Benadryl. CT scan of the chest was performed, as well as CT scan of the abdomen because of the elevated lipase. CT scans were reviewed by myself and radiology showing no acute process. I did have a lengthy discussion with the patient regarding options of care. The patient is concerned as she did get improvement of discomfort after the aspirin and Nitropaste. She likely will need further cardiac evaluation. The case was discussed with the on-call hospitalist team, who agreed to evaluate patient here in the ER. Please see their dictation for further patient course, plan, disposition. The chart was completed utilizing [employer] Speech Voice Recognition Software. Grammatical errors, random word insertions, pronoun errors, and incomplete sentences are an occasional consequence of this system due to software limitations, ambient noise, and hardware issues. Any formal questions or concer ns about the content, text, or information contained within the body of this dictation should be directly addressed to the provider for clarification. . Impression & Plan Atypical chest pain, Heart palpitations Discharge Plan Visit Data Chief Complaint: Cardiac Assessment Stated Complaint: HIGH BP, HEARTBURN/CHEST PAIN ED Provider: Amber August ED Midlevel Provider: Yong Rhoades Discharge Problem: Atypical chest pain, Heart palpitations Forms Stand Alone Forms: My [employer] Prescriptions Prescriptions: No Action buspirone 30 mg tablet 30 mg PO BID Qty: 60 RF: 6 methocarbamol 750 mg tablet 750 mg PO TID PRN (Reason: muscle relaxer) Qty: 30 RF: 0 famotidine 20 mg tablet 20 mg PO DAILY Qty: 30 RF: 11 pantoprazole [Protonix] 40 mg tablet,delayed release (DR/EC) 40 mg PO BID Qty: 60 RF: 11 methimazole 5 mg tablet 10 mg PO QAM Qty: 180 RF: 0 bupropion HCl 150 mg tablet sustained-release 12 hr 150 mg PO BID Qty: 90 RF: 3 trazodone 150 mg tablet 150 mg PO HS RF: 0 nitrofurantoin monohyd/m-cryst [Macrobid] 100 mg capsule 100 mg PO Q12H 7 Days Qty: 14 RF: 0 budesonide-formoterol [Symbicort] 160-4.5 mcg/actuation HFA aerosol inhaler 2 puff inhalation BID Qty: 10.2 RF: 3 melatonin 10 mg capsule 10 mg PO HS RF: 0 omega 0-pme-arw-fish oil [Fish Oil] 1,000 mg (120 mg-180 mg) capsule 1 cap PO BID RF: 0 clonazepam [Klonopin] 1 mg tablet 1 mg PO BID RF: 0 cholecalciferol (vitamin D3) [Vitamin D3] 1,000 unit (25 mcg) Tablet 1,000 unit PO DAILY RF: 0 multivitamin Tablet 1 tab PO QAM RF: 0 cyanocobalamin (vitamin B-12) [Vitamin B-12] 1,000 mcg Tablet 1,000 mcg PO QAM RF: 0 calcium carbonate [Calcium 600] 600 mg calcium (1,500 mg) Tablet 600 mg PO BID RF: 0 clonazepam 0.5 mg tablet 0.5 mg PO DAILY PRN (Reason: Anxiety) RF: 0 omeprazole 20 mg capsule,delayed release(DR/EC) 20 mg PO DAILY RF: 0 mirtazapine 30 mg tablet 30 mg PO DAILY RF: 0 Referrals Referrals: Alisson Zhang MD [Primary Care Provider] -
[2021-02-16] MEDS ORDERED: methIMAzole 5 MG TABLET PO SCH (09:32)
[2021-02-16] MEDS ORDERED: METOPROLOL TARTRATE 25 MG TAB PO SCH (09:32)
[2021-02-16] MEDS ORDERED: NITROGLYCERIN 2% OINTMENT 30GM TUBE EXT SCH (09:32)
[2021-02-16] MEDS ORDERED: ASPIRIN 81 MG ECTAB PO SCH (09:32)
--- NOTE | 2021-02-16 09:35 | History & Physical Report ---
Date of Service February 16, 2021 Assessment & Plan (1) Atypical chest pain: Plan: 55 y/o WF. ho hyperthyroidism, and diet controlled HTN/HLD- presented with cardiac awareness and associated atypical CP. - HR slightly tachycardic upon arrival (110) - initial trop negative - EKG IS SHOWING T-WAVE INVERSION IN ANT/SEP LEADS (when compared to EKG done 2019) - perhaps she is having issues with tachycardia from uncontrolled hyperthyroidism and subsequently had some rate related ischemia? - repeat EKG now and in am - repeat troponin now and again in 6 hours - start treatment dose lovenox until ACS ruled out - topical nitropaste for vasodilation - ASA and start BB (for cardiac protection but also tachycardia) and start statin therapy - lipid panel for risk stratification - obtain echo to assess LVF - consult cardiology-- appreciate recommendations (2) Heart palpitations: Plan: - ? issues with tachycardia from uncontrolled hyperthyroidism - HR 110 upon arrival. Currently 80-90's - add BB as outlined above (HR and BP can tolerate) (3) Abnormal EKG: Plan: - t wave inversion in the ant/sept leads when compared to EKG done in 2019--> see above as outlined (4) Hyperthyroidism: Plan: - increase tapazole to BID (message out to Dr. Benavides- pt's established endo, to ensure that he is agreeable with this plan) - patient is for subtotal thyroidectomy in the upcoming months (5) Elevated d-dimer: Plan: - CTA done showing no evidence of PE (6) Anxiety and depression: Plan: - continue Wellbutrin, buspar, klonopin, trazadone, remeron as prior to hospitalization - this could be contributing to symptoms (7) HTN (hypertension): Plan: - "diet controlled" but running in the 140's systolic here - will tolerate addition of BB as outlined above (8) Hyperlipidemia: Plan: - continue fish oil - high intensity statin for now as outlined about - lipid panel for risk stratification History of Present Illness Chief Complaint: cardiac awareness Primary Care Provider: Alisson Zhang MD Mrs. Cosme is a 55 y/o WF with a PMHx hyperthyroidism, mixed anxiety/depression, sarcoidosis with pulmonary involvement, diet-controlled HTN and HLD and asthma. She presented to the ED complaining of cardiac awareness. Was in her usual state of health until yesterday morning when she was aware of her heart beating. Seem to be ongoing and constant throughout most of the day. Progressive in its severity. Into the evening, she felt that her heart was racing and she was having associated chest pressure with an ache down her right arm. In addition, she had associated shortness of breath. Denied nausea or diaphoresis. Presented to the ED where she was found to be slightly tachycardic (110) but otherwise hemodynamically stable. Her lab data was unremarkable other than an elevated D-dimer at 1340. This led to a CTA that showed no evidence of PE. Pulmonary nodules consistent with sarcoidosis noted. Her troponin was negative. EKG did show T wave inversion in the anteroseptal leads which was a new finding compared to an EKG done in 2019. Otherwise, magnesium level was normal. Lipase was slightly elevated 748 without abdominal pain. Covid test was negative. Patient subsequently hospitalized for further evaluation and care. Further labs drawn. TSH noted to be low at 0.12. She does have known hyperthyroidism and takes Tapazole 10 mg every morning. She does follow with Dr. Benavides and is planning for a subtotal thyroidectomy within the upcoming months. Patient does not have an underlying history of known cardiac disease. She has never had a stress test and/or cardiac catheterization. She does not have a family history of premature coronary disease. She does not use tobacco. Allergies Allergy/AdvReac Type Severity Reaction Status Date / Time Iodinated Contrast Media Allergy Unknown hives Verified 02/20/21 10:26 latex Allergy Redness of Verified 02/20/21 10:26 Skin vaccine adjuvant system, Allergy ARM Verified 02/20/21 10:26 AS01B liposomal SWELLED UP [From Shingrix (PF)] varicella-zoster virus Allergy ARM Verified 02/20/21 10:26 glycoprotein E, recombinant SWELLED UP [From Shingrix (PF)] citalopram AdvReac Unknown headache Verified 02/20/21 10:26 Penicillins AdvReac Unknown mouth sores Verified 02/20/21 10:26 celexa Allergy Unknown Unknown Uncoded 02/20/21 10:26 Home Medications Medication Instructions Recorded Confirmed Type calcium carbonate 600 mg calcium 600 mg PO BID 08/12/18 02/20/21 History (1,500 mg) tablet (Calcium) cyanocobalamin (vitamin B-12) 1,000 mcg PO QAM 08/12/18 02/20/21 History 1,000 mcg tablet (Vitamin B-12) multivitamin 1 tab PO QAM 08/12/18 02/20/21 History cholecalciferol (vitamin D3) 25 1,000 unit PO DAILY 12/18/18 02/20/21 History mcg (1,000 unit) tablet (Vitamin D3) budesonide-formoterol HFA 160 2 puff INHALATION BID #10.2 g 01/07/20 02/20/21 Rx mcg-4.5 mcg/actuation aerosol inhaler (Symbicort) omega 3-lnv-kgt-fish oil 1,000 mg 1 cap PO BID cap 04/11/20 02/20/21 History (120 mg-180 mg) capsule (Fish Oil) buspirone 30 mg tablet 30 mg PO BID #60 tab 04/24/20 02/20/21 Rx methocarbamol 750 mg tablet 750 mg PO TID PRN #30 tab 05/30/20 02/20/21 Rx famotidine 20 mg tablet 20 mg PO DAILY #30 tab 12/11/20 02/20/21 Rx pantoprazole 40 mg tablet,delayed 40 mg PO BID #60 tab 12/15/20 02/20/21 Rx release (Protonix) bupropion HCl 150 mg tablet,12 hr 150 mg PO BID #90 ea 01/23/21 02/20/21 Rx sustained-release trazodone 150 mg tablet 150 mg PO HS 02/13/21 02/20/21 History clonazepam 0.5 mg tablet 0.5 mg PO DAILY PRN 02/16/21 02/20/21 History metoprolol tartrate 25 mg tablet 25 mg PO BID #60 tab 02/16/21 02/20/21 Rx mirtazapine 30 mg tablet 30 mg PO DAILY 02/16/21 02/20/21 History clonazepam 1 mg tablet (Klonopin) 0.5 mg PO BID tab 02/20/21 02/20/21 History prednisone 10 mg tablet 10 mg PO .COMPLEX #30 tab 02/20/21 02/20/21 Rx Past Med/Surg History Medical History Chronic back pain Deep vein thrombosis Dizziness GERD (gastroesophageal reflux disease) Headache History of endometriosis Polydipsia Surgical History History of arthroscopy of knee History of colonoscopy (~2017) History of elbow surgery History of esophagogastroduodenoscopy (EGD) (~2017) History of hysterectomy with unilateral oophorectomy History of sleeve gastrectomy History of tubal ligation S/P laparoscopic cholecystectomy (~2018) Family History Sister Graves disease Other Diabetes Hypertension Denies family history of Ovarian cancer Prostate cancer Myocardial infarction Breast cancer Colorectal cancer Social History Smoking Status: Never smoker Second Hand Exposure: No ( A CHILD); Do You Dip or Chew Tobacco: No; Hx Alcohol Use: No Hx Substance Use: No Preferred Language: Irish Communication Ability: Effective Visual Impairment: No Limitations Inside Finisher Required: No Beliefs That Will Affect Care: Sikhism Sikhism Beliefs: ORTHODOX marital status: Current Living Situation: Spouse How many Children do You have: 2 Feels Safe at Home: Yes Childhood Exposure to Second-Hand Smoke: Yes caffeine: Yes Dental Care, Regularly: Yes Physical Activity Frequency: Daily Seatbelt Use: always Sunscreen Use: No Assistive Devices: Glasses Review of Systems Review of Systems: All systems reviewed and are unremarkable except as noted in HPI and below + palpitations, chest pressure and SOB. Denies fevers, chills, headache, nasal congestion, sore throat, cough,shortness of breath, palpitations, orthopnea, PND, abdominal pain, nausea, vomiting, diarrhea, constipation, dysuria, hematuria, frequency, back pain, joint pain or swelling, easy bruising or bleeding, skin lesions or rashes. Physical Exam Physical Exam: General: Resting comfortably in her hospital bed. She does not appear ill or toxic. NAD. HEENT: Head is AT/NC buccal mucosa is moist and pink Neck: No JVD. Negative hepatojugular reflex Cardiac: RRR without M/G/R Lungs: CTA without W/R/R Abdomen: Normoactive X4. Soft and nontender in all quadrants. Extremities: No peripheral clubbing cyanosis or edema Neuro: A&O X4 cranial nerves II through XII are grossly intact no focal neuro deficits Skin: No obvious skin lesions or rashes Psych: Appropriate affect pleasant and cooperative Results & Data Results & Data ([facility]) Vital Signs (Past 12 Hours) Vital Signs Temp Pulse Pulse Resp BP BP Pulse Ox 02/16/21 08:00 72 18 141/87 H 97 02/16/21 06:00 62 18 93 02/16/21 04:00 62 16 140/96 94 02/16/21 01:00 65 15 128/80 95 02/16/21 00:50 67 16 95 02/16/21 00:46 70 17 95 02/16/21 00:30 68 70 13 127/85 127/85 95 02/16/21 00:20 75 18 95 02/16/21 00:10 72 15 95 02/16/21 00:00 75 13 124/96 94 02/15/21 23:50 71 19 95 02/15/21 23:46 77 73 15 159/111 H 95 02/15/21 23:23 36.6 C 107 H 16 152/84 H 94 Laboratory Results 02/15/21 23:20 02/15/21 23:20 D-dimer elevated at 1340 TSH: 0.12 Covid: Negative Urinalysis: Negative Diagnostic Findings CXR: No acute cardiopulmonary process CT of the abdomen and pelvis and CTA of the chest: IMPRESSION: 1. There is no evidence of pulmonary embolus in the main, lobar, or segmental pulmonary arteries. 2. There are no acute infectious or inflammatory findings in the abdomen or pelvis. 3. There are numerous pulmonary nodules/granulomas are scattered throughout both lungs as well as mediastinal and hilar lymphadenopathy. This is consistent with reported history of sarcoidosis. 4. Left-sided nephrolithiasis. 5. Multinodular goiter is unchanged. 6. Additional findings as above. EKG: T wave inversion in the anterior septal leads (this is a new change compared to 2019). Code Status & VTE Plan VTE Prophylaxis Plan VTE Prophylaxis will be ordered: Yes Supervising Physician Co-Signing Physician Notes Attending note: I agree with the history, ROS, examination findings and assessment and plan by [place] FRIEND. Patient was discharged same day, see discharge summary for my input. PG Care Time/CCT Total # of Minutes Spent Total Time Spent with Patient: Total time spent is greater than 50% in coordination of care (as documented) at patient's floor/unit and/or counseling patient: Coding Level of Care Code None Diagnoses Atypical chest pain R07.89 Heart palpitations R00.2 Abnormal EKG R94.31 Hyperthyroidism E05.90 Elevated d-dimer R79.89 Anxiety and depression F41.9; F32.9 HTN (hypertension) I10 Hyperlipidemia E78.5
[2021-02-16] MEDS ORDERED: ATORVASTATIN 40 MG TAB PO SCH (09:45)
[2021-02-16 10:23] LABS: Chol HDL Ratio 4; Cholesterol 218 mg/dl (0-200); HDL Cholesterol 52 mg/dl; LDL Cholesterol Calculated 92 mg/dl; Triglycerides 369 mg/dl (0-150); VLDL Cholesterol 74 mg/dl
--- NOTE | 2021-02-16 11:15 | Cardiology Consultation ---
Date of Consultation February 16, 2021 Assessment & Plan (1) Atypical chest pain: Patient is a 55-year-old female with a past medical history of hyperthyroidism, previous DVT in 2014, GERD, and anxiety presenting to the hospital for the chief complaint of atypical chest pain and palpitations. Atypical Chest Pain -Due to no significant cardiac history and a significant history of acid reflux with hiatal hernia in addition to anxiety, negative troponin, stable right bundle branch block present in 2019, negative chest CTA, chest pain is unlikely to be cardiac in etiology. -Recommend stress echo at this time to rule out cardiac etiology of atypical chest pain. -Repeat troponin pending, if negative-->r/o ND Supervising Physician Co-Signing Physician Notes Pt seen and examined. Agree with Dr. Juarez's assessment and plan. In short, pt admitted with atypical chest pain, undetectable troponin, and no new ECG changes. Will proceed with a stress echocardiogram to rule out myocardial ischemia. History of Present Illness Reason for Consultation: Atypical chest pain Attending Physician: Rigoberto Duran, DO History of Present Illness Patient is a 55-year-old female with a past medical history of hyperthyroidism, previous DVT in 2014, GERD, and anxiety presenting to the hospital for the chief complaint of atypical chest pain and palpitations. Patient reports that shortly after dinner last night she had developed a fast heart rate and became aware of the beating in her chest. At that time she described the chest discomfort as dull and 2 out of 10 in the substernal area. She states that it may have radiated to her right arm but is much improved. Today she describes that her chest discomfort has migrated to the inferior aspect of her rib cage and bands the whole way across the bottom. Patient reports no history of cardiac events including A. fib, ND, or PE. Patient does report a DVT in 2014 that was subsequently treated with anticoagulation. Patient does have a significant history of hyperthyroidism with a thyroidectomy planned within the next couple of months. Currently labs in the ER show subclinical hyperthyroidism with low TSH levels and normal T3 and T4. There is also a significant history of GERD being treated with PPI and H2 paris with a moderate hiatal hernia found incidentally on CT in the ER. She did have a gastric sleeve placed a couple years ago. Currently there is a negative troponin with a repeat troponin pending. Negative CTA of chest, x-ray, and abdominal pelvic CT performed in ER. Past medical history: 1. Chronic back pain 2. DVT in left lower extremity in 2015 3. GERD 4. History of endometriosis Past surgical history: 1. History of arthroscopy of left knee 2. History of hysterectomy with unilateral oophorectomy with appendectomy 3. History of gastric sleeve 4. History of tubal ligation 5. History of laparoscopic cholecystectomy Family history -Patient has a sister with Graves' disease -Denies any primary relative history of ND Social history - with in room at time of examination -Non-smoker -Rarely drinks alcohol Allergies Allergy/AdvReac Type Severity Reaction Status Date / Time Iodinated Contrast Media Allergy Unknown hives Verified 02/15/21 23:46 latex Allergy Redness of Verified 02/15/21 23:46 Skin vaccine adjuvant system, Allergy ARM Verified 02/15/21 23:46 AS01B liposomal SWELLED UP [From Shingrix (PF)] varicella-zoster virus Allergy ARM Verified 02/15/21 23:46 glycoprotein E, recombinant SWELLED UP [From Shingrix (PF)] citalopram AdvReac Unknown headache Verified 02/15/21 23:46 Penicillins AdvReac Unknown mouth sores Verified 02/15/21 23:46 celexa Allergy Unknown Unknown Uncoded 02/15/21 23:46 Home Medications Medication Instructions Recorded Confirmed Type calcium carbonate 600 mg calcium 600 mg PO BID 08/12/18 02/16/21 History (1,500 mg) tablet (Calcium) cyanocobalamin (vitamin B-12) 1,000 mcg PO QAM 08/12/18 02/16/21 History 1,000 mcg tablet (Vitamin B-12) multivitamin 1 tab PO QAM 08/12/18 02/16/21 History cholecalciferol (vitamin D3) 25 1,000 unit PO DAILY 12/18/18 02/16/21 History mcg (1,000 unit) tablet (Vitamin D3) budesonide-formoterol HFA 160 2 puff INHALATION BID #10.2 g 01/07/20 02/16/21 Rx mcg-4.5 mcg/actuation aerosol inhaler (Symbicort) melatonin 10 mg capsule 10 mg PO HS 04/11/20 02/16/21 History omega 7-blt-qll-fish oil 1,000 mg 1 cap PO BID cap 04/11/20 02/16/21 History (120 mg-180 mg) capsule (Fish Oil) buspirone 30 mg tablet 30 mg PO BID #60 tab 04/24/20 02/16/21 Rx methocarbamol 750 mg tablet 750 mg PO TID PRN #30 tab 05/30/20 02/16/21 Rx clonazepam 1 mg tablet (Klonopin) 1 mg PO BID tab 12/07/20 02/16/21 History famotidine 20 mg tablet 20 mg PO DAILY #30 tab 12/11/20 02/16/21 Rx pantoprazole 40 mg tablet,delayed 40 mg PO BID #60 tab 12/15/20 02/16/21 Rx release (Protonix) methimazole 5 mg tablet 10 mg PO QAM #180 tab 01/10/21 02/16/21 Rx bupropion HCl 150 mg tablet,12 hr 150 mg PO BID #90 ea 01/23/21 02/16/21 Rx sustained-release nitrofurantoin 100 mg PO Q12H 7 Days #14 cap 02/13/21 02/16/21 Rx monohydrate/macrocrystals 100 mg capsule (Macrobid) trazodone 150 mg tablet 150 mg PO HS 02/13/21 02/16/21 History clonazepam 0.5 mg tablet 0.5 mg PO DAILY PRN 02/16/21 02/16/21 History mirtazapine 30 mg tablet 30 mg PO DAILY 02/16/21 02/16/21 History omeprazole 20 mg capsule,delayed 20 mg PO DAILY 02/16/21 02/16/21 History release Patient History Medical History Chronic back pain Deep vein thrombosis LLE around 2014 S/P ANTICOAGULATION [place] Dizziness GERD (gastroesophageal reflux disease) Headache History of endometriosis Polydipsia Surgical History History of arthroscopy of knee LEFT History of colonoscopy (~2017) History of elbow surgery LEFT History of esophagogastroduodenoscopy (EGD) (~2017) History of hysterectomy with unilateral oophorectomy W/APPENDECTOMY History of sleeve gastrectomy History of tubal ligation S/P laparoscopic cholecystectomy (~2018) Family History Sister Graves disease Other Diabetes Hypertension Denies family history of Ovarian cancer Prostate cancer Myocardial infarction Breast cancer Colorectal cancer Social History Smoking Status: Never smoker Second Hand Exposure: Yes ( A CHILD); Hx Alcohol Use: No Hx Substance Use: No Preferred Language: Portuguese Communication Ability: Effective Visual Impairment: No Limitations Interchange Agent Required: No Beliefs That Will Affect Care: Caodaism Caodaism Beliefs: EVANGELICAL Current Living Situation: Spouse Feels Safe at Home: Yes Assistive Devices: Glasses Review of Systems Review of Systems: All systems reviewed & are unremarkable except as noted in HPI & below Physical Exam Constitutional: well developed and well nourished; no acute distress Eyes: PERRL, conjunctivae normal, anicteric sclerae Neck: trachea midline Thyroid: + thyroid asymmetrical Respiratory: normal respiratory effort, lungs clear to auscultation Cardiovascular: Rate/Rhythm: regular rate and regular rhythm Heart Sounds: normal S1 and normal S2; no gallop, no murmur and no cardiac rub Palpation: normal PMI Vessels: no JVD and no carotid bruit Chest (Breasts): normal inspection/palpation of breasts Gastrointestinal (Abdomen): normal bowel sounds, soft, nontender, no hepatosplenomegaly Psychiatric: A+Ox3, euthymic affect Results & Data ([facility]) Vital Signs (Past 12 Hours) Vital Signs Temp Pulse Pulse Resp BP BP Pulse Ox 02/16/21 08:00 72 18 141/87 H 97 02/16/21 06:00 62 18 93 02/16/21 04:00 62 16 140/96 94 02/16/21 01:00 65 15 128/80 95 02/16/21 00:50 67 16 95 02/16/21 00:46 70 17 95 02/16/21 00:30 68 70 13 127/85 127/85 95 02/16/21 00:20 75 18 95 02/16/21 00:10 72 15 95 02/16/21 00:00 75 13 124/96 94 02/15/21 23:50 71 19 95 02/15/21 23:46 77 73 15 159/111 H 95 02/15/21 23:23 36.6 C 107 H 16 152/84 H 94 PG Care Time/CCT Total # of Minutes Spent Total Time Spent with Patient: Total time spent is greater than 50% in coordination of care (as documented) at patient's floor/unit and/or counseling patient: Coding Level of Care Code 95730 Office/OBS Consult Lvl 4 Diagnoses Atypical chest pain R07.89
--- NOTE | 2021-02-16 14:57 | XCELERA ---
[id number]
--- NOTE | 2021-02-16 15:41 | Billing Data ---
Date of Service February 16, 2021 Coding Level of Care Code OBSERV/HOSP SAME DATE LVL 3
--- NOTE | 2021-02-16 15:44 | Discharge Summary ---
Date of Service February 16, 2021 Admission HPI Per Admitting Provider Mrs. Cosme is a 55 y/o WF with a PMHx hyperthyroidism, mixed anxiety/depression, sarcoidosis with pulmonary involvement, diet-controlled HTN and HLD and asthma. She presented to the ED complaining of cardiac awareness. Was in her usual state of health until yesterday morning when she was aware of her heart beating. Seem to be ongoing and constant throughout most of the day. Progressive in its severity. Into the evening, she felt that her heart was racing and she was having associated chest pressure with an ache down her right arm. In addition, she had associated shortness of breath. Denied nausea or diaphoresis. Presented to the ED where she was found to be slightly tachycardic (110) but otherwise hemodynamically stable. Her lab data was unremarkable other than an elevated D-dimer at 1340. This led to a CTA that showed no evidence of PE. Pulmonary nodules consistent with sarcoidosis noted. Her troponin was negative. EKG did show T wave inversion in the anteroseptal leads which was a new finding compared to an EKG done in 2019. Otherwise, magnesium level was normal. Lipase was slightly elevated 748 without abdominal pain. Covid test was negative. Patient subsequently hospitalized for further evaluation and care. Further labs drawn. TSH noted to be low at 0.12. She does have known hyperthyroidism and takes Tapazole 10 mg every morning. She does follow with Dr. Benavides and is planning for a subtotal thyroidectomy within the upcoming months. Patient does not have an underlying history of known cardiac disease. She has never had a stress test and/or cardiac catheterization. She does not have a family history of premature coronary disease. She does not use tobacco. Principal Diagnosis 1. Cardiac awarenesslikely secondary to tachycardia and uncontrolled hyperthyroidism 2. Atypical chest painACS ruled out 3. Uncontrolled hyperthyroidism 4. Mild tachycardia Discharge Exam General: Resting comfortably in her hospital bed. She does not appear ill or toxic. NAD. HEENT: Head is AT/NC buccal mucosa is moist and pink Neck: No JVD. Negative hepatojugular reflex Cardiac: RRR without M/G/R Lungs: CTA without W/R/R Abdomen: Normoactive X4. Soft and nontender in all quadrants. Extremities: No peripheral clubbing cyanosis or edema Neuro: A&O X4 cranial nerves II through XII are grossly intact no focal neuro deficits Skin: No obvious skin lesions or rashes Psych: Appropriate affect pleasant and cooperative Discharge Data Allergies Allergy/AdvReac Type Severity Reaction Status Date / Time Iodinated Contrast Media Allergy Unknown hives Verified 02/20/21 10:26 latex Allergy Redness of Verified 02/20/21 10:26 Skin vaccine adjuvant system, Allergy ARM Verified 02/20/21 10:26 [id number] liposomal SWELLED UP [From Shingrix (PF)] varicella-zoster virus Allergy ARM Verified 02/20/21 10:26 glycoprotein E, recombinant SWELLED UP [From Shingrix (PF)] citalopram AdvReac Unknown headache Verified 02/20/21 10:26 Penicillins AdvReac Unknown mouth sores Verified 02/20/21 10:26 celexa Allergy Unknown Unknown Uncoded 02/20/21 10:26 Consultations 02/16/21 05:29 ED Decision to Admit Stat Procedures Performed Stress echocardiogram normal. Heart rate peak 75% percent predicted maximum. No exercise-induced chest pain. No EKG changes. Baseline echocardiogram notes normal LV function with mild MR. Ordered Studies 02/16/21 02:58 CXR: No acute cardiopulmonary process CT of the abdomen and pelvis and CTA of the chest: IMPRESSION: 1. There is no evidence of pulmonary embolus in the main, lobar, or segmental pulmonary arteries. 2. There are no acute infectious or inflammatory findings in the abdomen or pelvis. 3. There are numerous pulmonary nodules/granulomas are scattered throughout both lungs as well as mediastinal and hilar lymphadenopathy. This is consistent with reported history of sarcoidosis. 4. Left-sided nephrolithiasis. 5. Multinodular goiter is unchanged. 6. Additional findings as above. EKG: T wave inversion in the anterior septal leads (this is a new change compared to 2019). Hospital Course (1) Atypical chest pain: 55 y/o WF. ho hyperthyroidism, and diet controlled HTN/HLD- presented with cardiac awareness and associated atypical CP. - HR slightly tachycardic upon arrival (110) - troponin negative x2 - EKG IS SHOWING T-WAVE INVERSION IN ANT/SEP LEADS (when compared to EKG done 2019) - perhaps she is having issues with tachycardia from uncontrolled hyperthyroidism and subsequently had some rate related ischemia? - lovenox given upfront unti ACS ruled out - topical nitropaste for vasodilation - ASA and start BB (for cardiac protection but also tachycardia) and statin therapy - lipid panel for risk stratification - Cardiology consulted who performed a stress echocardiogram that was essentially within normal limits. Spoke to Dr. Romero directly who believes the EKG changes are likely related to the right bundle branch block noted. Again, no evidence of ACS. --I do believe her symptomatology was likely related to her uncontrolled hyperthyroidism causing palpitations and internal cardiac awareness. She is medically and hemodynamically stable for discharge to home. I have increased her Tapazole to twice daily (this was discussed with Dr. Benavides). In addition, she has been started on beta-blockade not only for heart rate control but also added blood pressure control (BP was 140s/90s during her entire hospitalization). (2) Heart palpitations: - ? issues with tachycardia from uncontrolled hyperthyroidism - HR 110 upon arrival. Currently 80-90's - add BB as outlined above (HR and BP can tolerate) (3) Abnormal EKG: - t wave inversion in the ant/sept leads when compared to EKG done in 2019--> see above as outlined (4) Hyperthyroidism: - increase tapazole to BID (message out to Dr. Benavides- pt's established endo, who is agreeable with this plan temporarily and will see patient in follow-up) - patient is for subtotal thyroidectomy in the upcoming months (5) Elevated d-dimer: - CTA done showing no evidence of PE (6) Anxiety and depression: - continue Wellbutrin, buspar, klonopin, trazadone, remeron as prior to hospitalization - this could be contributing to symptoms (7) HTN (hypertension): - "diet controlled" but running in the 140's systolic here - will tolerate addition of BB as outlined above (8) Hyperlipidemia: - continue fish oil Discharged home today with follow-up (with Dr. Benavides and PCP) Total Time Total Time Spent Total Time Spent (In Minutes): 90 minutes including time spent with patient, coordination of care, discussion with cardiology, discussion with attending physician (Dr. Duran) Discharge Plan Discharge Items Patient Disposition: Home - Self-Care Reason For Visit: ATYPICAL CHEST PAIN Discharge Diagnosis: 1. Atypical chest painACS ruled out 2. Uncontrolled hyperthyroidism 3. Cardiac awareness/palpitations/tachycardiasecondary to #2 Activity: Resume your previous activity Non-emergency contact: Primary Care Provider and Specialist Call non-emergency contact if: you have any medication questions Follow-up/Referrals: Clemente Benavides MD [Physician] - Alisson Zhang MD [Primary Care Provider] - Diet: Heart Healthy Addtl Attending Provider Instructions: -You presented to the hospital with symptoms of cardiac awareness and chest pres sure -Your EKG showed a nonspecific abnormality but you did not have a heart attack. Your cardiac enzymes were negative -I believe your symptoms were due to an elevated heart rate (related to your un controlled hyperthyroidism) -You had a stress echocardiogram that showed no evidence of ischemia or abnormality -You have been started on a beta-paris (for control of heart rate and blood pressure) -In addition, your Tapazole has been increased to twice a day. I did discuss this with Dr. Benavides who will see you in follow-up to discuss long-term recommendations -Follow-up with your PCP within 7 to 10 days. Notify him or come to the ED if you for dizzy or lightheaded Pending Studies at Discharge: No Medications and DC Order Prescriptions: New metoprolol tartrate 25 mg tablet 25 mg PO BID Qty: 60 RF: 0 Continued buspirone 30 mg tablet 30 mg PO BID Qty: 60 RF: 6 methocarbamol 750 mg tablet 750 mg PO TID PRN (Reason: muscle relaxer) Qty: 30 RF: 0 famotidine 20 mg tablet 20 mg PO DAILY Qty: 30 RF: 11 pantoprazole [Protonix] 40 mg tablet,delayed release (DR/EC) 40 mg PO BID Qty: 60 RF: 11 bupropion HCl 150 mg tablet sustained-release 12 hr 150 mg PO BID Qty: 90 RF: 3 trazodone 150 mg tablet 150 mg PO HS RF: 0 budesonide-formoterol [Symbicort] 160-4.5 mcg/actuation HFA aerosol inhaler 2 puff inhalation BID Qty: 10.2 RF: 3 omega [id number] oil [Fish Oil] 1,000 mg (120 mg-180 mg) capsule 1 cap PO BID RF: 0 cholecalciferol (vitamin D3) [Vitamin D3] 1,000 unit (25 mcg) Tablet 1,000 unit PO DAILY RF: 0 multivitamin Tablet 1 tab PO QAM RF: 0 cyanocobalamin (vitamin B-12) [Vitamin B-12] 1,000 mcg Tablet 1,000 mcg PO QAM RF: 0 calcium carbonate [Calcium 600] 600 mg calcium (1,500 mg) Tablet 600 mg PO BID RF: 0 clonazepam 0.5 mg tablet 0.5 mg PO DAILY PRN (Reason: Anxiety) RF: 0 mirtazapine 30 mg tablet 30 mg PO DAILY RF: 0 Discontinued methimazole 5 mg tablet 10 mg PO QAM Qty: 180 RF: 0 nitrofurantoin monohyd/m-cryst [Macrobid] 100 mg capsule 100 mg PO Q12H 7 Days Qty: 14 RF: 0 omeprazole 20 mg capsule,delayed release(DR/EC) 20 mg PO DAILY RF: 0 No Action prednisone 10 mg tablet 10 mg PO .COMPLEX Qty: 30 RF: 0 clonazepam [Klonopin] 1 mg tablet 0.5 mg PO BID RF: 0 Discharge Orders: Discharge Order (Routine); Ordered 02/16/21 Ordered By: Virginia Ross Admission Data Admit Date/Time: 02/16/21 09:32 Attending Provider: Rigoberto Duran Admit Provider: Rigoberto Duran Primary Care Provider: Alisson Zhang Other Providers: Wenceslao Barrera Other Interventions: Discharge Summary Assessment (RN) Last Done: 02/16/21 15:42 Supervising Physician Co-Signing Physician Notes Patient seen and examined on the day of discharge. I agree with the discharge summary by Virginia FRIEND. I have reviewed the chart including labs, imaging and plans for discharge. patient presented with chest pain, tachycardia, known hyperthyroidism on methimazole no evidence of ACS stress echo showed no signs of cardiac ischemia Virginia Ross d/w Dr. Benavides, endocrinology, who recommended increase methimazole to BID she has plans to have thyroid removed in near future - Chest pain, tachycardia: likely related to hyperthyroidism passed stress echo, no evidence of ACS discharge on metoprolol 25mg BID to help control heart rate - Hyperthyroidism: increase methimazole to BID follow up with Dr. Benavides, proceed with planned thyroidectomy Coding Level of Care Code OBSERV/HOSP SAME DATE LVL 3 Diagnoses Atypical chest pain R07.89 Heart palpitations R00.2 Abnormal EKG R94.31 Hyperthyroidism E05.90 Elevated d-dimer R79.89 Anxiety and depression F41.9; F32.9 HTN (hypertension) I10 Hyperlipidemia E78.5
--- NOTE | 2021-02-16 15:45 | Electrocardiogram Report ---
Test Reason : Blood Pressure : / mmHG Vent. Rate : 080 BPM Atrial Rate : 080 BPM P-R Int : 214 ms QRS Dur : 134 ms QT Int : 404 ms P-R-T Axes : 050 080 012 degrees QTc Int : 465 ms Sinus rhythm with 1st degree A-V block Right bundle branch block Abnormal ECG No previous ECGs available Confirmed by Jorge Romero ([id number]) on 02/16/2021 3:44:54 PM Referred By: REFERRED SELF Confirmed By:Jorge Romero
== END 2021-02-16 15:53 | disposition home or self-care (01) ==
LOC: EDINP 23:19 → ED 23:19 → EDINP 02-16 12:30

== ENCOUNTER 2021-03-11 13:21 | Inpatient (IN) ==
[2021-03-11] MEDS ORDERED: MoRPHine SULFATE 4 MG/ML 1 ML CARP\\VIAL IV STA ×2 (13:38→16:43)
[2021-03-11] MEDS ORDERED: ONDANSETRON INJ 2 MG/ML 2 ML VIAL IV STA (13:38)
[2021-03-11] MEDS ORDERED: SODIUM CHLORIDE 0.9% 500 ML IV STA (13:38)
--- NOTE | 2021-03-11 13:54 | Emergency Department Note ---
Impression & Plan Pulmonary embolism, Chest pain, pleuritic ED Provider Note NAME: FRAN ZAMBRANO AGE: 55 SEX: F : 1965 ARRIVES VIA: Walk-In INFORMANT: Patient, ED PROVIDER(S): Jorge Lopez DO CHIEF COMPLAINT: Chest pain HPI: The patient is a 55-year-old female who presented to the emergency department for an evaluation of chest pain. The patient states that she was in our facility recently for complaints of palpitations. She was felt to be having a problem with her thyroid. The patient states that she returns today because of posterior chest pain. She describes the pain in the posterior right chest wall. She is concerned she may have had a pulmonary embolism. She states that when she was in our facility recently she did have a CT of the chest but did not show any signs of pulmonary embolism. She denies having any lower extremity swelling or pain but does have a history of DVT. She does not currently take any blood thinners. She denies having any abdominal pain or back pain at this time she states she did have some episode of lower back pain a few days ago but that pain in her lower back is completely resolved. She did not take any medication prior to arrival. She denies having any nausea or vomiting. She denies having any headache or fever. ROS: See above HPI for pertinent positives & negatives. A total of 10 systems reviewed and were otherwise negative. PAST MEDICAL HISTORY: See Below PAST SURGICAL HISTORY: See Below FAMILY HISTORY: See Below SOCIAL HISTORY: See Below HOME MEDICATIONS: See Below ALLERGIES: See Below VITALS: See Below PHYSICAL EXAMINATION: GENERAL: The patient is awake and alert. The patient is very anxious appearing. EYES: The conjunctivae are clear. The pupils are round and reactive. EARS, NOSE, MOUTH AND THROAT: The nose is without any evidence of any deformity. NECK: The neck is nontender and supple. RESPIRATORY: Splinting respirations were noted. There is no tachypnea or conversational dyspnea. Lungs were clear. CARDIOVASCULAR: Regular rate and rhythm noted there no murmurs rubs or gallops normal S1 normal S2. GASTROINTESTINAL: The abdomen is soft. Abdomen is nontender. BACK: No midline tenderness or or step-off noted range of motion in flexion extension as well as rotation no signs of muscle spasm noted MUSCULOSKELETAL/EXTREMITIES: There is no evidence of gross deformity full range of motion is noted in the hips and shoulders. SKIN: There is no obvious evidence of any rash. There are no petechiae, pallor or cyanosis noted. NEUROLOGIC: Patient is awake alert and oriented x3 strength is symmetric patellar reflexes are 2+ bilaterally MEDICAL DECISION MAKING: The patient is a 55-year-old female who presented to the emergency department for an evaluation of chest pain. The patient was seen in our facility recently for similar complaints. At that time she had an extensive work-up including CT of the chest. The patient states she returns to the emergency department today because of recurrent and worsening symptoms. The patient appeared to be very uncomfortable. She was treated with IV fluids and IV pain medication in the emergency department. The patient had a CAT scan on her previous visit so I was trying to avoid repeating a CAT scan in last it was necessary. Dopplers did not show any signs of DVT. D-dimer however was elevated. This reason CT of the chest was obtained and appeared to be consistent with bilateral pulmonary embolism. The patient was started on IV heparin. I discussed the patient's condition with the on-call [facility] hospitalist. They have agreed to evaluate the patient in the emergency department for further management and disposition. The patient was treated with IV steroids IV Benadryl and IV Pepcid for preparation of the CAT scan given her history of IV dye allergy. Triage Nursing notes reviewed. Prior medical records reviewed Vital Signs: reviewed and remarkable for no significant abnormalities Differential diagnosis: Cardiac ischemia, aortic dissection, pulmonary embolism, pneumothorax, pneumonia, pericarditis, myocarditis, esophageal rupture, GERD, cholecystitis, pancreatitis, musculoskeletal, as well as other pathologies. ER treatment provided: See below Diagnostics interpreted by me: ECG: EKG was obtained in the emergency department. My interpretation is sinus rhythm at 76 bpm. Right bundle branch block pattern was noted. First-degree AV block was noted. This was compared to a tracing from February 152020. No changes were noted. Cardiac Monitoring: An order was placed for continuous cardiac monitoring. The monitor shows a rate of 67 bpm with sinus rhythm. Laboratory studies: As stated above and show below. Imaging studies: See below Consultation(s): I discussed this case with Dr. Shea [facility] He will evaluate the patient in the emergency department for further management and disposition. ED COURSE: Procedures: none Critical Care: I have personally spent greater than 55 minutes of critical care time in the direct management of this patient. This includes bedside care, interpretation of diagnostic studies, and testing, discussion with consultants, patient, and family members, and other required patient management activities. This 55 minut es is in excess of all separately billable procedures. Past Med/Surg History Medical History Chronic back pain Deep vein thrombosis LLE around 2014 S/P ANTICOAGULATION [place] Dizziness GERD (gastroesophageal reflux disease) Headache History of endometriosis Polydipsia Surgical History History of arthroscopy of knee LEFT History of colonoscopy (~2018) History of elbow surgery LEFT History of esophagogastroduodenoscopy (EGD) (~2018) History of hysterectomy with unilateral oophorectomy W/APPENDECTOMY History of sleeve gastrectomy History of tubal ligation S/P laparoscopic cholecystectomy (~2018) Family History Sister Graves disease Other Diabetes Hypertension Denies family history of Ovarian cancer Prostate cancer Myocardial infarction Breast cancer Colorectal cancer Social History Smoking Status: Never smoker Second Hand Exposure: No ( A CHILD); Hx Alcohol Use: No Hx Substance Use: No Preferred Language: Icelandic Communication Ability: Effective Visual Impairment: No Limitations Computer Assembler Required: No Beliefs That Will Affect Care: Restoration Restoration Beliefs: DRUZE marital status: Current Living Situation: Spouse How many Children do You have: 2 Feels Safe at Home: Yes Childhood Exposure to Second-Hand Smoke: Yes caffeine: Yes Dental Care, Regularly: Yes Physical Activity Frequency: Daily Seatbelt Use: always Sunscreen Use: No Assistive Devices: Glasses Allergies Allergies Allergy/AdvReac Type Severity Reaction Status Date / Time Iodinated Contrast Media Allergy Intermediate hives Verified 03/11/21 15:42 vaccine adjuvant system, Allergy Intermediate ARM Verified 03/11/21 15:42 [id number] liposomal SWELLED UP [From Shingrix (PF)] varicella-zoster virus Allergy Intermediate ARM Verified 03/11/21 15:42 glycoprotein E, recombinant SWELLED UP [From Shingrix (PF)] latex Allergy Mild Redness of Verified 03/11/21 15:42 Skin citalopram AdvReac Mild headache Verified 03/11/21 15:42 Penicillins AdvReac Mild mouth sores Verified 03/11/21 15:42 Home Meds Home Medications Medication Instructions Recorded Confirmed calcium carbonate 600 mg calcium 600 mg PO BID 08/12/18 03/11/21 (1,500 mg) tablet (Calcium) cyanocobalamin (vitamin B-12) 1,000 mcg PO QAM 08/12/18 03/11/21 1,000 mcg tablet (Vitamin B-12) multivitamin 1 tab PO QAM 08/12/18 03/11/21 cholecalciferol (vitamin D3) 25 1,000 unit PO DAILY 12/18/18 03/11/21 mcg (1,000 unit) tablet (Vitamin D3) omega 3-axz-ujb-fish oil 1,000 mg 1 cap PO BID cap 04/11/20 03/11/21 (120 mg-180 mg) capsule (Fish Oil) trazodone 150 mg tablet 150 mg PO HS 02/13/21 03/11/21 clonazepam 0.5 mg tablet 0.5 mg PO DAILY PRN 02/16/21 03/11/21 mirtazapine 30 mg tablet 30 mg PO DAILY 02/16/21 03/11/21 clonazepam 1 mg tablet (Klonopin) 0.5 mg PO BID tab 02/20/21 03/11/21 famotidine 20 mg tablet 20 mg PO HS 03/11/21 03/11/21 methocarbamol 750 mg tablet 750 mg PO TID PRN 03/11/21 03/11/21 Previous Rx's Medication Instructions Recorded budesonide-formoterol HFA 160 2 puff INHALATION BID #10.2 g 01/07/20 mcg-4.5 mcg/actuation aerosol inhaler (Symbicort) buspirone 30 mg tablet 30 mg PO BID #60 tab 04/24/20 pantoprazole 40 mg tablet,delayed 40 mg PO BID #60 tab 12/15/20 release (Protonix) bupropion HCl 150 mg tablet,12 hr 150 mg PO BID #90 ea 01/23/21 sustained-release metoprolol tartrate 25 mg tablet 25 mg PO BID #60 tab 03/09/21 Results & Data (ED) Vital Signs Vital Signs - 24 hr 03/11/21 13:26 03/11/21 13:38 03/11/21 14:15 Temperature 37.1 C Temperature Source Oral Pulse Rate 75 71 Pulse Rate from SpO2 Sensor 71 Respiratory Rate 20 20 Blood Pressure 149/83 H 116/66 Blood Pressure Mean 105 82 Pulse Oximetry 94 96 95 Oxygen Delivery Method Room Air Room Air Room Air Oxygen Flow Rate Sepsis Recent Fever Within 48 Hours No Sepsis New/Unexplained Change in Mental Status No Sepsis Action Taken by Nursing No Action Required 03/11/21 14:17 03/11/21 14:30 03/11/21 14:45 Temperature Temperature Source Pulse Rate 70 69 Pulse Rate from SpO2 Sensor 74 Respiratory Rate 18 16 Blood Pressure 115/53 L 100/72 Blood Pressure Mean 73 81 Pulse Oximetry 91 Oxygen Delivery Method Room Air Room Air Oxygen Flow Rate 97 Sepsis Recent Fever Within 48 Hours Sepsis New/Unexplained Change in Mental Status Sepsis Action Taken by Nursing 03/11/21 15:00 03/11/21 15:15 03/11/21 15:30 Temperature Temperature Source Pulse Rate 68 69 66 Pulse Rate from SpO2 Sensor 67 68 63 Respiratory Rate 19 20 18 Blood Pressure 102/79 107/60 Blood Pressure Mean 86 75 Pulse Oximetry 92 92 92 Oxygen Delivery Method Room Air Room Air Room Air Oxygen Flow Rate Sepsis Recent Fever Within 48 Hours Sepsis New/Unexplained Change in Mental Status Sepsis Action Taken by Nursing 03/11/21 16:09 03/11/21 16:15 03/11/21 16:30 Temperature Temperature Source Pulse Rate 65 76 Pulse Rate from SpO2 Sensor 66 Respiratory Rate 14 Blood Pressure 116/56 L 115/74 Blood Pressure Mean 76 87 Pulse Oximetry 94 92 94 Oxygen Delivery Method Room Air Room Air Room Air Oxygen Flow Rate Sepsis Recent Fever Within 48 Hours Sepsis New/Unexplained Change in Mental Status Sepsis Action Taken by Nursing 03/11/21 16:45 03/11/21 17:00 03/11/21 17:15 Temperature Temperature Source Pulse Rate 66 67 72 Pulse Rate from SpO2 Sensor 66 66 71 Respiratory Rate 23 20 19 Blood Pressure Blood Pressure Mean Pulse Oximetry 94 93 93 Oxygen Delivery Method Oxygen Flow Rate Sepsis Recent Fever Within 48 Hours Sepsis New/Unexplained Change in Mental Status Sepsis Action Taken by Nursing 03/11/21 17:30 03/11/21 17:45 03/11/21 18:00 Temperature Temperature Source Pulse Rate 73 67 73 Pulse Rate from SpO2 Sensor 74 67 74 Respiratory Rate 17 20 18 Blood Pressure 121/71 118/75 Blood Pressure Mean 87 89 Pulse Oximetry 93 91 94 Oxygen Delivery Method Room Air Room Air Oxygen Flow Rate Sepsis Recent Fever Within 48 Hours Sepsis New/Unexplained Change in Mental Status Sepsis Action Taken by Nursing 03/11/21 18:15 Temperature Temperature Source Pulse Rate 67 Pulse Rate from SpO2 Sensor 67 Respiratory Rate 15 Blood Pressure Blood Pressure Mean Pulse Oximetry 92 Oxygen Delivery Method Room Air Oxygen Flow Rate Sepsis Recent Fever Within 48 Hours Sepsis New/Unexplained Change in Mental Status Sepsis Action Taken by Longterm Medications Current Medication List: was personally reviewed by me Laboratory Data Attestation: I reviewed the patient's lab results. Result diagrams: 03/11/21 13:48 03/11/21 13:48 Lab Results 03/11/21 03/11/21 03/11/21 Range/Units 13:48 13:48 13:48 WBC 8.28 (4.8-10.8) K/uL RBC 4.65 (4.2-5.4) M/uL Hgb 14.7 (12.0-16.0) g/dL Hct 43.2 (37-47) % MCV 92.9 (80-100) fL MCH 31.6 (25-34) pg MCHC 34.0 (32-36) g/dL RDW Std Deviation 46.6 H (36.4-46.3) fL RDW Coeff of Winsome 13.7 (11.5-14.5) % Plt Count 188 (130-400) K/uL MPV 10.8 H (7.4-10.4) fL Immature Gran % (Auto) 0.1 % Neut % (Auto) 73.2 % Lymph % (Auto) 13.4 % Rabun % (Auto) 11.4 % Eos % (Auto) 1.7 % Baso % (Auto) 0.2 % Neut # (Auto) 6.06 (1.4-6.5) K/uL Lymph # (Auto) 1.11 L (1.2-3.4) K/uL Rabun # (Auto) 0.94 H (0.11-0.59) K/uL Eos # (Auto) 0.14 (0-0.5) K/uL Baso # (Auto) 0.02 (0-0.2) K/uL Immature Gran # (Auto) 0.01 (0.00-0.02) K/uL PT 10.1 (9.0-12.0) Seconds INR 1.0 (0.9-1.1) APTT 24.5 (21.0-31.0) Seconds PTT Ratio 0.9 D-Dimer 1810 H* (0-500) ug/L FEU Sodium 138 (136-145) mmol/L Potassium 3.9 (3.5-5.1) mmol/L Chloride 103 (98-107) mmol/L Carbon Dioxide 27 (21-32) mmol/L Anion Gap 9.0 (3-11) BUN 25 H (7-18) mg/dl Creatinine 1.00 (0.6-1.2) mg/dl Est Cr Clr Drug Dosing 66.7 ml/min Est GFR ( Amer) 72.9 ml/min Est GFR (Non-Af Amer) 62.9 ml/min BUN/Creatinine Ratio 24.5 H (10-20) Glucose 99 (70-99) mg/dl Calcium 9.6 (8.5-10.1) mg/dl Total Bilirubin 0.6 (0.2-1) mg/dl AST 21 (15-37) U/L ALT 72 (12-78) U/L Alkaline Phosphatase 100 (45-117) U/L Troponin I < 0.015 (0-0.045) ng/ml NT-Pro-B Natriuret Pep 73 (0-900) pg/ml Total Protein 7.5 (6.4-8.2) gm/dl Albumin 3.4 (3.4-5.0) gm/dl Globulin 4.1 H (2.5-4.0) gm/dl Albumin/Globulin Ratio 0.8 L (0.9-2) Lipase 418 H (73-393) U/L Urine Color Urine Appearance (Clear) Urine pH (4.5-7.5) Ur Specific [place] (1.000-1.030) Urine Protein (Negative) Urine Glucose (UA) (Negative) Urine Ketones (Negative) Urine Blood (Negative) Urine Nitrite (Negative) Urine Bilirubin (Negative) Urine Urobilinogen (Negative) Ur Leukocyte Esterase (Negative) Urine WBC (Auto) (0-5) /hpf Urine RBC (Auto) (0-4) /hpf U Hyaline Cast (Auto) (0-5) /lpf U Epithel Cells (Auto) (0-5) /lpf Urine Bacteria (Auto) (Negative) COVID-19 Eval Order SARS-CoV-2 (PCR) (Negative) 03/11/21 03/11/21 03/11/21 Range/Units 14:20 14:20 14:20 WBC (4.8-10.8) K/uL RBC (4.2-5.4) M/uL Hgb (12.0-16.0) g/dL Hct (37-47) % MCV (80-100) fL MCH (25-34) pg MCHC (32-36) g/dL RDW Std Deviation (36.4-46.3) fL RDW Coeff of Winsome (11.5-14.5) % Plt Count (130-400) K/uL MPV (7.4-10.4) fL Immature Gran % (Auto) % Neut % (Auto) % Lymph % (Auto) % Rabun % (Auto) % Eos % (Auto) % Baso % (Auto) % Neut # (Auto) (1.4-6.5) K/uL Lymph # (Auto) (1.2-3.4) K/uL Rabun # (Auto) (0.11-0.59) K/uL Eos # (Auto) (0-0.5) K/uL Baso # (Auto) (0-0.2) K/uL Immature Gran # (Auto) (0.00-0.02) K/uL PT (9.0-12.0) Seconds INR (0.9-1.1) APTT (21.0-31.0) Seconds PTT Ratio D-Dimer (0-500) ug/L FEU Sodium (136-145) mmol/L Potassium (3.5-5.1) mmol/L Chloride (98-107) mmol/L Carbon Dioxide (21-32) mmol/L Anion Gap (3-11) BUN (7-18) mg/dl Creatinine (0.6-1.2) mg/dl Est Cr Clr Drug Dosing ml/min Est GFR ( Amer) ml/min Est GFR (Non-Af Amer) ml/min BUN/Creatinine Ratio (10-20) Glucose (70-99) mg/dl Calcium (8.5-10.1) mg/dl Total Bilirubin (0.2-1) mg/dl AST (15-37) U/L ALT (12-78) U/L Alkaline Phosphatase (45-117) U/L Troponin I (0-0.045) ng/ml NT-Pro-B Natriuret Pep (0-900) pg/ml Total Protein (6.4-8.2) gm/dl Albumin (3.4-5.0) gm/dl Globulin (2.5-4.0) gm/dl Albumin/Globulin Ratio (0.9-2) Lipase (73-393) U/L Urine Color Yellow Urine Appearance Clear (Clear) Urine pH 7.0 (4.5-7.5) Ur Specific [place] 1.017 (1.000-1.030) Urine Protein Negative (Negative) Urine Glucose (UA) Negative (Negative) Urine Ketones Negative (Negative) Urine Blood Negative (Negative) Urine Nitrite Negative (Negative) Urine Bilirubin Negative (Negative) Urine Urobilinogen Negative (Negative) Ur Leukocyte Esterase Trace H (Negative) Urine WBC (Auto) 5-10 H (0-5) /hpf Urine RBC (Auto) 0-4 (0-4) /hpf U Hyaline Cast (Auto) 0 (0-5) /lpf U Epithel Cells (Auto) 10-20 H (0-5) /lpf Urine Bacteria (Auto) Negative (Negative) COVID-19 Eval Order Covid19 at [facility] SARS-CoV-2 (PCR) NEGATIVE (Negative) Administered Medications Heparin Sodium/Dextrose (Heparin Sodium/Dextrose) 25,000 units in 500 mls @ 24 mls/hr IV .[id number] FOR[facility]LY [facility], 1928–1983; Protocol Stop: 04/10/21 18:29 Last Admin: 03/11/21 18:28 Dose: 1,200 units/hr, 24 mls/hr Documented by: [id number] Cosigned by: [id number] Discontinued Medications Diphenhydramine HCl (Diphenhydramine 50 Mg/Ml Vial) 25 mg IV NOW STA Stop: 03/11/21 16:44 Last Admin: 03/11/21 17:05 Dose: 25 mg Documented by: [id number] Heparin Sodium (Porcine) (Heparin Sod (Porcine) 1000 Unit/Ml) 1 units IV NOW ONE Stop: 03/11/21 18:26 Last Admin: 03/11/21 18:29 Dose: 5,000 units Documented by: [id number] Cosigned by: [id number] Heparin Sodium/Dextrose (Heparin Iv Adult Wt-Based Standard With Bolus Protocol) 1 ea IV NOW STA; Protocol Stop: 03/11/21 18:10 Last Admin: 03/11/21 18:29 Dose: Not Given Documented by: [id number] Sodium Chloride (Nss) 500 mls @ 999 mls/hr IV .Q31M STA Stop: 03/11/21 14:08 Last Infusion: 03/11/21 15:41 Dose: 0 mls/hr Documented by: [id number] Admin: 03/11/21 14:51 Dose: 999 mls/hr Documented by: [id number] Famotidine (Pepcid 20mg Iv Push) 20 mg in 5 mls @ 2.5 mls/min IV NOW STA Stop: 03/11/21 16:44 Last Admin: 03/11/21 17:08 Dose: 2.5 mls/min Documented by: [id number] Ioversol (Optiray 320 125ml) 120 ml IV ONCE ONE Stop: 03/11/21 17:27 Last Admin: 03/11/21 17:28 Dose: 120 ml Documented by: [id number] Methylprednisolone (Methylprednisolone 125 Mg/2 Ml Vial) 125 mg IV NOW STA Stop: 03/11/21 16:44 Last Admin: 03/11/21 17:07 Dose: 125 mg Documented by: [id number] Morphine Sulfate (Morphine Sulfate 4 Mg/Ml 1 Ml Carp\Vial) 4 mg IV NOW STA Stop: 03/11/21 13:39 Last Admin: 03/11/21 14:51 Dose: 4 mg Documented by: [id number] Morphine Sulfate (Morphine Sulfate 4 Mg/Ml 1 Ml Carp\Vial) 4 mg IV NOW STA Stop: 03/11/21 16:44 Last Admin: 03/11/21 17:03 Dose: 4 mg Documented by: [id number] Ondansetron HCl (Ondansetron Inj 2 Mg/Ml 2 Ml Vial) 4 mg IV NOW STA Stop: 03/11/21 13:39 Last Admin: 03/11/21 14:51 Dose: 4 mg Documented by: [id number] Imaging Data Radiologist's Impression: Chest X-Ray 03/11/21 13:38 XR chest 1V portable CLINICAL HISTORY: Chest Pain COMPARISON STUDY: Chest radiograph and chest CT February 16, 2021. FINDINGS: Lung volumes are diminished. There is no pneumothorax or pleural effusion. Bibasilar opacities are predominantly linear configuration. There is no lobar consolidation. No evidence for pulmonary edema. Cardiomediastinal silhouette is stable. IMPRESSION: Low lung volumes with bibasilar opacities that likely reflect atele ctasis. An infectious process could appear similar. ACT 112: Negative or not required by law. Electronically signed by: Luis Enrique Mark M.D. 03/11/2021 2:07 PM Venous Doppler Study 03/11/21 13:42 BILATERAL LOWER EXTREMITY VENOUS DOPPLER CLINICAL HISTORY: Chest pain. Lower extremity swelling. COMPARISON STUDY: Left lower extremity venous Doppler ultrasound December 18, 2018. TECHNIQUE: Sonography of the deep venous system of the bilateral lower extremities was performed. Compression and augmentation were evaluated. FINDINGS: The bilateral common femoral, superficial femoral and popliteal veins were compressible. Augmentation was normal. Flow was shown within the deep calf vessels. IMPRESSION: No evidence of deep venous thrombus within the bilateral lower extremities. ACT 112: Negative or not required by law. Electronically signed by: Luis Enrique Mark M.D. 03/11/2021 4:26 PM Chest CTA 03/11/21 16:43 CT ANGIOGRAPHY OF THE CHEST, PULMONARY EMBOLUS PROTOCOL CLINICAL HISTORY: Atypical chest pain. History of sarcoidosis. COMPARISON STUDY: Chest CT February 16, 2021. Chest radiograph performed earlier today. TECHNIQUE: Patient was premedicated for IV dye allergy as per ED protocol. Following IV administration of 120 mL of Optiray, helical axial images of the chest were obtained utilizing the pulmonary embolus protocol. Maximal intensity projections and sagittal and coronal reformats were viewed on an independent 3D workstation. IV contrast was administered without complication. Automated exposure control was utilized for the study. A dose lowering technique was utilized adhering to the principles of ALARA. CT DOSE: 404.08 mGy.cm FINDINGS: There has been interval development of multiple right-sided segmental no lobar pulmonary emboli since CT of February 16, 2021. These include an embolus within a segmental branch of the posterior basal segment of the right lower lobe with associated groundglass opacity suggestive of a pulmonary infarct. There is a trace right pleural effusion. Small right-sided pulmonary emboli are also noted. There is a embolus within the lobar branch to the right upper lobe. There are several suspected small left lower lobe pulmonary embolus. Postoperative findings within the stomach are partially imaged. There is a probable hiatal hernia. Mild dilatation of the ascending aorta, measuring 3.9 cm there is no thoracic aortic dissection. There is no pericardial effusion. Lungs are suboptimally assessed due to respiratory motion. Numerous pulmonary nodules are similar to prior exam. These may be related to sarcoidosis. Mildly enlarged mediastinal and bilateral hilar lymph nodes are unchanged. There is no significant abnormalities within visualized portions of the upper abdomen. IMPRESSION: 1. Interval development of several lobar and segmental pulmonary emboli, right greater than left, since CT of February 16, 2021. Associated right lower lobe infarct with a trace right pleural effusion. 2. Numerous pulmonary nodules and mildly enlarged mediastinal and bilateral hilar lymph nodes which are similar to prior exam. These are consistent with the provided history of sarcoidosis. ACT 112: Negative or not required by law. Electronically signed by: Luis Enrique Mark M.D. 03/11/2021 5:45 PM Discharge Plan Visit Data Chief Complaint: Chest Pain Stated Complaint: CHEST PAIN ED Provider: Jorge Lopez Discharge Problem: Pulmonary embolism, Chest pain, pleuritic Patient Disposition: Being Evaluated by Hospitalist Forms Stand Alone Forms: [facility] Prescriptions Prescriptions: No Action buspirone 30 mg tablet 30 mg PO BID Qty: 60 RF: 6 pantoprazole [Protonix] 40 mg tablet,delayed release (DR/EC) 40 mg PO BID Qty: 60 RF: 11 bupropion HCl 150 mg tablet sustained-release 12 hr 150 mg PO BID Qty: 90 RF: 3 metoprolol tartrate 25 mg tablet 25 mg PO BID Qty: 60 RF: 11 trazodone 150 mg tablet 150 mg PO HS RF: 0 budesonide-formoterol [Symbicort] 160-4.5 mcg/actuation HFA aerosol inhaler 2 puff inhalation BID Qty: 10.2 RF: 3 omega 9-jzd-sai-fish oil [Fish Oil] 1,000 mg (120 mg-180 mg) capsule 1 cap PO BID RF: 0 clonazepam [Klonopin] 1 mg tablet 0.5 mg PO BID RF: 0 cholecalciferol (vitamin D3) [Vitamin D3] 1,000 unit (25 mcg) Tablet 1,000 unit PO DAILY RF: 0 multivitamin Tablet 1 tab PO QAM RF: 0 cyanocobalamin (vitamin B-12) [Vitamin B-12] 1,000 mcg Tablet 1,000 mcg PO QAM RF: 0 calcium carbonate [Calcium 600] 600 mg calcium (1,500 mg) Tablet 600 mg PO BID RF: 0 clonazepam 0.5 mg tablet 0.5 mg PO DAILY PRN (Reason: Anxiety) RF: 0 mirtazapine 30 mg tablet 30 mg PO DAILY RF: 0 famotidine 20 mg tablet 20 mg PO HS RF: 0 methocarbamol 750 mg tablet 750 mg PO TID PRN (Reason: MUSCLE SPASMS) RF: 0 Referrals Referrals: Alisson Zhang MD [Primary Care Provider] -
--- NOTE | 2021-03-11 14:08 | XRay Report ---
XR chest 1V portable CLINICAL HISTORY: Chest Pain COMPARISON STUDY: Chest radiograph and chest CT February 16, 2021. FINDINGS: Lung volumes are diminished. There is no pneumothorax or pleural effusion. Bibasilar opacit ies are predominantly linear configuration. There is no lobar consolidation. No evidence for pulmonar y edema. Cardiomediastinal silhouette is stable. IMPRESSION: Low lung volumes with bibasilar opacities that likely reflect atelectasis. An infectious process could appear similar. ACT 112: Negative or not required by law. Electronically signed by: Luis Enrique Mark M.D. 03/11/2021 2:07 PM
[2021-03-11 14:10] LABS: Basophils # (auto) 0.02 K/uL (0-0.2); Basophils % (auto) 0.2 %; Eosinophils # (auto) 0.14 K/uL (0-0.5); Eosinophils % (auto) 1.7 %; Hematocrit (blood only) 43.2 % (37-47); Hemoglobin 14.7 g/dL (12.0-16.0); Immature Granulocytes # (auto) 0.01 K/uL (0.00-0.02); Immature Granulocytes % (auto) 0.1 %; Lymphocytes # (auto) 1.11 K/uL (1.2-3.4); Lymphocytes % (auto) 13.4 %; Mean Corpuscular Hemoglobin 31.6 pg (25-34); Mean Corpuscular Volume 92.9 fL (80-100); Mean Platelet Volume 10.8 fL (7.4-10.4); Monocytes # (auto) 0.94 K/uL (0.11-0.59); Monocytes % (auto) 11.4 %; Neutrophils # (auto) 6.06 K/uL (1.4-6.5); Neutrophils % (auto) 73.2 %; Platelet Count 188 K/uL (130-400); RDW Coefficient of Variation 13.7 % (11.5-14.5); RDW Standard Deviation 46.6 fL (36.4-46.3); Red Blood Count 4.65 M/uL (4.2-5.4); White Blood Count 8.28 K/uL (4.8-10.8)
[2021-03-11 14:15] LABS: Partial Thromboplastin Ratio 0.9; Partial Thromboplastin Time 24.5 Seconds (21.0-31.0); Prothrombin Time 10.1 Seconds (9.0-12.0)
[2021-03-11 14:19] LABS: D Dimer 1810 ug/L FEU (0-500)
[2021-03-11 14:27] LABS: Alanine Aminotransferase 72 U/L (12-78); Albumin Level 3.4 gm/dl (3.4-5.0); Aspartate Aminotransferase 21 U/L (15-37); BUN Creatinine Ratio 24.5 (10-20); Blood Urea Nitrogen 25 mg/dl (7-18); Calcium 9.6 mg/dl (8.5-10.1); Carbon Dioxide 27 mmol/L (21-32); Chloride 103 mmol/L (98-107); Creatinine Clr Calc Pharmacy 66.7 ml/min; Est GFR (African American) 72.9 ml/min; Est GFR (Non-African American) 62.9 ml/min; Glucose 99 mg/dl (70-99); Lipase 418 U/L (73-393); Potassium 3.9 mmol/L (3.5-5.1); Sodium 138 mmol/L (136-145)
[2021-03-11 14:32] LABS: Albumin Globulin Ratio 0.8 (0.9-2); Alkaline Phosphatase 100 U/L (45-117); Bilirubin,Total 0.6 mg/dl (0.2-1); Globulin 4.1 gm/dl (2.5-4.0); Total Protein 7.5 gm/dl (6.4-8.2); Troponin I < 0.015 ng/ml (0-0.045)
[2021-03-11 14:45] LABS: Appearance Urine Clear (Clear); Bacteria Urine Automated Negative (Negative); Bilirubin Urine Negative (Negative); Blood Urine Negative (Negative); Cast Urine Automated 0 /lpf (0-5); Color Urine Yellow; Glucose Urine UA Negative (Negative); Ketones Urine Negative (Negative); Leukocyte Esterase Urine Trace (Negative); Nitrite Urine Negative (Negative); Protein Urine Negative (Negative); RBC Urine Automated 0-4 /hpf (0-4); Specific Gravity Urine 1.017 (1.000-1.030); Urobilinogen Urine Negative (Negative)
--- NOTE | 2021-03-11 16:28 | Ultrasound Report ---
BILATERAL LOWER EXTREMITY VENOUS DOPPLER CLINICAL HISTORY: Chest pain. Lower extremity swelling. COMPARISON STUDY: Left lower extremity venous Doppler ultrasound December 18, 2018. TECHNIQUE: Sonography of the deep venous system of the bilateral lower extremities was performed. Co mpression and augmentation were evaluated. FINDINGS: The bilateral common femoral, superficial femoral and popliteal veins were compressible. A ugmentation was normal. Flow was shown within the deep calf vessels. IMPRESSION: No evidence of deep venous thrombus within the bilateral lower extremities. ACT 112: Negative or not required by law. Electronically signed by: Luis Enrique Mark M.D. 03/11/2021 4:26 PM
[2021-03-11] MEDS ORDERED: diphenhydrAMINE 50 MG/ML VIAL IV STA (16:43)
[2021-03-11] MEDS ORDERED: methylPREDNISolone 125 MG/2 ML VIAL IV STA (16:43)
[2021-03-11] MEDS ORDERED: FAMOTIDINE 20MG IV PUSH 20 MG/5 ML SYR IV STA (16:43)
[2021-03-11] MEDS ORDERED: OPTIRAY 320 125ml IV ONE (17:26)
--- NOTE | 2021-03-11 17:46 | CT Scan Report ---
CT ANGIOGRAPHY OF THE CHEST, PULMONARY EMBOLUS PROTOCOL CLINICAL HISTORY: Atypical chest pain. History of sarcoidosis. COMPARISON STUDY: Chest CT February 16, 2021. Chest radiograph performed earlier today. TECHNIQUE: Patient was premedicated for IV dye allergy as per ED protocol. Following IV administratio n of 120 mL of Optiray, helical axial images of the chest were obtained utilizing the pulmonary embol us protocol. Maximal intensity projections and sagittal and coronal reformats were viewed on an [employer] 3D workstation. IV contrast was administered without complication. Automated exposure contr ol was utilized for the study. A dose lowering technique was utilized adhering to the principles of ALARA. CT DOSE: 404.08 mGy.cm FINDINGS: There has been interval development of multiple right-sided segmental no lobar pulmonary e mboli since CT of February 16, 2021. These include an embolus within a segmental branch of the posteri or basal segment of the right lower lobe with associated groundglass opacity suggestive of a pulmonar y infarct. There is a trace right pleural effusion. Small right-sided pulmonary emboli are also noted . There is a embolus within the lobar branch to the right upper lobe. There are several suspected sma ll left lower lobe pulmonary embolus. Postoperative findings within the stomach are partially imaged. There is a probable hiatal hernia. Mild dilatation of the ascending aorta, measuring 3.9 cm there is no thoracic aortic dissection. There is no pericardial effusion. Lungs are suboptimally assessed due to respiratory motion. Numerous pulmonary nodules are similar to prior exam. These may be related to sarcoidosis. Mildly enlarged mediastinal and bilateral hilar lymph nodes are unchanged. There is no significant abnormalities within visualized portions of the upper abdomen. IMPRESSION: 1. Interval development of several lobar and segmental pulmonary emboli, right greater than left, sin ce CT of February 16, 2021. Associated right lower lobe infarct with a trace right pleural effusion. 2. Numerous pulmonary nodules and mildly enlarged mediastinal and bilateral hilar lymph nodes which a re similar to prior exam. These are consistent with the provided history of sarcoidosis. ACT 112: Negative or not required by law. Electronically signed by: Luis Enrique Mark M.D. 03/11/2021 5:45 PM
[2021-03-11] MEDS ORDERED: Heparin IV Adult Wt-Based Standard WITH Bolus Protocol IV STA (18:09)
[2021-03-11] MEDS ORDERED: HEPARIN SOD (PORCINE) 1000 UNIT/ML IV ONE (18:25)
[2021-03-11 18:26] LABS: NT Pro B Type Natriuretic Pept 73 pg/ml (0-900)
[2021-03-11] MEDS: HEPARIN SODIUM/DEXTROSE 25,000 UNITS/500 ML BAG IV SCH (18:28)
--- NOTE | 2021-03-11 19:05 | History & Physical Report ---
Date of Service March 11, 2021 Assessment & Plan (1) Pulmonary embolism: Plan: Acute Interval development of several lobar and segmental pulmonary emboli, right greater than left, since CT of February 16, 2021. Associated right lower lobe infarct with a trace right pleural effusion - Patient with previous history of DVTs- lifelong anticoagulation likely needed - PESI- II, with shock index (0.4) - Troponin I negative, no evidence of heart strain, BNP 73 - Continue heparin drip per protocol with bolus - Oral therapy to start when sheared discussion with patient achieved - ? relationship with sarcoid - bilateral duplex of lower extremity negative on admission - no residual of upper extremity thrombophlebitis (2) Chest pain, pleuritic: Plan: Secondary to pulmonary infarct - Lidocaine patches - Toradol 15mg IV x2 doses - PPI with anticoagulation and Toradol - ICS prevent further atelectasis with splinting - oxygen via NC if needed (3) Sarcoidosis: Plan: Reported as quiescent- has not been on steroids in the past for this - just completed course of steroids for her thrombophlebitis per her PCP - Numerous pulmonary nodules and mildly enlarged mediastinal and bilateral hilar lymph nodes which are similar to prior exam - consider pulmonary consultation for evaluation or terminal worker follow up (4) Hiatal hernia with GERD: Plan: Continue with PPI 40mg PO BID - continue famotidine (5) HTN (hypertension): Plan: Controlled (6) Hyperthyroidism: Plan: Continue methimazole 10mg PO BID - TSH in morning (7) Anxiety and depression: Plan: On multiple agents - continue home regimen History of Present Illness Chief Complaint: pleuritic right-sided chest pain Primary Care Provider: Alisson Zhang MD 55 YOF with past medical history of: Obesity, HTN, GERD, hiatal hernia, gastric sleeve, pulmonary sarcoidosis, hyperthyroidism, thyroid nodule with negative FNA in 2019 but secondary to size she is scheduled in March to have lobectomy performed, DVT 2014 treated with Lovenox, DVT 2018, and possible upper extremity thrombophlebitis with clot in 2019. Patient comes in today for one day history of right sided chest pain that started in her upper lateral chest that got worse when she breathed in and this morning it was under her arm pit and under her breast, sharp and stabbing in nature that occurs with inspiration. It was found on CTA of the chest today that she had bilateral PE with pulmonary infarction. She was started on Heparin drip at that time. For her right sided chest wall pain will start lidocaine patch and provide Toradol IV x2 doses overnight. patient is on PPI therapy already. Likely transition to oral agent in the morning following discussion with patient. She will need lifelong anticoagulation. Patient received Morphine prior to assessment so she was falling asleep. Her bilateral venous Doppler were negative on admission. The patient was admitted recently in February 16 for complaints of atypical chest pain where she had a negative CTA at that time, an EST where she reached 76% of her maximal HR and was terminated secondary to fatigue and dyspnea. Her TSH was very low at that time and she was started on Tapazole, also reports phlebitis of her right arm following blood draw that is not present at this time and non-tender. She does endorse not getting up and moving around much since her discharge and secondary to feeling tired and her hiatal hernia her oral intake of food and water has been minimal. Her COVID test on admission is: NEGATIVE Allergies Allergy/AdvReac Type Severity Reaction Status Date / Time Iodinated Contrast Media Allergy Intermediate hives Verified 03/11/21 15:42 vaccine adjuvant system, Allergy Intermediate ARM Verified 03/11/21 15:42 [id number] liposomal SWELLED UP [From Shingrix (PF)] varicella-zoster virus Allergy Intermediate ARM Verified 03/11/21 15:42 glycoprotein E, recombinant SWELLED UP [From Shingrix (PF)] latex Allergy Mild Redness of Verified 03/11/21 15:42 Skin citalopram AdvReac Mild headache Verified 03/11/21 15:42 Penicillins AdvReac Mild mouth sores Verified 03/11/21 15:42 Home Medications Medication Instructions Recorded Confirmed Type calcium carbonate 600 mg calcium 600 mg PO BID 08/12/18 03/11/21 History (1,500 mg) tablet (Calcium) cyanocobalamin (vitamin B-12) 1,000 mcg PO QAM 08/12/18 03/11/21 History 1,000 mcg tablet (Vitamin B-12) multivitamin 1 tab PO QAM 08/12/18 03/11/21 History cholecalciferol (vitamin D3) 25 1,000 unit PO DAILY 12/18/18 03/11/21 History mcg (1,000 unit) tablet (Vitamin D3) budesonide-formoterol HFA 160 2 puff INHALATION BID #10.2 g 01/07/20 03/11/21 Rx mcg-4.5 mcg/actuation aerosol inhaler (Symbicort) omega 9-ljh-idl-fish oil 1,000 mg 1 cap PO BID cap 04/11/20 03/11/21 History (120 mg-180 mg) capsule (Fish Oil) buspirone 30 mg tablet 30 mg PO BID #60 tab 04/24/20 03/11/21 Rx pantoprazole 40 mg tablet,delayed 40 mg PO BID #60 tab 12/15/20 03/11/21 Rx release (Protonix) bupropion HCl 150 mg tablet,12 hr 150 mg PO BID #90 ea 01/23/21 03/11/21 Rx sustained-release trazodone 150 mg tablet 150 mg PO HS 02/13/21 03/11/21 History clonazepam 0.5 mg tablet 0.5 mg PO DAILY PRN 02/16/21 03/11/21 History mirtazapine 30 mg tablet 30 mg PO DAILY 02/16/21 03/11/21 History clonazepam 1 mg tablet (Klonopin) 0.5 mg PO BID tab 02/20/21 03/11/21 History metoprolol tartrate 25 mg tablet 25 mg PO BID #60 tab 03/09/21 03/11/21 Rx famotidine 20 mg tablet 20 mg PO HS 03/11/21 03/11/21 History methocarbamol 750 mg tablet 750 mg PO TID PRN 03/11/21 03/11/21 History Past Med/Surg History Medical History (Updated 03/11/21 @ 23:34 by Shawn Shea) Chronic back pain Deep vein thrombosis LLE around 2014 S/P ANTICOAGULATION [place] Dizziness GERD (gastroesophageal reflux disease) Headache History of endometriosis Hyperthyroidism Polydipsia Sarcoidosis Thyroid adenoma, toxic Surgical History History of arthroscopy of knee LEFT History of colonoscopy (~2017) History of elbow surgery LEFT History of esophagogastroduodenoscopy (EGD) (~2017) History of hysterectomy with unilateral oophorectomy W/APPENDECTOMY History of sleeve gastrectomy History of tubal ligation S/P laparoscopic cholecystectomy (~2018) Family History Sister Graves disease Other Diabetes Hypertension Denies family history of Ovarian cancer Prostate cancer Myocardial infarction Breast cancer Colorectal cancer Social History Smoking Status: Never smoker Second Hand Exposure: No ( A CHILD); Hx Alcohol Use: No Hx Substance Use: No Preferred Language: Kazakh Communication Ability: Effective Visual Impairment: No Limitations Mail Order Sorter Required: No Beliefs That Will Affect Care: Gnosticist Gnosticist Beliefs: confucianism marital status: Current Living Situation: Spouse, Parent and Family Current Living Situation Comment: at home with trinh, mother, 4 kids How many Children do You have: 2 Feels Safe at Home: Yes Safety Concerns: Feels Safe At This Time Childhood Exposure to Second-Hand Smoke: Yes caffeine: Yes Dental Care, Regularly: Yes Physical Activity Frequency: Daily Seatbelt Use: always Sunscreen Use: No Assistive Devices: Glasses Review of Systems Review of Systems: REVIEW OF SYSTEMS: Constitutional: (+) fatigue, No fever, sweats or chills Eyes: No diplopia, no worsening or blurred vision ENT: normal hearing, no trouble swallowing Respiratory: (+) cough, dyspnea at rest or on exertion, NO sputum Cardiovascular: (+) chest wall pain, No tightness or palpitations Abdomen: No pain, nausea, vomiting, diarrhea or constipation Musculoskeletal: No joint pain, calf pain, swelling Neurologic: No weakness, numbness/tingling, or balance problems Psychiatric: (+) depresssion Skin: No rash or itch Physical Exam Physical Exam: PHYSICAL EXAM: General: awake, alert, no apparent distress Head: Normocephalic, atraumatic ENT: PERRL, EOMI, no pharyngeal exudate, mucous membranes moist Neuro: AAO x 3, speech clear and appropriate, strength intact bilaterally 5/5, sensation intact and equal all extremities and dermatomes, no pronator drift Chest: equal rise and fall of the chest, no accessory muscle use, no heaves or thrills, decreased in bases with scattered crackles, on room air, chest wall pain on the right side with inspiration Cardiac: Regular rate and rhythm, telemetry reviewed- NSR, skin warm dry, cap refill <3 seconds, peripheral pulses +2 no JVD, no murmur, no edema GI: NABS x 4 quadrants, soft, nontender to palpation, no rebound, guarding or tenderness : Spontaneously voiding, no pain, no CVA tenderness, Extremities: Normal inspection, no peripheral edema or erythema, calfs nontender to palpation Psych: Normal mood and affect Skin: no rash or erythema Results & Data Results & Data ([facility] [place]) Vital Signs (Past 12 Hours) Vital Signs Temp Pulse Resp BP Pulse Ox 03/11/21 18:15 67 15 92 03/11/21 18:00 73 18 118/75 94 03/11/21 17:45 67 20 91 03/11/21 17:30 73 17 121/71 93 03/11/21 17:15 72 19 93 03/11/21 17:00 67 20 93 03/11/21 16:45 66 23 94 03/11/21 16:30 76 115/74 94 03/11/21 16:15 65 14 92 03/11/21 16:09 116/56 L 94 03/11/21 15:30 66 18 107/60 92 03/11/21 15:15 69 20 92 03/11/21 15:00 68 19 102/79 92 03/11/21 14:45 69 16 100/72 03/11/21 14:30 70 18 115/53 L 91 03/11/21 14:15 71 20 116/66 95 03/11/21 13:38 96 03/11/21 13:26 37.1 C 75 20 149/83 H 94 Laboratory Results Abnormal lab results 03/11/21 03/11/21 03/11/21 Range/Units 13:48 13:48 13:48 RDW Std Deviation 46.6 H (36.4-46.3) fL MPV 10.8 H (7.4-10.4) fL Lymph # (Auto) 1.11 L (1.2-3.4) K/uL [place] # (Auto) 0.94 H (0.11-0.59) K/uL D-Dimer 1810 H* (0-500) ug/L FEU BUN 25 H (7-18) mg/dl BUN/Creatinine Ratio 24.5 H (10-20) Globulin 4.1 H (2.5-4.0) gm/dl Albumin/Globulin Ratio 0.8 L (0.9-2) Lipase 418 H (73-393) U/L Ur Leukocyte Esterase (Negative) Urine WBC (Auto) (0-5) /hpf U Epithel Cells (Auto) (0-5) /lpf 03/11/21 Range/Units 14:20 RDW Std Deviation (36.4-46.3) fL MPV (7.4-10.4) fL Lymph # (Auto) (1.2-3.4) K/uL [place] # (Auto) (0.11-0.59) K/uL D-Dimer (0-500) ug/L FEU BUN (7-18) mg/dl BUN/Creatinine Ratio (10-20) Globulin (2.5-4.0) gm/dl Albumin/Globulin Ratio (0.9-2) Lipase (73-393) U/L Ur Leukocyte Esterase Trace H (Negative) Urine WBC (Auto) 5-10 H (0-5) /hpf U Epithel Cells (Auto) 10-20 H (0-5) /lpf Diagnostic Findings Chest X-Ray 03/11/21 13:38 XR chest 1V portable CLINICAL HISTORY: Chest Pain COMPARISON STUDY: Chest radiograph and chest CT February 16, 2021. FINDINGS: Lung volumes are diminished. There is no pneumothorax or pleural effusion. Bibasilar opacities are predominantly linear configuration. There is no lobar consolidation. No evidence for pulmonary edema. Cardiomediastinal silhouette is stable. IMPRESSION: Low lung volumes with bibasilar opacities that likely reflect atelectasis. An infectious process could appear similar. ACT 112: Negative or not required by law. Electronically signed by: Luis Enrique Mark M.D. 03/11/2021 2:07 PM Venous Doppler Study 03/11/21 13:42 BILATERAL LOWER EXTREMITY VENOUS DOPPLER CLINICAL HISTORY: Chest pain. Lower extremity swelling. COMPARISON STUDY: Left lower extremity venous Doppler ultrasound December 18, 2018. TECHNIQUE: Sonography of the deep venous system of the bilateral lower extremities was performed. Compression and augmentation were evaluated. FINDINGS: The bilateral common femoral, superficial femoral and popliteal veins were compressible. Augmentation was normal. Flow was shown within the deep calf vessels. IMPRESSION: No evidence of deep venous thrombus within the bilateral lower extremities. ACT 112: Negative or not required by law. Electronically signed by: Luis Enrique Mark M.D. 03/11/2021 4:26 PM Chest CTA 03/11/21 16:43 CT ANGIOGRAPHY OF THE CHEST, PULMONARY EMBOLUS PROTOCOL CLINICAL HISTORY: Atypical chest pain. History of sarcoidosis. COMPARISON STUDY: Chest CT February 16, 2021. Chest radiograph performed earlier today. TECHNIQUE: Patient was premedicated for IV dye allergy as per ED protocol. Following IV administration of 120 mL of Optiray, helical axial images of the chest were obtained utilizing the pulmonary embolus protocol. Maximal intensity projections and sagittal and coronal reformats were viewed on an independent 3D workstation. IV contrast was administered without complication. Automated exposure control was utilized for the study. A dose lowering technique was utilized adhering to the principles of ALARA. CT DOSE: 404.08 mGy.cm FINDINGS: There has been interval development of multiple right-sided segmental no lobar pulmonary emboli since CT of February 16, 2021. These include an embolus within a segmental branch of the posterior basal segment of the right lower lobe with associated groundglass opacity suggestive of a pulmonary infarct. There is a trace right pleural effusion. Small right-sided pulmonary emboli are also noted. There is a embolus within the lobar branch to the right upper lobe. There are several suspected small left lower lobe pulmonary embolus. Postoperative findings within the stomach are partially imaged. There is a probable hiatal hernia. Mild dilatation of the ascending aorta, measuring 3.9 cm there is no thoracic aortic dissection. There is no pericardial effusion. Lungs are suboptimally assessed due to respiratory motion. Numerous pulmonary nodules are similar to prior exam. These may be related to sarcoidosis. Mildly enlarged mediastinal and bilateral hilar lymph nodes are unchanged. There is no significant abnormalities within visualized portions of the upper abdomen. IMPRESSION: 1. Interval development of several lobar and segmental pulmonary emboli, right greater than left, since CT of February 16, 2021. Associated right lower lobe infarct with a trace right pleural effusion. 2. Numerous pulmonary nodules and mildly enlarged mediastinal and bilateral hilar lymph nodes which are similar to prior exam. These are consistent with the provided history of sarcoidosis. ACT 112: Negative or not required by law. Electronically signed by: Luis Enrique Mark M.D. 03/11/2021 5:45 PM Medications Administered Heparin Sodium/Dextrose (Heparin Sodium/Dextrose) 25,000 units in 500 mls @ 24 mls/hr IV .[id number] [facility]; Protocol Stop: 04/10/21 18:29 Last Admin: 03/11/21 18:28 Dose: 1,200 units/hr, 24 mls/hr Documented by: [id number] Cosigned by: [id number] Discontinued Medications Diphenhydramine HCl (Diphenhydramine 50 Mg/Ml Vial) 25 mg IV NOW STA Stop: 03/11/21 16:44 Last Admin: 03/11/21 17:05 Dose: 25 mg Documented by: [id number] Heparin Sodium (Porcine) (Heparin Sod (Porcine) 1000 Unit/Ml) 1 units IV NOW ONE Stop: 03/11/21 18:26 Last Admin: 03/11/21 18:29 Dose: 5,000 units Documented by: [id number] Cosigned by: [id number] Heparin Sodium/Dextrose (Heparin Iv Adult Wt-Based Standard With Bolus Protocol) 1 ea IV NOW STA; Protocol Stop: 03/11/21 18:10 Last Admin: 03/11/21 18:29 Dose: Not Given Documented by: [id number] Sodium Chloride (Nss) 500 mls @ 999 mls/hr IV .Q31M STA Stop: 03/11/21 14:08 Last Infusion: 03/11/21 15:41 Dose: 0 mls/hr Documented by: [id number] Admin: 03/11/21 14:51 Dose: 999 mls/hr Documented by: [id number] Famotidine (Pepcid 20mg Iv Push) 20 mg in 5 mls @ 2.5 mls/min IV NOW STA Stop: 03/11/21 16:44 Last Admin: 03/11/21 17:08 Dose: 2.5 mls/min Documented by: [id number] Ioversol (Optiray 320 125ml) 120 ml IV ONCE ONE Stop: 03/11/21 17:27 Last Admin: 03/11/21 17:28 Dose: 120 ml Documented by: [id number] Methylprednisolone (Methylprednisolone 125 Mg/2 Ml Vial) 125 mg IV NOW STA Stop: 03/11/21 16:44 Last Admin: 03/11/21 17:07 Dose: 125 mg Documented by: [id number] Morphine Sulfate (Morphine Sulfate 4 Mg/Ml 1 Ml Carp\\Vial) 4 mg IV NOW STA Stop: 03/11/21 13:39 Last Admin: 03/11/21 14:51 Dose: 4 mg Documented by: [id number] Morphine Sulfate (Morphine Sulfate 4 Mg/Ml 1 Ml CarpVial) 4 mg IV NOW STA Stop: 03/11/21 16:44 Last Admin: 03/11/21 17:03 Dose: 4 mg Documented by: [id number] Ondansetron HCl (Ondansetron Inj 2 Mg/Ml 2 Ml Vial) 4 mg IV NOW STA Stop: 03/11/21 13:39 Last Admin: 03/11/21 14:51 Dose: 4 mg Documented by: [id number] ECG Additional Comments: Sinus rhythm with 1st degree A-V block Right bundle branch block Abnormal ECG When compared with ECG of 15-FEB-2021 23:24, No significant change was found Code Status & VTE Plan Code Status CODE: FULL VTE: SCDs, Heparin drip VTE Prophylaxis Plan VTE Prophylaxis will be ordered: Yes Supervising Physician Co-Signing Physician Notes Attending Attestation and Admission Note - Pt seen/examined, chart reviewed, care plan d/w SHELLEY Woodson. I agree w/ the pace components of his admission documentation. 55yo female - recent hospital stay in February for atypical chest pain & palpitations. Interestingly her CTA chest during that stay was NEGATIVE for PE. Underwent stress test -- negative. TSH was depressed - methimazole dose was increased. Palpitations, etc felt 2nd to hyperthyroidism. Also had infiltrated IV which subsequently led to phlebitis of LUE. She reports that swelling of L arm extended to the L shoulder. Presents today with recurrent pleuritic chest pain - CTA chest + for b/l PEs. On CTA chest there continues to be hilar & mediastinal lymph nodes along with numerous pulmonary nodules from her sarcoid. PMH/PSH/allergies/meds/sochx/famhx - reviewed vitals - one instance of hypoxia to the 80s; BP/HR stable gen - NAD, anxious neck - cervical lymph node present at angle of R jaw; no JVD heart - RRR, s1 s2 lungs - poor inspiratory effort, decreased BS bases, CTA apices abd - soft NT ND BS+ ext - no edema of legs; no edema or palpable cords LUE labs reviewed imaging reviewed A/P: 1. b/l PEs - underlying risk factors - sarcoid (is such "active" at this time?) + recent hospitalization + ??left arm phlebitis (would need to have developed DVT of LUE). Other factors? Agree w/ heparin drip. will need lifelong anticougulation. DOAC candidate? Check LUE doppler to r/o DVT as the cause of her PEs. 2. sarcoid - has not been on treatment in several years. Continues to have numerous pulmonary nodules and b/l hilar/mediastinal lymph nodes. She also has a large cervical node on right. sarcoid can increase VTE risk. is her sarcoid active? consider pulmonary consultation while here to answer the above question. 3. hyperthyroidism - cont methimazole. Shawn Shea MD PG Care Time/CCT Total # of Minutes Spent Total Time Spent with Patient: Total time spent is greater than 50% in coordination of care (as documented) at patient's floor/unit and/or counseling patient: Coding Level of Care Code 61760 Initial Inpt Care Lvl 3 Diagnoses Pulmonary embolism I26.99 Acute cor pulmonale presence: unspecified Chronicity: acute Pulmonary embolism type: unspecified Chest pain, pleuritic R07.81 Hiatal hernia with GERD K21.9; K44.9 HTN (hypertension) I10 Hyperthyroidism E05.90 Anxiety and depression F41.9; F32.9 Sarcoidosis D86.9 (1) Pulmonary embolism Acute cor pulmonale presence: unspecified Chronicity: acute Pulmonary embolism type: unspecified Qualified Code(s): I26.99 - Other pulmonary embolism without acute cor pulmonale
[2021-03-11] MEDS ORDERED: ACETAMINOPHEN 325 MG TAB PO PRN (21:17)
[2021-03-11] MEDS ORDERED: POLYETHYLENE (MIRALAX) 17 GM PACK PO PRN (21:17)
[2021-03-11] MEDS ORDERED: ONDANSETRON INJ 2 MG/ML 2 ML VIAL IV PRN (21:17)
[2021-03-11] MEDS ORDERED: clonazePAM 0.5 MG TAB PO PRN (21:17)
[2021-03-11] MEDS: CALCIUM CARBONATE 1250MG TAB PO SCH (23:10)
[2021-03-11] MEDS: buPROPion SR 150 MG TABCR PO SCH (23:10)
[2021-03-11] MEDS: busPIRone 15 MG TAB PO SCH ×2 (23:10→23:24)
[2021-03-11] MEDS: FAMOTIDINE 20 MG TAB PO SCH (23:10)
[2021-03-11] MEDS: clonazePAM 0.5 MG TAB PO SCH (23:10)
[2021-03-11] MEDS: KETOROLAC TROMETHAMINE 15 MG/ML VIAL IV SCH (23:10)
[2021-03-11] MEDS: LIDOCAINE 5% 1 PATCH TD SCH (23:11)
[2021-03-11] MEDS: METOPROLOL TARTRATE 25 MG TAB PO SCH (23:12)
[2021-03-11] MEDS: methIMAzole 5 MG TABLET PO SCH (23:12)
[2021-03-11] MEDS: traZODone HCL 50 MG TAB PO SCH (23:13)
[2021-03-11] MEDS: PANTOprazole 40 MG TAB PO SCH (23:13)
[2021-03-12 01:50] LABS: Partial Thromboplastin Time 106.5 Seconds (21.0-31.0)
[2021-03-12] MEDS: KETOROLAC TROMETHAMINE 15 MG/ML VIAL IV SCH ×4 (04:27→22:12)
--- NOTE | 2021-03-12 08:56 | Ultrasound Report ---
LEFT UPPER EXTREMITY VENOUS DOPPLER ULTRASOUND CLINICAL HISTORY: recent phlebitis of L arm; new PEs; eval DVT LUE COMPARISON STUDY: No previous studies for comparison. TECHNIQUE: Sonography of the deep venous system of the left upper extremity was performed. FINDINGS: No deep venous thrombus is identified within the left upper extremity. Note is made of supe rficial thrombus within the left cephalic vein which extends from the level of the mid to distal fore arm. IMPRESSION: 1. Superficial thrombus within the left cephalic vein which extends from the level of the mid to dist al forearm. 2. No deep venous thrombus within the left upper extremity. ACT 112: Negative or not required by law. Electronically signed by: Luis Enrique Mark M.D. 03/12/2021 8:55 AM
[2021-03-12 09:38] LABS: Basophils # (auto) 0.01 K/uL (0-0.2); Basophils % (auto) 0.1 %; Hematocrit (blood only) 41.1 % (37-47); Hemoglobin 13.8 g/dL (12.0-16.0); Immature Granulocytes # (auto) 0.01 K/uL (0.00-0.02); Immature Granulocytes % (auto) 0.1 %; Lymphocytes # (auto) 0.59 K/uL (1.2-3.4); Lymphocytes % (auto) 7.7 %; Mean Corpuscular Hemoglobin 31.4 pg (25-34); Mean Corpuscular Hgb Conc 33.6 g/dL (32-36); Mean Corpuscular Volume 93.6 fL (80-100); Monocytes # (auto) 0.69 K/uL (0.11-0.59); Neutrophils # (auto) 6.39 K/uL (1.4-6.5); Neutrophils % (auto) 83.1 %; Platelet Count 158 K/uL (130-400); RDW Coefficient of Variation 13.3 % (11.5-14.5); RDW Standard Deviation 45.8 fL (36.4-46.3); Red Blood Count 4.39 M/uL (4.2-5.4); White Blood Count 7.69 K/uL (4.8-10.8)
[2021-03-12] MEDS: busPIRone 15 MG TAB PO SCH ×2 (09:40→20:57)
[2021-03-12] MEDS: buPROPion SR 150 MG TABCR PO SCH ×2 (09:42→20:57)
[2021-03-12] MEDS: PANTOprazole 40 MG TAB PO SCH ×2 (09:43→20:58)
[2021-03-12] MEDS: METOPROLOL TARTRATE 25 MG TAB PO SCH ×2 (09:43→20:56)
[2021-03-12] MEDS: CALCIUM CARBONATE 1250MG TAB PO SCH ×2 (09:43→20:57)
[2021-03-12] MEDS: clonazePAM 0.5 MG TAB PO SCH ×2 (09:44→20:58)
[2021-03-12] MEDS: CYANOCOBALAMIN 500 MCG TABLET (VITAMIN B-12) PO SCH (09:44)
[2021-03-12] MEDS: MIRTAZAPINE TAB 15 MG TAB PO SCH (09:44)
[2021-03-12] MEDS: FLUTICASONE/VILANTEROL 200/25MCG 14 PUFFS/INHALER INH SCH (09:44)
[2021-03-12] MEDS: methIMAzole 5 MG TABLET PO SCH ×2 (09:46→20:58)
[2021-03-12 10:02] LABS: Partial Thromboplastin Ratio 2.5
[2021-03-12 10:07] LABS: BUN Creatinine Ratio 26.4 (10-20); Calcium 9.8 mg/dl (8.5-10.1); Creatinine Clr Calc Pharmacy 76.5 ml/min; Est GFR (African American) 86.3 ml/min; Est GFR (Non-African American) 74.5 ml/min; Magnesium 2.5 mg/dl (1.8-2.4); Potassium 4.4 mmol/L (3.5-5.1)
[2021-03-12 10:15] LABS: Partial Thromboplastin Time 65.2 Seconds (21.0-31.0)
[2021-03-12 10:17] LABS: Thyroid Stimulating Hormone 0.554 uIu/ml (0.300-4.500)
--- NOTE | 2021-03-12 10:19 | Hospitalist Progress Note ---
Date of Service March 12, 2021 Assessment & Plan (1) Pulmonary embolism: Plan: Currently on heparin drip. Venous Doppler of the left upper extremity reveals left cephalic vein thrombus. I suspect she will be switched to a NOAC prior to discharge (2) Chest pain, pleuritic: Plan: Secondary to pulmonary infarct - Lidocaine patches - Toradol 15mg IV x2 doses - PPI with anticoagulation and Toradol - ICS prevent further atelectasis with splinting - oxygen via NC if needed (3) Sarcoidosis: Plan: Reported as quiescent- has not been on steroids in the past for this - just completed course of steroids for her thrombophlebitis per her PCP - Numerous pulmonary nodules and mildly enlarged mediastinal and bilateral hilar lymph nodes which are similar to prior exam - consider pulmonary consultation for evaluation or assisted follow up (4) Hiatal hernia with GERD: Plan: Continue with PPI 40mg PO BID - continue famotidine (5) HTN (hypertension): Plan: Controlled (6) Hyperthyroidism: Plan: Continue methimazole 10mg PO BID - TSH in morning (7) Anxiety and depression: Plan: On multiple agents - continue home regimen Plan: Continue heparin drip for now. Eventual switch to NOAC at discharge home Admission and Anticipated Discharge Date Admission Date: March 11, 2021 Subjective Alert and oriented. She continues to have some pleuritic type pain. Oxygen saturation 95% on 3 L she remains on a heparin drip. Left upper extremity ultrasound reveals left cephalic vein thrombus which could conceivably be the source of her current pulmonary emboli. Review of Systems Review of Systems: All systems reviewed & are unremarkable except as noted in HPI & below Physical Exam Physical Exam: General-alert and oriented x3, no fevers, no chills HEENT-head atraumatic and normocephalic, TMs intact bilaterally, pupils equal and reactive to light, extraocular muscles intact Neck-no lymphadenopathy or thyromegaly, trachea midline Chest-clear to auscultation percussion. No rales wheezing or rhonchi Cardiac-regular rate and rhythm, normal S1 and S2, no murmurs Abdomen-normal bowel sounds, nontender, no hepatosplenomegaly Extremities-no cyanosis, clubbing, or edema Neuro-cranial nerves II through XII intact, motor and sensory function within normal limits, strength symmetrical 5/5, no focal deficits Psych-normal affect, normal mood Results & Data Results & Data ([facility]) Vital Signs (Past 12 Hours) Vital Signs Temp Pulse Pulse Resp BP Pulse Ox 03/12/21 08:19 36.5 C 61 16 105/68 92 03/12/21 04:35 52 L 03/12/21 03:06 36.6 C 60 16 109/71 95 03/12/21 00:22 55 L 03/11/21 23:02 36.5 C 64 18 97/64 L 93 Laboratory Results 03/12/21 09:10 03/12/21 09:10 Diagnostic Findings Left upper extremity ultrasound reveals left cephalic vein thrombus PG Care Time/CCT Total # of Minutes Spent Total Time Spent with Patient: Total time spent is greater than 50% in coordination of care (as documented) at patient's floor/unit and/or counseling patient: Coding Level of Care Code 08140 Subseq Hosp Care Lvl 3 Diagnoses Pulmonary embolism I26.99 Acute cor pulmonale presence: unspecified Chronicity: acute Pulmonary embolism type: unspecified Chest pain, pleuritic R07.81 Sarcoidosis D86.9 Hiatal hernia with GERD K21.9; K44.9 HTN (hypertension) I10 Hyperthyroidism E05.90 Anxiety and depression F41.9; F32.9 (1) Pulmonary embolism Acute cor pulmonale presence: unspecified Chronicity: acute Pulmonary embolism type: unspecified Qualified Code(s): I26.99 - Other pulmonary embolism without acute cor pulmonale
[2021-03-12] MEDS: oxyCODONE HCL IR 5 MG TAB (IMMEDIATE RELEASE) PO PRN ×2 (12:03→18:15)
--- NOTE | 2021-03-12 12:03 | Electrocardiogram Report ---
Test Reason : Blood Pressure : / mmHG Vent. Rate : 076 BPM Atrial Rate : 076 BPM P-R Int : 212 ms QRS Dur : 130 ms QT Int : 424 ms P-R-T Axes : 017 044 -06 degrees QTc Int : 477 ms Poor data quality, interpretation may be adversely affected Sinus rhythm with 1st degree A-V block Right bundle branch block Abnormal ECG When compared with ECG of 15-FEB-2021 23:24, No significant change was found Confirmed by Jorge Romero ([id number]) on 03/12/2021 12:03:41 PM Referred By: Confirmed By:Jorge Romero
[2021-03-12] MEDS: HEPARIN SODIUM/DEXTROSE 25,000 UNITS/500 ML BAG IV SCH (18:17)
[2021-03-12] MEDS ORDERED: CALCIUM CARBONATE 500 MG CHEWABLE TAB PO PRN (19:24)
[2021-03-12] MEDS: FAMOTIDINE 20 MG TAB PO SCH (20:58)
[2021-03-12] MEDS: traZODone HCL 50 MG TAB PO SCH (22:11)
[2021-03-12] MEDS: LIDOCAINE 5% 1 PATCH TD SCH (22:12)
[2021-03-13] MEDS ORDERED: SODIUM CHLORIDE 0.9% 1000ML 1,000 ML IV ONE (00:36)
[2021-03-13] MEDS: KETOROLAC TROMETHAMINE 15 MG/ML VIAL IV SCH ×2 (04:18→11:15)
[2021-03-13 05:43] LABS: Basophils # (auto) 0.01 K/uL (0-0.2); Basophils % (auto) 0.2 %; Eosinophils # (auto) 0.13 K/uL (0-0.5); Eosinophils % (auto) 2.3 %; Hemoglobin 11.7 g/dL (12.0-16.0); Immature Granulocytes # (auto) 0.01 K/uL (0.00-0.02); Immature Granulocytes % (auto) 0.2 %; Lymphocytes # (auto) 0.93 K/uL (1.2-3.4); Lymphocytes % (auto) 16.3 %; Mean Corpuscular Hemoglobin 30.9 pg (25-34); Mean Corpuscular Hgb Conc 32.5 g/dL (32-36); Mean Platelet Volume 10.7 fL (7.4-10.4); Monocytes # (auto) 0.51 K/uL (0.11-0.59); Platelet Count 138 K/uL (130-400); RDW Standard Deviation 48.1 fL (36.4-46.3); Red Blood Count 3.79 M/uL (4.2-5.4); White Blood Count 5.69 K/uL (4.8-10.8)
[2021-03-13 06:06] LABS: Partial Thromboplastin Ratio 2.2
[2021-03-13 06:09] LABS: Calcium 8.4 mg/dl (8.5-10.1); Creatinine Clr Calc Pharmacy 57.9 ml/min; Est GFR (African American) 61.6 ml/min; Est GFR (Non-African American) 53.1 ml/min; Magnesium 2.2 mg/dl (1.8-2.4); Potassium 4.5 mmol/L (3.5-5.1)
[2021-03-13 06:14] LABS: Partial Thromboplastin Time 57.3 Seconds (21.0-31.0)
[2021-03-13] MEDS: CYANOCOBALAMIN 500 MCG TABLET (VITAMIN B-12) PO SCH (07:57)
[2021-03-13] MEDS: MIRTAZAPINE TAB 15 MG TAB PO SCH (07:57)
[2021-03-13] MEDS: CALCIUM CARBONATE 1250MG TAB PO SCH (07:58)
[2021-03-13] MEDS: busPIRone 15 MG TAB PO SCH (07:58)
[2021-03-13] MEDS: PANTOprazole 40 MG TAB PO SCH (08:00)
[2021-03-13] MEDS: buPROPion SR 150 MG TABCR PO SCH (08:00)
[2021-03-13] MEDS: methIMAzole 5 MG TABLET PO SCH (08:00)
[2021-03-13] MEDS: FLUTICASONE/VILANTEROL 200/25MCG 14 PUFFS/INHALER INH SCH (08:02)
[2021-03-13] MEDS: METOPROLOL TARTRATE 25 MG TAB PO SCH (08:06)
[2021-03-13] MEDS: clonazePAM 0.5 MG TAB PO SCH (08:10)
[2021-03-13] MEDS: oxyCODONE HCL IR 5 MG TAB (IMMEDIATE RELEASE) PO PRN (08:10)
--- NOTE | 2021-03-13 13:28 | Discharge Summary ---
Date of Service March 13, 2021 Admission HPI Per Admitting Provider 55 YOF with past medical history of: Obesity, HTN, GERD, hiatal hernia, gastric sleeve, pulmonary sarcoidosis, hyperthyroidism, thyroid nodule with negative FNA in 2019 but secondary to size she is scheduled in March to have lobectomy performed, DVT 2014 treated with Lovenox, DVT 2018, and possible upper extremity thrombophlebitis with clot in 2019. Patient comes in today for one day history of right sided chest pain that started in her upper lateral chest that got worse when she breathed in and this morning it was under her arm pit and under her breast, sharp and stabbing in nature that occurs with inspiration. It was found on CTA of the chest today that she had bilateral PE with pulmonary infarction. She was started on Heparin drip at that time. For her right sided chest wall pain will start lidocaine patch and provide Toradol IV x2 doses overnight. patient is on PPI therapy already. Likely transition to oral agent in the morning following discussion with patient. She will need lifelong a nticoagulation. Patient received Morphine prior to assessment so she was falling asleep. Her bilateral venous Doppler were negative on admission. The patient was admitted recently in February 16 for complaints of atypical chest pain where she had a negative CTA at that time, an EST where she reached 76% of her maximal HR and was terminated secondary to fatigue and dyspnea. Her TSH was very low at that time and she was started on Tapazole, also reports phlebitis of her right arm following blood draw that is not present at this time and non-tender. She does endorse not getting up and moving around much since her discharge and secondary to feeling tired and her hiatal hernia her oral intake of food and water has been minimal. Upon further hospitalization, she was started on heparin by weight. Her chest pain gradually resolved and she was transitioned to NOAC. she was discharged today in stable condition and asked to follow up with her regular PCP Principal Diagnosis Acute Pulmonary Embolism Discharge Exam The patient is awake, alert and oriented 3, well developed and well nourished, normocephalic and atraumatic, lying in bed and in no acute distress. HEENT--PERRL, EOMI, mucous membranes and oropharynx mildly dry Neck--supple. No JVD. No bruits. Thyroid normal, trachea midline, no adenopathy. Heart--normal S1 and S2. No murmurs, rubs or gallops. Lungs--clear bilaterally, no respiratory distress, no accessory muscle use. Abdomen--normal bowel sounds and soft. Mild epigastric and left sided abdominal pain Extremities--no cyanosis or clubbing. No edema. Dermatologic--normal skin turgor, normal color, no abnormal lymph nodes, no rash. Neurologic--cranial nerves II through XII grossly intact. Rheumatologic--normal range of motion. Psychiatric--normal affect. Discharge Data Allergies Allergy/AdvReac Type Severity Reaction Status Date / Time Iodinated Contrast Media Allergy Intermediate hives Verified 03/11/21 15:42 vaccine adjuvant system, Allergy Intermediate ARM Verified 03/11/21 15:42 [id number] liposomal SWELLED UP [From Shingrix (PF)] varicella-zoster virus Allergy Intermediate ARM Verified 03/11/21 15:42 glycoprotein E, recombinant SWELLED UP [From Shingrix (PF)] latex Allergy Mild Redness of Verified 03/11/21 15:42 Skin citalopram AdvReac Mild headache Verified 03/11/21 15:42 Penicillins AdvReac Mild mouth sores Verified 03/11/21 15:42 Consultations 03/11/21 18:10 ED Decision to Admit Stat Ordered Studies 03/11/21 13:42 US venous doppler LE BI Stat 03/11/21 16:43 CT angio chest PE protocol Stat 03/12/21 22:37 US venous doppler UE LT Routine Hospital Course (1) Pulmonary embolism: Discharged on NOAC (2) Chest pain, pleuritic: Resolved (3) Sarcoidosis: Reported as quiescent- has not been on steroids in the past for this - just completed course of steroids for her thrombophlebitis per her PCP - Numerous pulmonary nodules and mildly enlarged mediastinal and bilateral hilar lymph nodes which are similar to prior exam - consider pulmonary consultation for evaluation or prison follow up (4) Hiatal hernia with GERD: Continue with PPI 40mg PO BID - continue famotidine (5) HTN (hypertension): Controlled (6) Hyperthyroidism: Continue methimazole 10mg PO BID - TSH in morning (7) Anxiety and depression: On multiple agents - continue home regimen Continue heparin drip for now. Eventual switch to NOAC at discharge home Total Time Total Time Spent Total Time Spent (In Minutes): >35 min Discharge Plan Discharge Items Patient Disposition: Home - Self-Care Reason For Visit: PE Discharge Diagnosis: Pulmonary Embolism Activity: As commented below Activity Comment: As tolerated Lifting: Gradually increase as tolerated Bathing: No limitations Driving/Machine Use: No limitations Non-emergency contact: Primary Care Provider Call non-emergency contact if: you have any medication questions and your symptoms worsen Follow-up/Referrals: Alisson Francis MD [Primary Care Provider] - 03/20/21 11:30 am (FOLLOW UP WITH DR. FRANCIS) Diet: Regular Addtl Attending Provider Instructions: please make appointment to follow up with your PCP Pending Studies at Discharge: No Stand-Alone Forms: [employer], Smoking Cessation Medications and DC Order Prescriptions: New Eliquis 5 mg (74 tabs) tablets,dose pack 10 mg PO BID 7 Days Qty: 28 RF: 0 Eliquis 5 mg (74 tabs) tablets,dose pack 5 mg PO BID 30 Days Qty: 60 RF: 0 Continued buspirone 30 mg tablet 30 mg PO BID Qty: 60 RF: 6 pantoprazole [Protonix] 40 mg tablet,delayed release (DR/EC) 40 mg PO BID Qty: 60 RF: 11 bupropion HCl 150 mg tablet sustained-release 12 hr 150 mg PO BID Qty: 90 RF: 3 metoprolol tartrate 25 mg tablet 25 mg PO BID Qty: 60 RF: 11 trazodone 150 mg tablet 150 mg PO HS RF: 0 budesonide-formoterol [Symbicort] 160-4.5 mcg/actuation HFA aerosol inhaler 2 puff inhalation BID Qty: 10.2 RF: 3 omega [id number]-fish oil [Fish Oil] 1,000 mg (120 mg-180 mg) capsule 1 cap PO BID RF: 0 clonazepam [Klonopin] 1 mg tablet 0.5 mg PO BID RF: 0 cholecalciferol (vitamin D3) [Vitamin D3] 1,000 unit (25 mcg) Tablet 1,000 unit PO DAILY RF: 0 multivitamin Tablet 1 tab PO QAM RF: 0 cyanocobalamin (vitamin B-12) [Vitamin B-12] 1,000 mcg Tablet 1,000 mcg PO QAM RF: 0 calcium carbonate [Calcium 600] 600 mg calcium (1,500 mg) Tablet 600 mg PO BID RF: 0 clonazepam 0.5 mg tablet 0.5 mg PO DAILY PRN (Reason: Anxiety) RF: 0 mirtazapine 30 mg tablet 30 mg PO DAILY RF: 0 famotidine 20 mg tablet 20 mg PO HS RF: 0 methocarbamol 750 mg tablet 750 mg PO TID PRN (Reason: MUSCLE SPASMS) RF: 0 Discharge Orders: Discharge Order (Routine); Ordered 03/13/21 Ordered By: Driss Cruz/Other Patient Handouts: Embolism Pulmonary Dc Admission Data Admit Date/Time: 03/11/21 18:52 Attending Provider: Holden Robbins Admit Provider: Shawn Shea Primary Care Provider: Alisson Francis Other Providers: Shawn Shea Other Interventions: Discharge Summary Assessment (RN) Last Done: 03/13/21 12:27 Coding Level of Care Code D/C DAY MANAGEMENT >30 MINS Diagnoses Pulmonary embolism I26.99 Acute cor pulmonale presence: unspecified Chronicity: acute Pulmonary embolism type: unspecified Chest pain, pleuritic R07.81 Sarcoidosis D86.9 Hiatal hernia with GERD K21.9; K44.9 HTN (hypertension) I10 Hyperthyroidism E05.90 Anxiety and depression F41.9; F32.9
[2021-03-13] MEDS ORDERED: APIXABAN 5 MG TABLET PO SCH (21:00)
== END 2021-03-13 15:01 | disposition home or self-care (01) | DRG 176 ==
LOC: ED 13:21 → 2N 18:52 → SUATTDRO 18:52 → 2N 20:40

== ENCOUNTER 2022-07-01 17:50 | Inpatient (IN) ==
[2022-07-01] MEDS ORDERED: SODIUM CHLORIDE 0.9% 1000ML 500 ML IV ONE (18:18)
[2022-07-01] MEDS ORDERED: MoRPHine SULFATE 4 MG/ML 1 ML CARP\\VIAL IV STA ×2 (18:18→19:10)
[2022-07-01] MEDS ORDERED: ONDANSETRON INJ 2 MG/ML 2 ML VIAL IV STA ×2 (18:18→19:52)
--- NOTE | 2022-07-01 18:21 | Emergency Department Note ---
History of Present Illness General Chief complaint: Abdominal Pain Stated complaint: ABDOMINAL PAIN Time Seen by Provider: 07/01/22 18:01 History of Present Illness Maximum Pain Intensity: 10 This is a 57-year-old female that presents to the emergency department via private vehicle with complaints of "abdominal pain". Patient has a history of kidney stones. She has a history of lithotripsy. She states that this past Friday she began with some hematuria. She was in [place] and was at an urgent care for evaluation. She notes that she was informed that she might have a UTI and was placed on ciprofloxacin. She states that then she developed pain as of recent in the bilateral flank regions and abdomen. It initially started on the left but is now bilateral. She denies any known trauma or injury. She notes ongoing hematuria. She is on anticoagulation for history of PE. Patient rates her current pain as a 10/10. She states that earlier today she did present to her urologist office and was evaluated. She was referred for CT scan of the abdomen/pelvis. She notes that the abdomen/pelvis CT revealed a 6 mm stone in her ureter. She was prescribed tramadol but notes 0 relief with this medication. She notes ongoing discomfort. No fevers. Home Medications Medication Instructions Recorded Confirmed Type calcium carbonate 600 mg calcium 600 mg PO BID 08/12/18 07/01/22 History (1,500 mg) tablet (Calcium) multivitamin 1 tab PO QAM 08/12/18 07/01/22 History cholecalciferol (vitamin D3) 25 1,000 unit PO DAILY 12/18/18 07/01/22 History mcg (1,000 unit) tablet (Vitamin D3) omega 2-jji-xbb-fish oil 1,000 mg 1 cap PO QAM 04/11/20 07/01/22 History (120 mg-180 mg) capsule (Fish Oil) bupropion HCl 150 mg tablet,12 hr 150 mg PO BID #90 ea 01/23/21 07/01/22 Rx sustained-release fluticasone propionate 50 2 spray intranasal BID PRN allergy 06/04/21 07/01/22 R x mcg/actuation nasal symptoms #16 grams spray,suspension clonazepam 1 mg tablet (Klonopin) 0.5 mg PO HS 09/26/21 07/01/22 History apixaban 5 mg tablet 5 mg PO BID #60 tabs 10/08/21 07/01/22 Rx ascorbic acid (vitamin C) 1,000 mg 1 g PO DAILY 07/01/22 07/01/22 History tablet (Vitamin C) budesonide-formoterol HFA 160 2 puff inhalation BID PRN 07/01/22 07/01/22 History mcg-4.5 mcg/actuation aerosol Shortness Of Breath Or Wheezing inhaler (Symbicort) ciprofloxacin HCl 500 mg tablet 500 mg PO Q12 07/01/22 07/01/22 History famotidine 20 mg tablet 20 mg PO BID 07/01/22 07/01/22 History linaclotide 72 mcg capsule 72 mcg PO DAILYBB 07/01/22 07/01/22 History (Linzess) mirtazapine 15 mg tablet 15 mg PO HS 07/01/22 07/01/22 History pantoprazole 40 mg tablet,delayed 40 mg PO HS 07/01/22 07/01/22 History release (Protonix) sertraline 100 mg tablet 150 mg PO QAM 07/01/22 07/01/22 History tamsulosin 0.4 mg capsule (Flomax) 0.4 mg PO QPM #30 caps 07/01/22 07/01/22 Rx tramadol 50 mg tablet 50 mg PO BID PRN pain #10 tabs 07/01/22 07/01/22 Rx trazodone 100 mg tablet 200 mg PO HS 07/01/22 07/01/22 History zinc acetate 50 mg (zinc) capsule 50 mg PO DAILY 07/01/22 07/01/22 History Allergies Allergy/AdvReac Type Severity Reaction Status Date / Time Iodinated Contrast Media Allergy Intermediate hives Verified 07/01/22 12:13 Penicillins Allergy Intermediate mouth sores Verified 07/01/22 12:13 vaccine adjuvant system, Allergy Intermediate ARM Verified 07/01/22 12:13 AS01B liposomal SWELLED UP [From Shingrix (PF)] varicella-zoster virus Allergy Intermediate ARM Verified 07/01/22 12:13 glycoprotein E, recombinant SWELLED UP [From Shingrix (PF)] latex Allergy Mild Redness of Verified 07/01/22 12:13 Skin citalopram AdvReac Mild headache Verified 07/01/22 12:13 Past Med/Surg History Medical History Anxiety and depression Arthritis Chronic back pain Chronic low back pain Deep vein thrombosis ARM DX> 2014 LLE DX>2009>UNSURE OF REASON/TAKING ELIQUIS GERD (gastroesophageal reflux disease) History of COVID-19 07/2020>SINUS CONGESTION/FEVER/FATIGUE/LOSS OF TASTE AND SMELL *TASTE STILL IS NOT BACK TO NORMAL History of endometriosis History of IBS Hx of migraines Hx of skin cancer, basal cell Kidney stones Lumbar facet joint syndrome Myofascial pain Polydipsia Post traumatic stress disorder Restless leg syndrome Sarcoidosis EFFECTING LUNG Surgical History H/O partial thyroidectomy BENIGN NODULE REMOVED History of anesthesia reaction DIZZINESS History of arthroscopy of knee LEFT History of bronchoscopy History of colonoscopy (~2017) History of elbow surgery LEFT History of esophagogastroduodenoscopy (EGD) (~2017) History of hysterectomy with unilateral oophorectomy W/APPENDECTOMY History of sleeve gastrectomy History of tubal ligation S/P laparoscopic cholecystectomy (~2018) Family History Sister Graves disease Family history of diabetes mellitus Mother Family history of diabetes mellitus Father Family history of diabetes mellitus Other Diabetes Hypertension No family history of adverse response to anesthesia Denies family history of Ovarian cancer Prostate cancer Myocardial infarction Breast cancer Colorectal cancer Social History Smoking Status: Never smoker Second Hand Exposure: Yes ( A CHILD); Hx Alcohol Use: No Hx Substance Use: No Preferred Language: [place]atian Communication Ability: Effective Visual Impairment: No Limitations Instrumentation Specialist Required: No Beliefs That Will Affect Care: None marital status: Current Living Situation: Family Current Living Situation Comment: LIVES WITH MOTHER, , 2 DAUGHTERS AND GRANDSON How many Children do You have: 2 Feels Safe at Home: Yes Childhood Exposure to Second-Hand Smoke: Yes caffeine: Yes Dental Care, Regularly: Yes Physical Activity Frequency: Daily Seatbelt Use: always Sunscreen Use: No Assistive Devices: Glasses Review of Systems A total of 10 systems reviewed and were otherwise negative Physical Exam Vital Signs Vital Signs - 24 hr 07/01/22 17:52 07/01/22 19:15 07/01/22 19:18 Temperature 36.7 C Temperature Source Temporal Artery Scan Pulse Rate 80 69 Pulse Rate [Right Brachial] 71 Pulse Rate from SpO2 Sensor Pulse Rhythm Regular Pulse Rhythm [Right Brachial] Regular Pulse Strength [Right Brachial] Normal Respiratory Rate 16 19 Respiratory Effort / Characteristics Non-Labored Spontaneous Non-Labored Spontaneous Respiratory Depth Normal Normal Respiratory Pattern Regular Blood Pressure 130/71 Blood Pressure [Left Arm] 134/72 Blood Pressure Mean 90 Blood Pressure Mean [Left Arm] 92 Blood Pressure Position [Left Arm] Lying Pulse Oximetry 97 97 Oxygen Delivery Method Room Air Room Air Oxygen Flow Rate Sepsis Recent Fever Within 48 Hours No Sepsis New/Unexplained Change in Mental Status No Sepsis Action Taken by Nursing No Action Required 07/01/22 19:15 07/01/22 19:20 07/01/22 19:30 Temperature Temperature Source Pulse Rate 74 65 69 Pulse Rate [Right Brachial] Pulse Rate from SpO2 Sensor 72 66 69 Pulse Rhythm Pulse Rhythm [Right Brachial] Pulse Strength [Right Brachial] Respiratory Rate 18 29 H 16 Respiratory Effort / Characteristics Respiratory Depth Respiratory Pattern Blood Pressure Blood Pressure [Left Arm] Blood Pressure Mean Blood Pressure Mean [Left Arm] Blood Pressure Position [Left Arm] Pulse Oximetry 97 96 93 Oxygen Delivery Method Oxygen Flow Rate Sepsis Recent Fever Within 48 Hours Sepsis New/Unexplained Change in Mental Status Sepsis Action Taken by Nursing 07/01/22 19:40 07/01/22 19:50 07/01/22 20:00 Temperature Temperature Source Pulse Rate 68 72 Pulse Rate [Right Brachial] Pulse Rate from SpO2 Sensor 67 72 Pulse Rhythm Pulse Rhythm [Right Brachial] Pulse Strength [Right Brachial] Respiratory Rate 18 18 Respiratory Effort / Characteristics Respiratory Depth Respiratory Pattern Blood Pressure 122/105 H Blood Pressure [Left Arm] Blood Pressure Mean 110 Blood Pressure Mean [Left Arm] Blood Pressure Position [Left Arm] Pulse Oximetry 96 95 Oxygen Delivery Method Oxygen Flow Rate Sepsis Recent Fever Within 48 Hours Sepsis New/Unexplained Change in Mental Status Sepsis Action Taken by Nursing 07/01/22 20:00 07/01/22 20:17 07/01/22 20:10 Temperature Temperature Source Pulse Rate 73 59 L 61 Pulse Rate [Right Brachial] Pulse Rate from SpO2 Sensor 74 62 Pulse Rhythm Pulse Rhythm [Right Brachial] Pulse Strength [Right Brachial] Respiratory Rate 22 20 16 Respiratory Effort / Characteristics Respiratory Depth Respiratory Pattern Blood Pressure Blood Pressure [Left Arm] Blood Pressure Mean Blood Pressure Mean [Left Arm] Blood Pressure Position [Left Arm] Pulse Oximetry 96 95 85 L Oxygen Delivery Method Nasal Cannula Oxygen Flow Rate 3 Sepsis Recent Fever Within 48 Hours Sepsis New/Unexplained Change in Mental Status Sepsis Action Taken by Nursing 07/01/22 20:20 07/01/22 20:30 07/01/22 20:30 Temperature Temperature Source Pulse Rate 62 66 Pulse Rate [Right Brachial] Pulse Rate from SpO2 Sensor 61 66 Pulse Rhythm Pulse Rhythm [Right Brachial] Pulse Strength [Right Brachial] Respiratory Rate 13 12 Respiratory Effort / Characteristics Respiratory Depth Respiratory Pattern Blood Pressure 122/66 Blood Pressure [Left Arm] Blood Pressure Mean 84 Blood Pressure Mean [Left Arm] Blood Pressure Position [Left Arm] Pulse Oximetry 93 93 Oxygen Delivery Method Oxygen Flow Rate Sepsis Recent Fever Within 48 Hours Sepsis New/Unexplained Change in Mental Status Sepsis Action Taken by Nursing 07/01/22 20:40 07/01/22 20:50 07/01/22 21:00 Temperature Temperature Source Pulse Rate 69 73 Pulse Rate [Right Brachial] Pulse Rate from SpO2 Sensor 68 72 Pulse Rhythm Pulse Rhythm [Right Brachial] Pulse Strength [Right Brachial] Respiratory Rate 19 21 Respiratory Effort / Characteristics Respiratory Depth Respiratory Pattern Blood Pressure 124/71 Blood Pressure [Left Arm] Blood Pressure Mean 88 Blood Pressure Mean [Left Arm] Blood Pressure Position [Left Arm] Pulse Oximetry 96 92 Oxygen Delivery Method Oxygen Flow Rate Sepsis Recent Fever Within 48 Hours Sepsis New/Unexplained Change in Mental Status Sepsis Action Taken by Nursing 07/01/22 21:00 07/01/22 21:10 07/01/22 21:20 Temperature Temperature Source Pulse Rate 70 70 75 Pulse Rate [Right Brachial] Pulse Rate from SpO2 Sensor 70 70 74 Pulse Rhythm Pulse Rhythm [Right Brachial] Pulse Strength [Right Brachial] Respiratory Rate 18 21 17 Respiratory Effort / Characteristics Respiratory Depth Respiratory Pattern Blood Pressure Blood Pressure [Left Arm] Blood Pressure Mean Blood Pressure Mean [Left Arm] Blood Pressure Position [Left Arm] Pulse Oximetry 91 92 96 Oxygen Delivery Method Oxygen Flow Rate Sepsis Recent Fever Within 48 Hours Sepsis New/Unexplained Change in Mental Status Sepsis Action Taken by Nursing 07/01/22 21:30 07/01/22 21:30 07/01/22 21:40 Temperature Temperature Source Pulse Rate 65 65 Pulse Rate [Right Brachial] Pulse Rate from SpO2 Sensor 64 66 Pulse Rhythm Pulse Rhythm [Right Brachial] Pulse Strength [Right Brachial] Respiratory Rate 23 14 Respiratory Effort / Characteristics Respiratory Depth Respiratory Pattern Blood Pressure 115/73 Blood Pressure [Left Arm] Blood Pressure Mean 87 Blood Pressure Mean [Left Arm] Blood Pressure Position [Left Arm] Pulse Oximetry 94 91 Oxygen Delivery Method Oxygen Flow Rate Sepsis Recent Fever Within 48 Hours Sepsis New/Unexplained Change in Mental Status Sepsis Action Taken by Nursing 07/01/22 21:50 07/01/22 22:00 07/01/22 22:00 Temperature Temperature Source Pulse Rate 63 70 Pulse Rate [Right Brachial] Pulse Rate from SpO2 Sensor 63 70 Pulse Rhythm Pulse Rhythm [Right Brachial] Pulse Strength [Right Brachial] Respiratory Rate 12 17 Respiratory Effort / Characteristics Respiratory Depth Respiratory Pattern Blood Pressure 118/80 Blood Pressure [Left Arm] Blood Pressure Mean 92 Blood Pressure Mean [Left Arm] Blood Pressure Position [Left Arm] Pulse Oximetry 91 95 Oxygen Delivery Method Oxygen Flow Rate Sepsis Recent Fever Within 48 Hours Sepsis New/Unexplained Change in Mental Status Sepsis Action Taken by Nursing VITAL SIGNS - Vital signs and triage nursing notes were reviewed. Stable and afebrile. GENERAL -57-year-old female appearing her stated age who is in no acute distress. Communicates well with provider and answers questions appropriately. SKIN - Without rashes. No meningeal or petechial rash. HEAD - NC/AT. EYES - Sclera anicteric. NOSE - Midline and without cyanosis. No epistaxis or purulent drainage noted. MOUTH/OROPHARYNX - Without perioral cyanosis. NECK - Neck with FROM. No nuchal rigidity. LUNGS - CTA CARDIAC - RRR ABDOMEN - Abdominal contour normal without pulsations or visible masses. No guarding. NEUROLOGIC - Cranial nerves grossly intact. PSYCH - A&O, and cooperates fully with examiner. Pt is very pleasant and interacts well with examiner. Course Administered Medications Discontinued Medications Hydromorphone HCl (Hydromorphone Inj 0.5 Mg/0.5 Ml Syr) 0.5 mg IV NOW STA Stop: 07/01/22 19:53 Last Admin: 07/01/22 20:02 Dose: 0.5 mg Documented By: KELY Hydromorphone HCl (Hydromorphone Inj 0.5 Mg/0.5 Ml Syr) 0.25 mg IV NOW STA Stop: 07/01/22 21:52 Last Admin: 07/01/22 22:01 Dose: 0.25 mg Documented By: KELY Sodium Chloride (Nss 1000ml) 500 mls @ 500 mls/hr IV .Q1H ONE Stop: 07/01/22 19:17 Last Infusion: 07/01/22 19:51 Dose: 0 mls/hr Documented By: Admin: 07/01/22 18:38 Dose: 500 mls/hr Documented By: KELY Ciprofloxacin (Cipro / D5w) 400 mg in 200 mls @ 100 mls/hr IV NOW STA; Protocol Stop: 07/01/22 22:46 Last Infusion: 07/01/22 23:06 Dose: 0 mls/hr Documented By: Admin: 07/01/22 20:57 Dose: 100 mls/hr Documented By: KELY Morphine Sulfate (Morphine Sulfate 4 Mg/Ml 1 Ml Carp\\Vial) 4 mg IV NOW STA Stop: 07/01/22 18:19 Last Admin: 07/01/22 18:41 Dose: 4 mg Documented By: KELY Morphine Sulfate (Morphine Sulfate 4 Mg/Ml 1 Ml Carp\\Vial) 4 mg IV NOW STA Stop: 07/01/22 19:11 Last Admin: 07/01/22 19:13 Dose: 4 mg Documented By: KELY Ondansetron HCl (Ondansetron Inj 2 Mg/Ml 2 Ml Vial) 4 mg IV NOW STA Stop: 07/01/22 18:19 Last Admin: 07/01/22 18:39 Dose: 4 mg Documented By: KELY Ondansetron HCl (Ondansetron Inj 2 Mg/Ml 2 Ml Vial) 4 mg IV NOW STA Stop: 07/01/22 19:53 Last Admin: 07/01/22 20:00 Dose: 4 mg Documented By: KELY Medical Decision Making Laboratory Data 07/01/22 18:38 07/01/22 18:38 Lab Results 07/01/22 07/01/22 07/01/22 Range/Units 18:35 18:38 18:38 WBC 8.10 (4.8-10.8) K/ul RBC 4.25 (4.20-5.40) M/uL Hgb 13.6 (12.0-16.0) g/dl Hct 40.6 (37.0-47.0) % MCV 95.5 (80.0-100.0) fL MCH 32.0 (25.0-34.0) pg MCHC 33.5 (32.0-36.0) g/dL RDW Std Deviation 46.3 (36.4-46.3) fL RDW Coeff of [place] 13.2 (11.5-14.5) % Plt Count 168 (130-400) K/uL MPV 11.0 (9.4-12.4) fL Immature Gran % (Auto) 0.4 % Neut % (Auto) 69.0 % Lymph % (Auto) 16.8 % [place] % (Auto) 10.9 % Eos % (Auto) 2.3 % Baso % (Auto) 0.6 % Neut # (Auto) 5.59 (1.40-6.50) K/uL Lymph # (Auto) 1.36 (1.2-3.4) K/uL [place] # (Auto) 0.88 H (0.11-0.59) K/uL Eos # (Auto) 0.19 (0-0.50) K/uL Baso # (Auto) 0.05 (0-0.2) K/uL Immature Gran # (Auto) 0.03 (0.01-0.20) K/uL Sodium 137 (136-145) mmol/L Potassium 4.4 (3.5-5.1) mmol/L Chloride 105 (98-107) mmol/L Carbon Dioxide 27 (21-32) mmol/L Anion Gap 5 (3-11) BUN 33 H (6-23) mg/dl Creatinine 1.21 H (0.6-1.2) mg/dl Est Cr Clr Drug Dosing 55.3 ml/min Est GFR ( Amer) 57.1 ml/min Est GFR (Non-Af Amer) 49.3 ml/min BUN/Creatinine Ratio 27.3 H (10-20) Glucose 97 (70-99(Fasting)) mg/dl Calcium 9.4 (8.5-10.1) mg/dl Total Bilirubin 0.5 (0.2-1.0) mg/dl AST 30 (13-39) U/L ALT 49 (7-52) U/L Alkaline Phosphatase 78 (34-104) U/L Total Protein 6.7 (6.0-8.3) gm/dl Albumin 4.1 (3.4-5.0) gm/dl Globulin 2.6 (2.5-4.0) gm/dl Albumin/Globulin Ratio 1.6 (0.9-2) Procalcitonin Cancelled Urine Color Urine Appearance (Clear) Urine pH (4.5-7.5) Ur Specific [place] (1.000-1.030) Urine Protein (Negative) Urine Glucose (UA) (Negative) Urine Ketones (Negative) Urine Blood (Negative) Urine Nitrite (Negative) Urine Bilirubin (Negative) Urine Urobilinogen (Negative) Ur Leukocyte Esterase (Negative) Urine WBC (Auto) (0-5) /hpf Urine RBC (Auto) (0-4) /hpf U Hyaline Cast (Auto) (0-5) /lpf U Epithel Cells (Auto) (0-5) /lpf Urine Bacteria (Auto) (Negative) Urine Mucus (None Prsent) SARS-CoV-2, RNA, NAAT (NEGATIVE) 07/01/22 07/01/22 07/01/22 Range/Units 18:45 20:15 20:59 WBC (4.8-10.8) K/ul RBC (4.20-5.40) M/uL Hgb (12.0-16.0) g/dl Hct (37.0-47.0) % MCV (80.0-100.0) fL MCH (25.0-34.0) pg MCHC (32.0-36.0) g/dL RDW Std Deviation (36.4-46.3) fL RDW Coeff of [place] (11.5-14.5) % Plt Count (130-400) K/uL MPV (9.4-12.4) fL Immature Gran % (Auto) % Neut % (Auto) % Lymph % (Auto) % [place] % (Auto) % Eos % (Auto) % Baso % (Auto) % Neut # (Auto) (1.40-6.50) K/uL Lymph # (Auto) (1.2-3.4) K/uL [place] # (Auto) (0.11-0.59) K/uL Eos # (Auto) (0-0.50) K/uL Baso # (Auto) (0-0.2) K/uL Immature Gran # (Auto) (0.01-0.20) K/uL Sodium (136-145) mmol/L Potassium (3.5-5.1) mmol/L Chloride (98-107) mmol/L Carbon Dioxide (21-32) mmol/L Anion Gap (3-11) BUN (6-23) mg/dl Creatinine (0.6-1.2) mg/dl Est Cr Clr Drug Dosing ml/min Est GFR ( Amer) ml/min Est GFR (Non-Af Amer) ml/min BUN/Creatinine Ratio (10-20) Glucose (70-99(Fasting)) mg/dl Calcium (8.5-10.1) mg/dl Total Bilirubin (0.2-1.0) mg/dl AST (13-39) U/L ALT (7-52) U/L Alkaline Phosphatase (34-104) U/L Total Protein (6.0-8.3) gm/dl Albumin (3.4-5.0) gm/dl Globulin (2.5-4.0) gm/dl Albumin/Globulin Ratio (0.9-2) Procalcitonin < 0.05 Urine Color Red Urine Appearance Cloudy A (Clear) Urine pH 5.0 (4.5-7.5) Ur Specific [place] 1.031 H (1.000-1.030) Urine Protein 2+ H (Negative) Urine Glucose (UA) Negative (Negative) Urine Ketones Negative (Negative) Urine Blood 3+ H (Negative) Urine Nitrite Positive A (Negative) Urine Bilirubin 1+ H (Negative) Urine Urobilinogen Negative (Negative) Ur Leukocyte Esterase 1+ H (Negative) Urine WBC (Auto) >30 H (0-5) /hpf Urine RBC (Auto) >30 H (0-4) /hpf U Hyaline Cast (Auto) 0 (0-5) /lpf U Epithel Cells (Auto) >30 H (0-5) /lpf Urine Bacteria (Auto) Negative (Negative) Urine Mucus Present A (None Prsent) SARS-CoV-2, RNA, NAAT NEGATIVE (NEGATIVE) Imaging Data Radiologist's Impression: CT of abd/pelvis performed earlier today: Mild left-sided hydroureteronephrosis secondary to an obstructing 6 mm calculus of the proximal left ureter at the level of L2-L3. MDM Narrative Patient was seen and evaluated as above in room B04. Review was performed of triage nursing notes and vital signs. I did review the patient's urology visit from earlier today. After obtaining a thorough history and physical examination the above work up was performed. Patient presents to us today for evaluation of abdominal pain with a known 6 mm obstructing calculus on the left that was identified by CT imaging that was performed earlier today. She clinically is well-appearing but does appear to be in pain and is vomiting. Options of care were discussed with the patient. IV access was established. Labs were drawn. There is no leukocytosis or concerning anemia. No emergent metabolic disturbance. Evidence of mild dehydration with BUN of 33 and creatinine of 1.21. Procalcitonin within normal limits. Urinalysis reveals potential for infection versus contaminated sample. COVID testing negative. At this time with the patient requiring several antiemetics and analgesics I did find it reasonable to discuss the presentation with the urologic provider that also came to evaluate the patient as well as the hospitalist service. Patient will be admitted by the medicine service for further evaluation and management. As the patient is currently on ciprofloxacin I did elect to provide an IV dose here. It was felt that the benefit outweighed risk. Blood cultures also pending. Please refer to further documentation regarding her stay. GCS: 15 In the evaluation and treatment of this patient the following differential diagn oses were entertained: UTI, pyelonephritis, sepsis, obstructing calculus, bowel obstruction, diverticulitis, among others. Impression & Plan Left ureteral calculus, Hydroureteronephrosis Discharge Plan Visit Data Chief Complaint: Abdominal Pain Stated Complaint: ABDOMINAL PAIN ED Provider: Jorge Lopez ED Midlevel Provider: Ross Villanueva Discharge Problem: Left ureteral calculus, Hydroureteronephrosis Patient Disposition: Admitted As Inpatient Condition: Good Discharge Instructions Interventions: ED Discharge Assessment Last Done: 07/01/22 23:06
[2022-07-01 19:04] LABS: Albumin Globulin Ratio 1.6 (0.9-2); Albumin Level 4.1 gm/dl (3.4-5.0); BUN Creatinine Ratio 27.3 (10-20); Bilirubin,Total 0.5 mg/dl (0.2-1.0); Calcium 9.4 mg/dl (8.5-10.1); Creatinine Clr Calc Pharmacy 55.3 ml/min; Est GFR (African American) 57.1 ml/min; Est GFR (Non-African American) 49.3 ml/min; Globulin 2.6 gm/dl (2.5-4.0); Potassium 4.4 mmol/L (3.5-5.1); Total Protein 6.7 gm/dl (6.0-8.3)
[2022-07-01 19:14] LABS: Basophils # (auto) 0.05 K/uL (0-0.2); Basophils % (auto) 0.6 %; Eosinophils # (auto) 0.19 K/uL (0-0.50); Eosinophils % (auto) 2.3 %; Hematocrit (blood only) 40.6 % (37.0-47.0); Hemoglobin 13.6 g/dl (12.0-16.0); Immature Granulocytes # (auto) 0.03 K/uL (0.01-0.20); Immature Granulocytes % (auto) 0.4 %; Lymphocytes # (auto) 1.36 K/uL (1.2-3.4); Lymphocytes % (auto) 16.8 %; Mean Corpuscular Hgb Conc 33.5 g/dL (32.0-36.0); Mean Corpuscular Volume 95.5 fL (80.0-100.0); Monocytes # (auto) 0.88 K/uL (0.11-0.59); Monocytes % (auto) 10.9 %; Neutrophils # (auto) 5.59 K/uL (1.40-6.50); Platelet Count 168 K/uL (130-400); RDW Coefficient of Variation 13.2 % (11.5-14.5); RDW Standard Deviation 46.3 fL (36.4-46.3); Red Blood Count 4.25 M/uL (4.20-5.40)
[2022-07-01 19:14] LABS: Appearance Urine Cloudy (Clear); Color Urine Red
[2022-07-01 19:19] LABS: Bacteria Urine Automated Negative (Negative); Blood Urine 3+ (Negative); Epithelial Cell Urine Auto >30 /lpf (0-5); Glucose Urine UA Negative (Negative); Ketones Urine Negative (Negative); Leukocyte Esterase Urine 1+ (Negative); Nitrite Urine Positive (Negative); Protein Urine 2+ (Negative); RBC Urine Automated >30 /hpf (0-4); Specific Gravity Urine 1.031 (1.000-1.030); Urobilinogen Urine Negative (Negative); WBC Urine Automated >30 /hpf (0-5)
[2022-07-01 19:20] LABS: Bilirubin Urine 1+ (Negative)
[2022-07-01 19:43] LABS: Cast Urine Automated 0 /lpf (0-5); Mucus Urine Present (None Prsent)
[2022-07-01] MEDS ORDERED: HYDROmorphone INJ 0.5 MG/0.5 ML SYR IV STA ×2 (19:52→21:51)
--- NOTE | 2022-07-01 20:25 | Urology Consultation ---
Date of Consultation July 01, 2022 Assessment & Plan (1) Hematuria: (2) Nephrolithiasis: I discussed with the treating clinician in the emergency department. The patient is being admitted on the hospitalist service. We recommend proceeding as follows: Provide analgesics Provide antiemetics Provide IV fluid for hydration Consider initiating Flomax for expulsive therapy Due to concern for urinary tract infection a urine culture has been sent. Would also recommend initiating antibiotics which can be further tailored based on culture results Would recommend implementing n.p.o. status. I discussed with the patient that due to the size of a kidney stone she may require cystoscopy with possible intervention. At the present time would not feel she needs an urgent operation and she is normotensive without tachycardia and does not exhibit leukocytosis or fever. Additional recommendations be forthcoming based on her clinical course as it unfolds History of Present Illness Reason for Consultation: Hematuria and nephrolithiasis History of Present Illness This is a 57-year-old female who has been having ongoing back pain she reports for approximately 1 week. She notes that the pain initially was not that bad but got progressively worse over the past week and she developed hematuria. She notes that she has significant pain greatest in the left flank with some radiation to her abdomen. She denies any urinary frequency or urgency and denies any dysuria. She also developed hematuria this weekend as noted above and she notes that it was dark red blood without any visible clots. She has not had any fevers, shakes, or chills. She denies any nausea or vomiting. Patient says that she has never had any intervention for kidney stones in the past. Because of her symptomatology she was seen in the urology office today where a CT scan of the abdomen pelvis was ordered. Patient did have a CT scan performed as an outpatient. This showed the patient had mild left-sided hydronephrosis secondary to an obstructing 6 mm kidney stone in the proximal left ureter. Patient was noted to have some ongoing symptoms due to the findings on the CAT scan she was referred to the emergency department for further evaluation. Since arrival to the hospital the patient has had labs and imaging which independent reviewed. CBC revealed white blood cell count, hemoglobin, hematocrit, and platelet count were all within the normal range. Chemistry profile showed sodium and potassium are within normal range. Her BUN and creatinine were both slightly elevated at 33 and 1.2. There is no elevation of LFTs. Urinalysis was indicative and concerning for infection as the patient was positive for nitrites and 1+ leukocyte Estrace. There were greater than 30 white blood cells per high-power field but no bacteria. A COVID test was pending. At the time of my interview the patient was noted to be normotensive without tachycardia or fever. She was in no distress. Allergies Allergy/AdvReac Type Severity Reaction Status Date / Time Iodinated Contrast Media Allergy Intermediate hives Verified 07/01/22 12:13 Penicillins Allergy Intermediate mouth sores Verified 07/01/22 12:13 vaccine adjuvant system, Allergy Intermediate ARM Verified 07/01/22 12:13 AS01B liposomal SWELLED UP [From Shingrix (PF)] varicella-zoster virus Allergy Intermediate ARM Verified 07/01/22 12:13 glycoprotein E, recombinant SWELLED UP [From Shingrix (PF)] latex Allergy Mild Redness of Verified 07/01/22 12:13 Skin citalopram AdvReac Mild headache Verified 07/01/22 12:13 Home Medications Medication Instructions Recorded Confirmed Type calcium carbonate 600 mg calcium 600 mg PO BID 08/12/18 07/01/22 History (1,500 mg) tablet (Calcium) multivitamin 1 tab PO QAM 08/12/18 07/01/22 History cholecalciferol (vitamin D3) 25 1,000 unit PO DAILY 12/18/18 07/01/22 History mcg (1,000 unit) tablet (Vitamin D3) omega 7-fra-zzy-fish oil 1,000 mg 1 cap PO QAM 04/11/20 07/01/22 History (120 mg-180 mg) capsule (Fish Oil) bupropion HCl 150 mg tablet,12 hr 150 mg PO BID #90 ea 01/23/21 07/01/22 Rx sustained-release fluticasone propionate 50 2 spray intranasal BID PRN allergy 06/04/21 07/01/22 Rx mcg/actuation nasal symptoms #16 grams spray,suspension clonazepam 1 mg tablet (Klonopin) 0.5 mg PO HS 09/26/21 07/01/22 History apixaban 5 mg tablet 5 mg PO BID #60 tabs 10/08/21 07/01/22 Rx ascorbic acid (vitamin C) 1,000 mg 1 g PO DAILY 07/01/22 07/01/22 History tablet (Vitamin C) budesonide-formoterol HFA 160 2 puff inhalation BID PRN 07/01/22 07/01/22 Histo ry mcg-4.5 mcg/actuation aerosol Shortness Of Breath Or Wheezing inhaler (Symbicort) ciprofloxacin HCl 500 mg tablet 500 mg PO Q12 07/01/22 07/01/22 History famotidine 20 mg tablet 20 mg PO BID 07/01/22 07/01/22 History linaclotide 72 mcg capsule 72 mcg PO DAILYBB 07/01/22 07/01/22 History (Linzess) mirtazapine 15 mg tablet 15 mg PO HS 07/01/22 07/01/22 History pantoprazole 40 mg tablet,delayed 40 mg PO HS 07/01/22 07/01/22 History release (Protonix) sertraline 100 mg tablet 150 mg PO QAM 07/01/22 07/01/22 History tamsulosin 0.4 mg capsule (Flomax) 0.4 mg PO QPM #30 caps 07/01/22 07/01/22 Rx tramadol 50 mg tablet 50 mg PO BID PRN pain #10 tabs 07/01/22 07/01/22 Rx trazodone 100 mg tablet 200 mg PO HS 07/01/22 07/01/22 History zinc acetate 50 mg (zinc) capsule 50 mg PO DAILY 07/01/22 07/01/22 History Patient History Medical History Anxiety and depression Arthritis Chronic back pain Chronic low back pain Deep vein thrombosis ARM DX> 2014 LLE DX>2009>UNSURE OF REASON/TAKING ELIQUIS GERD (gastroesophageal reflux disease) History of COVID-19 07/2020>SINUS CONGESTION/FEVER/FATIGUE/LOSS OF TASTE AND SMELL *TASTE STILL IS NOT BACK TO NORMAL History of endometriosis History of IBS Hx of migraines Hx of skin cancer, basal cell Kidney stones Lumbar facet joint syndrome Myofascial pain Polydipsia Post traumatic stress disorder Restless leg syndrome Sarcoidosis EFFECTING LUNG Surgical History H/O partial thyroidectomy BENIGN NODULE REMOVED History of anesthesia reaction DIZZINESS History of arthroscopy of knee LEFT History of bronchoscopy History of colonoscopy (~2018) History of elbow surgery LEFT History of esophagogastroduodenoscopy (EGD) (~2018) History of hysterectomy with unilateral oophorectomy W/APPENDECTOMY History of sleeve gastrectomy History of tubal ligation S/P laparoscopic cholecystectomy (~2019) Family History Sister Graves disease Family history of diabetes mellitus Mother Family history of diabetes mellitus Father Family history of diabetes mellitus Other Diabetes Hypertension No family history of adverse response to anesthesia Denies family history of Ovarian cancer Prostate cancer Myocardial infarction Breast cancer Colorectal cancer Social History Smoking Status: Never smoker Second Hand Exposure: Yes ( A CHILD); Hx Alcohol Use: No Hx Substance Use: No Preferred Language: Luxembourgish Communication Ability: Effective Visual Impairment: No Limitations House Mover Required: No Beliefs That Will Affect Care: None marital status: Current Living Situation: Family Current Living Situation Comment: LIVES WITH MOTHER, , 2 DAUGHTERS AND GRANDSON How many Children do You have: 2 Other Information That Helps Us Care for You: No Feels Safe at Home: Yes Safety Concerns: Feels Safe At This Time Childhood Exposure to Second-Hand Smoke: Yes caffeine: Yes Dental Care, Regularly: Yes Physical Activity Frequency: Daily Seatbelt Use: always Sunscreen Use: No Assistive Devices: None Review of Systems Constitutional: no fever and no chills Eyes: no diplopia Ear, Nose, Mouth, Throat: no ear pain Respiratory: no cough and no dyspnea Cardiovascular: no chest pain Gastrointestinal: + abdominal pain; no nausea and no vomiting Genitourinary: as per Subjective / HPI Musculoskeletal: + back pain (Left flank pain) Integumentary: no rash Neurologic: no localized weakness Physical Exam Constitutional: WD/WN, vitals as above Eyes: no conjunctival abnormality ENMT: Ears: no hearing impairment and no external ear abnormality Mouth: no oropharynx abnormality Neck: trachea midline Respiratory: normal respiratory effort; no respiratory distress and no labored breathing Cardiovascular: Rate/Rhythm: regular rate and regular rhythm Vessels: dorsalis pedis pulses present Gastrointestinal (Abdomen): Abdomen is soft, nonrigid, nondistended. There is no rebound tenderness or guarding. Musculoskeletal: No calf tenderness, feet are warm and well-perfused Skin: no rashes Neurologic: moves all extremities Psychiatric: A+Ox3, euthymic affect Genitourinary: + CVA tenderness (Noted bilaterally, left greater than right) Results & Data ([facility]) Vital Signs (Past 12 Hours) Vital Signs Temp Pulse Pulse Resp BP BP Pulse Ox 07/01/22 20:17 59 L 20 95 07/01/22 20:00 73 22 96 07/01/22 20:00 122/105 H 07/01/22 19:50 72 18 95 07/01/22 19:40 68 18 96 07/01/22 19:30 69 16 93 07/01/22 19:20 65 29 H 96 07/01/22 19:15 74 18 97 07/01/22 19:18 69 07/01/22 19:15 71 19 134/72 97 07/01/22 17:52 36.7 C 80 16 130/71 97 O2 Del Method O2 Flow Rate 07/01/22 20:17 Nasal Cannula 3 07/01/22 20:00 07/01/22 20:00 07/01/22 19:50 07/01/22 19:40 07/01/22 19:30 07/01/22 19:20 07/01/22 19:15 07/01/22 19:18 07/01/22 19:15 Room Air 07/01/22 17:52 Room Air PG Care Time/CCT Total # of Minutes Spent Total Time Spent with Patient: Total time spent is greater than 50% in coordination of care (as documented) at patient's floor/unit and/or counseling patient: Coding Level of Care Code 30434 INT INP/OBS CARE 3/75MIN Diagnoses Hematuria R31.9 Nephrolithiasis N20.0
[2022-07-01] MEDS ORDERED: CIPROFLOXACIN / D5W 400 MG/200 ML BAG IV STA (20:47)
--- NOTE | 2022-07-01 21:31 | History & Physical Report ---
Date of Service July 01, 2022 Assessment & Plan (1) Hematuria: Plan: -Symptoms likely secondary to obstructive uropathy, currently hemodynamically stable -CTAP findings- mild L sided hydroureteronephrosis w/ obstructing 6mm calculus of proximal L ureter at L2-L3 -Urology consulted- recommend symptom management in interim and possible cystoscopy in AM given stone size -Zofran PRN nausea, pain regimen- Tylenol PRN, morphine PRN, Dilaudid PRN -Continue NSS IVF at maintenance -Flomax initiated (2) Urinary tract infection: Plan: -UA with bacteria, leukocyte esterase, nitrites -UCx, BCx pending -Continue ciprofloxacin, narrow per sensitivities (3) Pulmonary embolism: Plan: -Previous history of DVTs and PE -Holding home Eliquis for potential OR procedure in AM -SCDs in interim for VTE prophylaxis (4) Anxiety and depression: Plan: -Continue home Wellbutrin, mirtazapine, Zoloft, trazodone, clonazepam (5) GERD (gastroesophageal reflux disease): Plan: -Home pantoprazole, famotidine converted to IV for NPO status Plan FENGI: NPO except medications Code status: Full DVT ppx: SCDs, holding home Eliquis Isolation: None Dispo: Medical/surgical History of Present Illness Chief Complaint: Abdominal pain Primary Care Provider: SHELLEY Nichole 57 yo F with PMH DVTs and PE now on Eliquis, multiple nephro/ureterolithiasis requiring lithotripsy presenting with abdominal pain. Pt states she has experienced worsening lower back pain for 1 week and painless dark hematuria beginning on 06/29. She went to urgent care and was diagnosed with UTI, started on ciprofloxacin. Hematuria continued to occur intermittently with evolving pain of left flank with radiation to abdomen. Denies fever, chills, nausea/vomiting/diarrhea. She was seen in outpatient urology today with instruct ions for conservative management but was advised to go to ED due to worsening pain and CTAP findings of 6mm stone in proximal L ureter. Pt arrived hemodynamically stable to ED. CBC unremarkable, BUN/Cr at 33/1.2. UA concerning for infection. ER course- Zofran 4mg x2, morphine 4mg x2, Dilaudid 0.5mg x1, NSS IVF 500ccs, started on ciprofloxacin. On my evaluation, she notes her pain at 4/10 and diffusely over the abdomen with greatest pain in L flank. Denies systemic symptoms. Allergies Allergy/AdvReac Type Severity Reaction Status Date / Time Iodinated Contrast Media Allergy Intermediate hives Verified 07/01/22 12:13 Penicillins Allergy Intermediate mouth sores Verified 07/01/22 12:13 vaccine adjuvant system, Allergy Intermediate ARM Verified 07/01/22 12:13 AS01B liposomal SWELLED UP [From Shingrix (PF)] varicella-zoster virus Allergy Intermediate ARM Verified 07/01/22 12:13 glycoprotein E, recombinant SWELLED UP [From Shingrix (PF)] latex Allergy Mild Redness of Verified 07/01/22 12:13 Skin citalopram AdvReac Mild headache Verified 07/01/22 12:13 Home Medications Medication Instructions Recorded Confirmed Type calcium carbonate 600 mg calcium 600 mg PO BID 08/12/18 07/01/22 History (1,500 mg) tablet (Calcium) multivitamin 1 tab PO QAM 08/12/18 07/01/22 History cholecalciferol (vitamin D3) 25 1,000 unit PO DAILY 12/18/18 07/01/22 History mcg (1,000 unit) tablet (Vitamin D3) omega 9-bfa-ptm-fish oil 1,000 mg 1 cap PO QAM 04/11/20 07/01/22 History (120 mg-180 mg) capsule (Fish Oil) bupropion HCl 150 mg tablet,12 hr 150 mg PO BID #90 ea 01/23/21 07/01/22 Rx sustained-release fluticasone propionate 50 2 spray intranasal BID PRN allergy 06/04/21 07/01/22 Rx mcg/actuation nasal symptoms #16 grams spray,suspension clonazepam 1 mg tablet (Klonopin) 0.5 mg PO HS 09/26/21 07/01/22 History apixaban 5 mg tablet 5 mg PO BID #60 tabs 10/08/21 07/01/22 Rx ascorbic acid (vitamin C) 1,000 mg 1 g PO DAILY 07/01/22 07/01/22 History tablet (Vitamin C) budesonide-formoterol HFA 160 2 puff inhalation BID PRN 07/01/22 07/01/22 History mcg-4.5 mcg/actuation aerosol Shortness Of Breath Or Wheezing inhaler (Symbicort) ciprofloxacin HCl 500 mg tablet 500 mg PO Q12 07/01/22 07/01/22 History famotidine 20 mg tablet 20 mg PO BID 07/01/22 07/01/22 History linaclotide 72 mcg capsule 72 mcg PO DAILYBB 07/01/22 07/01/22 History (Linzess) mirtazapine 15 mg tablet 15 mg PO HS 07/01/22 07/01/22 History pantoprazole 40 mg tablet,delayed 40 mg PO HS 07/01/22 07/01/22 History release (Protonix) sertraline 100 mg tablet 150 mg PO QAM 07/01/22 07/01/22 History tamsulosin 0.4 mg capsule (Flomax) 0.4 mg PO QPM #30 caps 07/01/22 07/01/22 Rx tramadol 50 mg tablet 50 mg PO BID PRN pain #10 tabs 07/01/22 07/01/22 Rx trazodone 100 mg tablet 200 mg PO HS 07/01/22 07/01/22 History zinc acetate 50 mg (zinc) capsule 50 mg PO DAILY 07/01/22 07/01/22 History Past Med/Surg History Medical History Anxiety and depression Arthritis Chronic back pain Chronic low back pain Deep vein thrombosis ARM DX> 2014 LLE DX>2009>UNSURE OF REASON/TAKING ELIQUIS GERD (gastroesophageal reflux disease) History of COVID-19 07/2020>SINUS CONGESTION/FEVER/FATIGUE/LOSS OF TASTE AND SMELL *TASTE STILL IS NOT BACK TO NORMAL History of endometriosis History of IBS Hx of migraines Hx of skin cancer, basal cell Kidney stones Lumbar facet joint syndrome Myofascial pain Polydipsia Post traumatic stress disorder Restless leg syndrome Sarcoidosis EFFECTING LUNG Surgical History H/O partial thyroidectomy BENIGN NODULE REMOVED History of anesthesia reaction DIZZINESS History of arthroscopy of knee LEFT History of bronchoscopy History of colonoscopy (~2017) History of elbow surgery LEFT History of esophagogastroduodenoscopy (EGD) (~2018) History of hysterectomy with unilateral oophorectomy W/APPENDECTOMY History of sleeve gastrectomy History of tubal ligation S/P laparoscopic cholecystectomy (~2018) Family History Sister Graves disease Family history of diabetes mellitus Mother Family history of diabetes mellitus Father Family history of diabetes mellitus Other Diabetes Hypertension No family history of adverse response to anesthesia Denies family history of Ovarian cancer Prostate cancer Myocardial infarction Breast cancer Colorectal cancer Social History Smoking Status: Never smoker Second Hand Exposure: Yes ( A CHILD); Hx Alcohol Use: No Hx Substance Use: No Preferred Language: Bhutanese Communication Ability: Effective Visual Impairment: No Limitations Lab Associate Required: No Beliefs That Will Affect Care: None marital status: Current Living Situation: Family Current Living Situation Comment: LIVES WITH MOTHER, , 2 DAUGHTERS AND GRANDSON How many Children do You have: 2 Other Information That Helps Us Care for You: No Feels Safe at Home: Yes Safety Concerns: Feels Safe At This Time Childhood Exposure to Second-Hand Smoke: Yes caffeine: Yes Dental Care, Regularly: Yes Physical Activity Frequency: Daily Seatbelt Use: always Sunscreen Use: No Assistive Devices: None Review of Systems Review of Systems: Per HPI Physical Exam Physical Exam: General: well-appearing, no acute distress, obese HEENT: moist mucous membranes, EOMI, PERRLA, no lymphadenopathy CV: RRR, normal S1 and S2, no murmurs Resp: CTAB, unlabored respirations Abd: soft, nondistended, +diffusely tender to mild palpation most pronounced in L flank, +CVA tenderness b/l MSK: normal muscle bulk and tone of 5/5 b/l UE and LE Neuro: no focal motor or sensory deficits Skin: no rashes, warm and dry Ext: no peripheral edema, capillary refill <2s Results & Data Results & Data ([facility]) Vital Signs (Past 12 Hours) Vital Signs Temp Pulse Pulse Resp BP BP Pulse Ox 07/01/22 21:10 70 21 92 07/01/22 21:00 70 18 91 07/01/22 21:00 124/71 07/01/22 20:50 73 21 92 07/01/22 20:40 69 19 96 07/01/22 20:30 66 12 93 07/01/22 20:30 122/66 07/01/22 20:20 62 13 93 07/01/22 20:10 61 16 85 L 07/01/22 20:17 59 L 20 95 07/01/22 20:00 73 22 96 07/01/22 20:00 122/105 H 07/01/22 19:50 72 18 95 07/01/22 19:40 68 18 96 07/01/22 19:30 69 16 93 07/01/22 19:20 65 29 H 96 07/01/22 19:15 74 18 97 07/01/22 19:18 69 07/01/22 19:15 71 19 134/72 97 07/01/22 17:52 36.7 C 80 16 130/71 97 O2 Del Method O2 Flow Rate 07/01/22 21:10 07/01/22 21:00 07/01/22 21:00 07/01/22 20:50 07/01/22 20:40 07/01/22 20:30 07/01/22 20:30 07/01/22 20:20 07/01/22 20:10 07/01/22 20:17 Nasal Cannula 3 07/01/22 20:00 07/01/22 20:00 07/01/22 19:50 07/01/22 19:40 07/01/22 19:30 07/01/22 19:20 07/01/22 19:15 07/01/22 19:18 07/01/22 19:15 Room Air 07/01/22 17:52 Room Air Supervising Physician Co-Signing Physician Notes Attending addendum: I have physically seen this patient, have supervised the medical residents activities, and agree with the H&P unless as otherwise noted. Assessment and Plan: 6 mm proximal left ureteral calculus/mild left hydroureteronephrosis- NPO Follow urine culture and sensitivity Cipro 400 mg IV every 12 hours Zofran 4 mg IV every 6 hours as needed Acetaminophen 650 mg every 6 hours as needed for mild pain or fever Morphine sulfate 4 mg IV every 4 hours as needed for moderate pain Dilaudid 0.5 mg IV every 4 hours as needed for severe pain NSS at 80 mils per hour Consult urology Pulmonary embolism history- Hold Eliquis for potential procedure in a.m. Anxiety and depression- Continue Wellbutrin, mirtazapine, Zoloft, trazodone and clonazepam GERD- Pantoprazole and famotidine changed from p.o. to IV as noted Remaining orders and notations as noted Resident Activity Tracking Resident Involvement: Resident Care Provided Care Provided: Adult Hospital Medicine (3) Pulmonary embolism Acute cor pulmonale presence: unspecified Chronicity: acute Pulmonary embolism type: unspecified Qualified Code(s): I26.99 - Other pulmonary embolism without acute cor pulmonale
[2022-07-01] MEDS ORDERED: FLUTICASONE PROPIONATE NA SPR 16 GM BTL PRN (23:24)
[2022-07-01] MEDS ORDERED: MoRPHine SULFATE 4 MG/ML 1 ML CARP\\VIAL IV PRN (23:24)
[2022-07-01] MEDS ORDERED: HYDROmorphone INJ 0.5 MG/0.5 ML SYR IV PRN (23:24)
[2022-07-01] MEDS ORDERED: FLUTICASONE/VILANTEROL 200/25MCG 14 PUFFS/INHALER INH PRN (23:37)
[2022-07-01] MEDS: SODIUM CHLORIDE 0.9% 1000ML 1,000 ML IV SCH (23:46)
[2022-07-02] MEDS: TAMSULOSIN HCL 0.4 MG CAP PO SCH ×2 (00:42→22:29)
[2022-07-02] MEDS: ONDANSETRON INJ 2 MG/ML 2 ML VIAL IV PRN (03:22)
[2022-07-02] MEDS: HYDROmorphone INJ 0.5 MG/0.5 ML SYR IV PRN ×3 (04:19→19:51)
[2022-07-02] MEDS: ACETAMINOPHEN 325 MG TAB PO PRN ×2 (08:01→17:46)
[2022-07-02] MEDS: CIPROFLOXACIN / D5W 200 MG/100 ML BAG IV SCH ×2 (08:02→22:28)
[2022-07-02] MEDS: SERTRALINE HCL 50 MG TABLET PO SCH (08:02)
[2022-07-02] MEDS: buPROPion SR 150 MG TABCR PO SCH ×2 (08:02→16:47)
[2022-07-02] MEDS: FAMOTIDINE 20 MG in SYRINGE 3 ML IV SCH (08:03)
[2022-07-02 08:05] LABS: Hematocrit (blood only) 38.9 % (37.0-47.0); Hemoglobin 13.4 g/dl (12.0-16.0); Mean Corpuscular Hemoglobin 32.8 pg (25.0-34.0); Mean Corpuscular Hgb Conc 34.4 g/dL (32.0-36.0); Mean Corpuscular Volume 95.1 fL (80.0-100.0); Platelet Count 159 K/uL (130-400); RDW Coefficient of Variation 13.4 % (11.5-14.5); RDW Standard Deviation 47.2 fL (36.4-46.3); Red Blood Count 4.09 M/uL (4.20-5.40); White Blood Count 7.93 K/ul (4.8-10.8)
--- NOTE | 2022-07-02 08:17 | Urology Progress Note ---
Date of Service July 02, 2022 Assessment & Plan (1) Left ureteral calculus: (2) Hydroureteronephrosis: (3) Urinary tract infection: Plan: Follow-up of obstructing 6 mm left proximal ureteral stone, suspected UTI. Patient is afebrile and hemodynamically stable. Labs reviewed - creatinine pending, WBC 7.93, Hgb 13.4. UA on arrival was suggestive of infection with positive nitrates. Urine and blood cultures are pending. Continue IV antibiotics and narrow per sensitivities data when available. She continues to have significant left flank discomfort and nausea with dry heaves. Continue supportive care and medical management per primary team. We discussed concerns with suspected infection and obstructing ureteral stone. We discussed options for stone management including left ureteral stent placement today. Ureteral stents were discussed in detail. Expected clinical course reviewed including need for stone treatment in the future after infection has been treated. Patient is agreeable to surgical intervention, all questions answered. Findings reviewed with Dr. Ray. Given her hydronephrosis, renal colic, and concern for infection in the context of an obstructing 6 mm proximal ureteral stone, will proceed with OR for cystoscopy, Left retrograde pyelogram and Left stent placement. Risks and benefits to be reviewed with patient by Dr. Ray. OR notified. Will cover with scheduled IV Ciprofloxacin preoperatively. Keep NPO for procedure. Admission and Anticipated Discharge Date Admission Date: July 01, 2022 Supervising Physician Co-Signing Physician Notes agree with above. plan for left ureteral stent now. Subjective Patient seen and examined at bedside this AM. She is awake, alert and resting in bed. Continues to have left flank discomfort radiating to abdomen, currently 5/10 pain. She has nausea and dry heaves during my interview. Notes headache this am, no fever or chills. Voiding spontaneously. Hematuria, no dysuria. She is NPO. Review of Systems Constitutional: as per Subjective / HPI Respiratory: no dyspnea Cardiovascular: no chest pain Gastrointestinal: as per Subjective / HPI Genitourinary: as per Subjective / HPI Physical Exam Constitutional: well developed and well nourished; no acute distress and not ill appearing Neck: normal visual inspection Respiratory: normal respiratory effort and able to speak in complete sentences; no respiratory distress and no labored breathing Cardiovascular: Extremities: no pedal edema Gastrointestinal (Abdomen): Inspection/Auscultation: abdomen normal to inspection; abdomen not distended Percussion/Palpation: abdomen soft; abdomen nontender and no guarding Musculoskeletal: Head/Neck/Chest: normocephalic and head atraumatic Neurologic: moves all extremities and awake Psychiatric: Orientation: alert, oriented x 3 and cooperative Eye Contact: good eye contact Genitourinary: mildly tender to palpation over left flank Results & Data ([facility]) Vital Signs (Past 12 Hours) Vital Signs Temp Pulse Pulse Resp BP BP Pulse Ox 07/02/22 07:08 37.0 C 76 15 107/72 94 07/01/22 23:24 36.9 C 71 16 135/91 96 07/01/22 22:00 70 17 95 07/01/22 22:00 118/80 07/01/22 21:50 63 12 91 07/01/22 21:40 65 14 91 07/01/22 21:30 65 23 94 07/01/22 21:30 115/73 07/01/22 21:20 75 17 96 07/01/22 21:10 70 21 92 07/01/22 21:00 70 18 91 07/01/22 21:00 124/71 07/01/22 20:50 73 21 92 07/01/22 20:40 69 19 96 07/01/22 20:30 66 12 93 07/01/22 20:30 122/66 07/01/22 20:20 62 13 93 07/01/22 20:10 61 16 85 L 07/01/22 20:17 59 L 20 95 O2 Del Method O2 Flow Rate 07/02/22 07:08 Room Air 07/01/22 23:24 Nasal Cannula 2 07/01/22 22:00 07/01/22 22:00 07/01/22 21:50 07/01/22 21:40 07/01/22 21:30 07/01/22 21:30 07/01/22 21:20 07/01/22 21:10 07/01/22 21:00 07/01/22 21:00 07/01/22 20:50 07/01/22 20:40 07/01/22 20:30 07/01/22 20:30 07/01/22 20:20 07/01/22 20:10 07/01/22 20:17 Nasal Cannula 3 PG Care Time/CCT Total # of Minutes Spent Total Time Spent with Patient: Total time spent is greater than 50% in coordination of care (as documented) at patient's floor/unit and/or counseling patient: Coding Level of Care Code 25434 SUB INP/OBS CARE 2/35MIN Diagnoses Left ureteral calculus N20.1 Hydroureteronephrosis N13.30 Urinary tract infection N39.0
[2022-07-02] MEDS ORDERED: METOCLOPRAMIDE HCL INJ 5 MG/ML 2 ML VIAL IV ONE (08:18)
[2022-07-02 08:26] LABS: BUN Creatinine Ratio 21.2 (10-20); Calcium 8.9 mg/dl (8.5-10.1); Creatinine Clr Calc Pharmacy 50.4 ml/min; Est GFR (African American) 51.4 ml/min; Est GFR (Non-African American) 44.4 ml/min; Potassium 3.9 mmol/L (3.5-5.1)
[2022-07-02] MEDS ORDERED: GLYCOPYRROLATE 0.2 MG/ML VIAL ONE (09:24)
[2022-07-02] MEDS ORDERED: MIDAZOLAM HCL 1 MG/ML 2ML VIAL ONE (09:24)
[2022-07-02] MEDS ORDERED: KETAMINE 50 MG/5 ML SYRINGE ONE (09:24)
[2022-07-02] MEDS ORDERED: PROPOFOL IV EMULSION 10 MG/ML 20 ML VIAL IV ONE (09:24)
[2022-07-02] MEDS ORDERED: ONDANSETRON INJ 2 MG/ML 2 ML VIAL ONE (09:24)
[2022-07-02] MEDS ORDERED: fentaNYL citrate 100 MCG/2 ML VIAL ONE (09:24)
--- NOTE | 2022-07-02 09:32 | Anesthesiology Consultation ---
Date of Service July 02, 2022 Assessment & Plan (1) Encounter for pre-operative examination: Chart Review Chart Review: Acceptable Risk for Surgery and Patient NOT seen in Pre Admission Testing Consults Requested none History Surgery Operation Date: 07/02/22 09:30 Proposed Procedures p Cystoscopy, Retrograde Pyelogram, Ureteral Stent Placement - Left - Keegan Ray MD Height/Weight Height: 5 ft 4 in Weight: 89.7 kg Allergies Allergy/AdvReac Type Severity Reaction Status Date / Time Iodinated Contrast Media Allergy Intermediate hives Verified 07/01/22 12:13 Penicillins Allergy Intermediate mouth sores Verified 07/01/22 12:13 vaccine adjuvant system, Allergy Intermediate ARM Verified 07/01/22 12:13 [id number] liposomal SWELLED UP [From Shingrix (PF)] varicella-zoster virus Allergy Intermediate ARM Verified 07/01/22 12:13 glycoprotein E, recombinant SWELLED UP [From Shingrix (PF)] latex Allergy Mild Redness of Verified 07/01/22 12:13 Skin citalopram AdvReac Mild headache Verified 07/01/22 12:13 Medications Home Medications Medication Instructions Recorded Confirmed Last Taken calcium carbonate 600 mg calcium 600 mg PO BID 08/12/18 07/01/22 07/01/22 (1,500 mg) tablet (Calcium) multivitamin 1 tab PO QAM 08/12/18 07/01/22 08/16/21 cholecalciferol (vitamin D3) 25 1,000 unit PO DAILY 12/18/18 07/01/22 07/01/22 mcg (1,000 unit) tablet (Vitamin D3) omega 1-lom-huf-fish oil 1,000 mg 1 cap PO QAM 04/11/20 07/01/22 07/01/22 (120 mg-180 mg) capsule (Fish Oil) bupropion HCl 150 mg tablet,12 hr 150 mg PO BID #90 ea 01/23/21 07/01/22 07/01/22 sustained-release am fluticasone propionate 50 2 spray intranasal BID PRN allergy 06/04/21 07/01/22 Unknown mcg/actuation nasal symptoms #16 grams spray,suspension clonazepam 1 mg tablet (Klonopin) 0.5 mg PO HS 09/26/21 07/01/22 06/30/22 apixaban 5 mg tablet 5 mg PO BID #60 tabs 10/08/21 07/01/22 07/01/22 ascorbic acid (vitamin C) 1,000 mg 1 g PO DAILY 07/01/22 07/01/22 Unknown tablet (Vitamin C) budesonide-formoterol HFA 160 2 puff inhalation BID PRN 07/01/22 07/01/22 Unknown mcg-4.5 mcg/actuation aerosol Shortness Of Breath Or Wheezing inhaler (Symbicort) ciprofloxacin HCl 500 mg tablet 500 mg PO Q12 07/01/22 07/01/22 Unknown famotidine 20 mg tablet 20 mg PO BID 07/01/22 07/01/22 07/01/22 linaclotide 72 mcg capsule 72 mcg PO DAILYBB 07/01/22 07/01/22 07/01/22 (Linzess) mirtazapine 15 mg tablet 15 mg PO HS 07/01/22 07/01/22 06/30/22 pantoprazole 40 mg tablet,delayed 40 mg PO HS 07/01/22 07/01/22 06/30/22 release (Protonix) sertraline 100 mg tablet 150 mg PO QAM 07/01/22 07/01/22 07/01/22 tamsulosin 0.4 mg capsule (Flomax) 0.4 mg PO QPM #30 caps 07/01/22 07/01/22 Unknown tramadol 50 mg tablet 50 mg PO BID PRN pain #10 tabs 07/01/22 07/01/22 Unknown trazodone 100 mg tablet 200 mg PO HS 07/01/22 07/01/22 06/30/22 zinc acetate 50 mg (zinc) capsule 50 mg PO DAILY 07/01/22 07/01/22 07/01/22 Active Medications Generic Name Dose Route Start Last Admin Trade Name Freq PRN Reason Stop Dose Admin Acetaminophen 650 mg 07/01/22 23:24 07/02/22 08:01 Acetaminophen 325 Mg Tab PO 07/31/22 23:23 650 mg Q4H PRN Administration pain/fever Bupropion HCl 150 mg 07/02/22 09:00 07/02/22 08:02 Bupropion Sr 150 Mg Tabcr PO 08/01/22 08:59 150 mg BID@0900,1500 YOLANDA Administration Hydromorphone HCl 0.5 mg 07/02/22 04:14 07/02/22 04:19 Hydromorphone Inj 0.5 Mg/0.5 Ml Syr IV 07/15/22 23:23 0.5 mg Q2H PRN Administration pain rating 8-10 or breakthru Sodium Chloride 1,000 mls @ 80 mls/hr 07/01/22 23:24 07/01/22 23:46 Nss 1000ml IV 07/03/22 00:23 80 mls/hr .[id number] YOLANDA Administration Ciprofloxacin Lactate 200 mg in 100 mls @ 100 mls/hr 07/02/22 09:00 07/02/22 09:07 Cipro / D5w IV 07/07/22 08:59 Infused Q12H YOLANDA Infusion Protocol Famotidine 20 mg/ Syringe 5 mls @ 2.5 mls/min 07/02/22 09:00 07/02/22 08:03 IV 08/01/22 08:59 2.5 mls/min Q12 YOLANDA Administration Ondansetron HCl 4 mg 07/01/22 23:24 07/02/22 03:22 Ondansetron Inj 2 Mg/Ml 2 Ml Vial IV 07/31/22 23:23 4 mg Q6H PRN Administration Nausea Sertraline HCl 150 mg 07/02/22 09:00 07/02/22 08:02 Sertraline Hcl 50 Mg Tablet PO 08/01/22 08:59 150 mg QAM YOLANDA Administration Tamsulosin HCl 0.4 mg 07/01/22 23:24 07/02/22 00:42 Tamsulosin Hcl 0.4 Mg Cap PO 07/31/22 23:23 Not Given HS [facility] Past Medical History Medical History Anxiety and depression Arthritis Chronic back pain Chronic low back pain Deep vein thrombosis ARM DX> 2014 LLE DX>2009>UNSURE OF REASON/TAKING ELIQUIS GERD (gastroesophageal reflux disease) History of COVID-19 07/2020>SINUS CONGESTION/FEVER/FATIGUE/LOSS OF TASTE AND SMELL *TASTE STILL IS NOT BACK TO NORMAL History of endometriosis History of IBS Hx of migraines Hx of skin cancer, basal cell Kidney stones Lumbar facet joint syndrome Myofascial pain Polydipsia Post traumatic stress disorder Restless leg syndrome Sarcoidosis EFFECTING LUNG Past Family History Family History Sister Graves disease Family history of diabetes mellitus Mother Family history of diabetes mellitus Father Family history of diabetes mellitus Other Diabetes Hypertension No family history of adverse response to anesthesia Denies family history of Ovarian cancer Prostate cancer Myocardial infarction Breast cancer Colorectal cancer Past Surgical History Surgical History H/O partial thyroidectomy BENIGN NODULE REMOVED History of anesthesia reaction DIZZINESS History of arthroscopy of knee LEFT History of bronchoscopy History of colonoscopy (~2018) History of elbow surgery LEFT History of esophagogastroduodenoscopy (EGD) (~2018) History of hysterectomy with unilateral oophorectomy W/APPENDECTOMY History of sleeve gastrectomy History of tubal ligation S/P laparoscopic cholecystectomy (~2018) Social History Smoking Status: Never smoker Hx Alcohol Use: No Hx Substance Use: No substance use type: does not use Physical Exam Vital Signs Last Vital Signs Temp 37.0 C 07/02/22 07:08 Pulse 76 07/02/22 07:08 Resp 15 07/02/22 07:08 BP 107/72 07/02/22 07:08 Pulse Ox 94 07/02/22 07:08 O2 Del Method Room Air 07/02/22 07:08 O2 Flow Rate 2 07/01/22 23:24 Testing Laboratory Results 07/02/22 07:15 07/02/22 07:15 Urine Color Red 07/01/22 18:45 Urine Appearance Cloudy (Clear) A 07/01/22 18:45 Urine pH 5.0 (4.5-7.5) 07/01/22 18:45 Ur Specific [place] 1.031 (1.000-1.030) H 07/01/22 18:45 Urine Protein 2+ (Negative) H 07/01/22 18:45 Urine Glucose (UA) Negative (Negative) 07/01/22 18:45 Urine Ketones Negative (Negative) 07/01/22 18:45 Urine Nitrite Positive (Negative) A 07/01/22 18:45 Ur Leukocyte Esterase 1+ (Negative) H 07/01/22 18:45 Urine WBC (Auto) >30 /hpf (0-5) H 07/01/22 18:45 Urine RBC (Auto) >30 /hpf (0-4) H 07/01/22 18:45 U Hyaline Cast (Auto) 0 /lpf (0-5) 07/01/22 18:45 U Epithel Cells (Auto) >30 /lpf (0-5) H 07/01/22 18:45 Urine Bacteria (Auto) Negative (Negative) 07/01/22 18:45 Electrocardiogram Date: 12/27/21 DICTATED BY:Tera Klein MD Test Reason : Blood Pressure : / mmHG Vent. Rate : 116 BPM Atrial Rate : 116 BPM P-R Int : 176 ms QRS Dur : 132 ms QT Int : 326 ms P-R-T Axes : 027 094 -14 degrees QTc Int : 453 ms Sinus tachycardia Right bundle branch block with repolarization abnormality Abnormal ECG When compared with ECG of 14-AUG-2021 22:10, Vent. rate has increased BY 42 BPM Other Testing stress echo 02/16/21: Normal stress echo. no EKG changes. No chest pain.
[2022-07-02] MEDS ORDERED: PANTOprazole 40 MG in SYRINGE 0 ML IV SCH (11:00)
[2022-07-02] MEDS ORDERED: DIATRIZOATE MEGLUMINE 30% 100ML VIAL INSTIL ONE (11:26)
--- NOTE | 2022-07-02 11:59 | Operative Report ---
PG Post Operative Report Pre & Post Diagnosis Operation Date: 07/02/22 09:30 Pre-Op Diagnosis: Left ureteral calculus Post-Op Diagnosis: Left ureteral calculus I identified the patient and participated in the time-out.: Yes Procedure Operation Date: 07/02/22 09:30 Actual Procedures p Cystoscopy, Left Ureteral Stent Placement, Left ureteroscopy(Left) - Fabricio Ray MD Surgeon Keegan Ray MD Event Set Up Specialist none Estimated Blood Loss 0 Findings Consistent with Post-Op Diagnosis Specimens none Description of Procedure The patient was identified in the preoperative holding area, appropriate informed consents were reviewed and completed and the patient was transferred to the operative suite. Upon arrival, appropriate antibiotics and anesthesia were administered and the patient was placed in dorsal lithotomy position and prepped and draped in sterile fashion. Begin the case I passed a 20 Barb[place] cystoscope with 30 degree lens. Of note she has a substantial cystocele which change the angulation of the urethra and bladder considerably. There is considerable movement of the bladder with breathing. After inspecting, I turned my attention to the left ureteral orifice and cannulated it with a sensor wire and a 5 [place] open-ended catheter. The wire advanced the kidney without difficulty. The stone was not readily visible on fluoroscopy. I then attempted to place a 6 [place] by 24 cm stent. Unfortunately, after deploying the stent, with a deep breath the distal aspect of the stent retracted into the ureter as the ureteral length likely is extended secondary to the cystocele. I was unable to grasp this or visualize this from the bladder and in turn I entered with a semirigid ureteroscope which I carefully guided into the distal ureter. I grasped the distal aspect of the stent withdrew to the bladder and then ultimately exchanged for 6 [place] by 26 cm stent which saw much better curl in the kidney as well as the bladder. She was draining through and around the stent with bloody old urine. She tolerated the procedure very well and was reversed of anesthesia and taken to the recovery room in stable condition. There were no complications. I attest to the content of the Intraoperative Record and any orders documented therein. Any exceptions are noted below.
[2022-07-02] MEDS: SODIUM CHLORIDE 0.9% 1000ML 1,000 ML IV SCH (13:05)
--- NOTE | 2022-07-02 13:23 | Fluoroscopy Report ---
FL retrograde includes kub CLINICAL HISTORY: LT STENT TECHNIQUE: 2 views were obtained with the C-arm in the OR with the above procedure. Total fluoroscopy time was 33.2 seconds. Radiation dose was 8.91 mGy. Comparison: Comparison is made to CT abdomen pelvis 07/01/2022 FINDINGS/IMPRESSION: Intraoperative images were obtained of left retrograde pyelogram and stent place ment. Please correlate with intraoperative fluoroscopy and operative report. ACT 112: Negative or not required by law. Electronically signed by: Rigoberto Nicole M.D. 07/02/2022 1:21 PM
--- NOTE | 2022-07-02 13:56 | Anesthesiology Progress Note ---
Date of Service July 02, 2022 Anesthesia Post Procedure Vital Signs Vital Signs: Temp Pulse Pulse Pulse Resp BP BP 07/02/22 13:42 36.8 C 72 16 07/02/22 13:20 37 C 79 16 07/02/22 13:05 36.5 C 74 16 07/02/22 12:50 36.5 C 78 16 07/02/22 12:35 36.5 C 79 17 132/89 07/02/22 12:25 77 19 128/84 07/02/22 12:15 82 18 133/89 07/02/22 12:05 83 15 138/89 07/02/22 11:57 36.4 C L 94 H 15 122/95 07/02/22 09:28 37.3 C 77 16 07/02/22 07:08 37.0 C 76 15 107/72 07/01/22 23:24 36.9 C 71 16 135/91 07/01/22 22:00 70 17 07/01/22 22:00 118/80 07/01/22 21:50 63 12 07/01/22 21:40 65 14 07/01/22 21:30 65 23 07/01/22 21:30 115/73 07/01/22 21:20 75 17 07/01/22 21:10 70 21 07/01/22 21:00 70 18 07/01/22 21:00 124/71 07/01/22 20:50 73 21 07/01/22 20:40 69 19 07/01/22 20:30 66 12 07/01/22 20:30 122/66 07/01/22 20:20 62 13 07/01/22 20:10 61 16 07/01/22 20:17 59 L 20 07/01/22 20:00 73 22 07/01/22 20:00 122/105 H 07/01/22 19:50 72 18 07/01/22 19:40 68 18 07/01/22 19:30 69 16 07/01/22 19:20 65 29 H 07/01/22 19:15 74 18 07/01/22 19:18 69 07/01/22 19:15 71 19 134/72 07/01/22 17:52 36.7 C 80 16 130/71 BP Pulse Ox O2 Del Method O2 Flow Rate 07/02/22 13:42 129/82 95 Nasal Cannula 1 07/02/22 13:20 129/84 95 Nasal Cannula 1 07/02/22 13:05 135/86 97 Room Air 1.5 07/02/22 12:50 131/86 95 Nasal Cannula 2 07/02/22 12:35 96 Nasal Cannula 2 07/02/22 12:25 97 Nasal Cannula 2 07/02/22 12:15 100 Oxymask 4 07/02/22 12:05 99 Oxymask 5 07/02/22 11:57 99 Oxymask 5 07/02/22 09:28 130/65 94 Room Air 07/02/22 07:08 94 Room Air 07/01/22 23:24 96 Nasal Cannula 2 07/01/22 22:00 95 07/01/22 22:00 07/01/22 21:50 91 07/01/22 21:40 91 07/01/22 21:30 94 07/01/22 21:30 07/01/22 21:20 96 07/01/22 21:10 92 07/01/22 21:00 91 07/01/22 21:00 07/01/22 20:50 92 07/01/22 20:40 96 07/01/22 20:30 93 07/01/22 20:30 07/01/22 20:20 93 07/01/22 20:10 85 L 07/01/22 20:17 95 Nasal Cannula 3 07/01/22 20:00 96 07/01/22 20:00 07/01/22 19:50 95 07/01/22 19:40 96 07/01/22 19:30 93 07/01/22 19:20 96 07/01/22 19:15 97 07/01/22 19:18 07/01/22 19:15 97 Room Air 07/01/22 17:52 97 Room Air Pain Intensity Abdomen: Pain Intensity: 8 Transfer of Care Handoff Completed per policy Notes Mental Status: alert / awake / arousable and participated in evaluation Patient Amnestic to Procedure: Yes Nausea / Vomiting: adequately controlled Pain: adequately controlled Airway Patency, RR, SpO2: stable & adequate BP & HR: stable & adequate Hydration State: stable & adequate Anesthetic Complications: no major complications apparent and Pt Satisfied with anesthetic care
--- NOTE | 2022-07-02 20:22 | Hospitalist Progress Note ---
Date of Service July 02, 2022 Assessment & Plan (1) Left ureteral calculus: Plan: 6mm prox Left-sided ureteral stone. s/p cysto with stent placement today by Dr Ray - [facility]. appreciate their assistance. start norco 7.5mg prn pain use dilaudid sparingly for refractory pain pyridium prn oxybutinin prn cont IV abx follow blood/urine cx's cont flomax daily of note - has considerable stone burden b/l - these will need to be addressed will check about dietary/liquid intake on chronic basis as well (2) Hydroureteronephrosis: Plan: 2nd to #1 left s/p stent placement (3) Urinary tract infection: Plan: suspected cont cipro IV follow urine/blood cx's (4) Hematuria: Plan: 2nd to #1 above (5) Sarcoidosis: Plan: noted uncertain if she still follows with pulmonary for this does not appear she is on active treatment at this time (6) History of sleeve gastrectomy: Plan: noted (7) Deep vein thrombosis: Plan: on Eliquis 5mg BID (8) Pulmonary embolism: Plan: on Eliquis 5mg BID (9) HTN (hypertension): Plan: it does not appear she is on chronic medication for this BPs controlled w/o any dedicated meds Plan daughter updated by phone late this pm daughter mentioned that her mother started complaining of a swollen lymph node in neck this evening?? will address on rounds tomorrow Admission and Anticipated Discharge Date Admission Date: July 01, 2022 Subjective I saw Ms Cosme after her cystoscopy she was very tired she did report her pain in her abdomen/side was much better but is now having dysuria had no appetite for lunch denied any chest pain denied any vomiting still having intermittent gross hematuria Review of Systems Review of Systems: gen - no fevers; fatigue cv - no orthopnea pulm - no dyspnea Physical Exam Physical Exam: gen - NAD, sleepy but able to answer questions mouth - MM dry neck - no JVD heart - RRR, s1 s2 lungs - CTA b/l abd - soft NT ND BS+; no flank tenderness b/l ext - no edema, pulses 2+ b/l Results & Data Results & Data ([facility]) Vital Signs (Past 12 Hours) Vital Signs Temp Pulse Pulse Resp BP BP Pulse Ox 07/02/22 14:05 36.8 C 74 16 133/83 94 07/02/22 13:42 36.8 C 72 16 129/82 95 07/02/22 13:20 37 C 79 16 129/84 95 07/02/22 13:05 36.5 C 74 16 135/86 97 07/02/22 12:50 36.5 C 78 16 131/86 95 07/02/22 12:35 36.5 C 79 17 132/89 96 07/02/22 12:25 77 19 128/84 97 07/02/22 12:15 82 18 133/89 100 07/02/22 12:05 83 15 138/89 99 07/02/22 11:57 36.4 C L 94 H 15 122/95 99 07/02/22 09:28 37.3 C 77 16 130/65 94 O2 Del Method O2 Flow Rate 07/02/22 14:05 Nasal Cannula 1.5 07/02/22 13:42 Nasal Cannula 1 07/02/22 13:20 Nasal Cannula 1 07/02/22 13:05 Room Air 1.5 07/02/22 12:50 Nasal Cannula 2 07/02/22 12:35 Nasal Cannula 2 07/02/22 12:25 Nasal Cannula 2 07/02/22 12:15 Oxymask 4 07/02/22 12:05 Oxymask 5 07/02/22 11:57 Oxymask 5 07/02/22 09:28 Room Air Laboratory Results Laboratory Results - last 24 hr 07/01/22 07/01/22 07/01/22 18:35 20:15 20:59 WBC RBC Hgb Hct MCV MCH MCHC RDW Std Deviation RDW Coeff of Winsome Plt Count MPV Sodium Potassium Chloride Carbon Dioxide Anion Gap BUN Creatinine Est Cr Clr Drug Dosing Est GFR ( Amer) Est GFR (Non-Af Amer) BUN/Creatinine Ratio Glucose POC Glucose Calcium Procalcitonin Cancelled < 0.05 SARS-CoV-2, RNA, NAAT NEGATIVE 07/02/22 07/02/22 07/02/22 07:15 07:15 09:27 WBC 7.93 RBC 4.09 L Hgb 13.4 Hct 38.9 MCV 95.1 MCH 32.8 MCHC 34.4 RDW Std Deviation 47.2 H RDW Coeff of Winsome 13.4 Plt Count 159 MPV 11.0 Sodium 138 Potassium 3.9 Chloride 105 Carbon Dioxide 29 Anion Gap 4 BUN 28 H Creatinine 1.32 H Est Cr Clr Drug Dosing 50.4 Est GFR ( Amer) 51.4 Est GFR (Non-Af Amer) 44.4 BUN/Creatinine Ratio 21.2 H Glucose 115 H POC Glucose 115 H Calcium 8.9 Procalcitonin SARS-CoV-2, RNA, NAAT Diagnostic Findings blood/urine cx's thus far negative PG Care Time/CCT Total # of Minutes Spent Total Time Spent with Patient: Total time spent is greater than 50% in coordination of care (as documented) at patient's floor/unit and/or counseling patient: Coding Level of Care Code 88669 SUB INP/OBS CARE 2/35MIN Diagnoses Left ureteral calculus N20.1 Hydroureteronephrosis N13.30 Urinary tract infection N39.0 Hematuria R31.9 Sarcoidosis D86.9 History of sleeve gastrectomy Z90.3 Deep vein thrombosis I82.409 Pulmonary embolism I26.99 Acute cor pulmonale presence: unspecified Chronicity: acute Pulmonary embolism type: unspecified HTN (hypertension) I10 (8) Pulmonary embolism Acute cor pulmonale presence: unspecified Chronicity: acute Pulmonary embolism type: unspecified Qualified Code(s): I26.99 - Other pulmonary embolism without acute cor pulmonale
[2022-07-02] MEDS ORDERED: OXYBUTYNIN CHLORIDE 5 MG TAB PO PRN (20:26)
[2022-07-02] MEDS ORDERED: HYDROmorphone INJ 0.5 MG/0.5 ML SYR IV PRN ×2 (20:30→20:31)
[2022-07-02] MEDS: traZODone HCL 100 MG TAB PO SCH (22:28)
[2022-07-02] MEDS: MIRTAZAPINE TAB 15 MG TAB PO SCH (22:28)
[2022-07-02] MEDS: clonazePAM 0.5 MG TAB PO SCH (22:28)
[2022-07-03] MEDS: FAMOTIDINE 20 MG in SYRINGE 3 ML IV SCH (00:02)
[2022-07-03] MEDS: ONDANSETRON INJ 2 MG/ML 2 ML VIAL IV PRN (04:24)
--- NOTE | 2022-07-03 06:02 | Billing Data ---
Date of Service July 03, 2022 Coding Level of Care Code 84400 INT INP/OBS CARE
[2022-07-03] MEDS: HYDROCODONE/ACETAMINOPHEN 7.5/325MG TAB PO PRN ×2 (08:50→20:53)
[2022-07-03] MEDS: buPROPion SR 150 MG TABCR PO SCH ×2 (08:51→17:00)
[2022-07-03] MEDS: ASCORBIC ACID 500 MG TAB PO SCH (08:51)
[2022-07-03] MEDS: CHOLECALCIFEROL 1,000 UNITS 25 MCG TAB PO SCH (08:52)
[2022-07-03] MEDS: SERTRALINE HCL 50 MG TABLET PO SCH (08:53)
[2022-07-03] MEDS: CIPROFLOXACIN / D5W 200 MG/100 ML BAG IV SCH ×2 (08:54→20:54)
--- NOTE | 2022-07-03 08:55 | Urology Progress Note ---
Date of Service July 03, 2022 Assessment & Plan (1) Left ureteral calculus: (2) Hydroureteronephrosis: Plan: - Pt POD#1 s/p cystoscopy and left ureteral stent placement - Overall doing well, progressing as expected - Afebrile, no new labs at time of visit - orders placed for BMP, CBC - Blood cultures no growth x24 hours, prelim urine culture showing no growthfollow cultures - Notes some bother from left ureteral stent - Okay to d/c from perspective when medically stable - Recommend d/c with course of PO antibiotics, Tamsulosin, prn Pyridium and prn pain medication for stent management - Expected clinical course reviewed, all questions answered - Will arrange outpatient follow-up with our service for this definitive stone management - will sign off. Contact our service with any additional questions/concerns. Admission and Anticipated Discharge Date Admission Date: July 01, 2022 Subjective Patient seen and examined at bedside this morning. She is asleep, arouses easily to her name. She reports intermittent left flank discomfort. She also notes headache and some discomfort on the left side of her neck. She is voiding spontaneously without difficulty. Notes some dysuria and hematuria postprocedure. Continues to have some nausea. No fever or chills. Review of Systems Constitutional: as per Subjective / HPI Gastrointestinal: as per Subjective / HPI Genitourinary: as per Subjective / HPI Physical Exam Constitutional: well developed and well nourished; no acute distress and not ill appearing Neck: normal visual inspection Respiratory: normal respiratory effort and able to speak in complete sentences; no respiratory distress and no labored breathing Cardiovascular: Extremities: no pedal edema Gastrointestinal (Abdomen): Inspection/Auscultation: abdomen normal to inspection; abdomen not distended Percussion/Palpation: abdomen soft; abdomen nontender and no guarding Neurologic: moves all extremities and awake Psychiatric: Orientation: alert and oriented x 3 Results & Data ([facility]) Vital Signs (Past 12 Hours) Vital Signs Temp Pulse Resp BP BP Pulse Ox O2 Del Method 07/03/22 06:54 37.2 C 75 18 111/72 94 Room Air 07/03/22 04:17 37 C 70 16 105/70 97 Room Air 07/02/22 22:35 37.1 C 65 16 99/65 L 97 Nasal Cannula O2 Flow Rate 07/03/22 06:54 07/03/22 04:17 07/02/22 22:35 3 PG Care Time/CCT Total # of Minutes Spent Total Time Spent with Patient: Total time spent is greater than 50% in coordination of care (as documented) at patient's floor/unit and/or counseling patient: Coding Level of Care Code 55170 SUB INP/OBS CARE 05/29MIN Diagnoses Left ureteral calculus N20.1 Hydroureteronephrosis N13.30
[2022-07-03] MEDS: FAMOTIDINE 20 MG TAB PO SCH ×2 (09:12→21:48)
[2022-07-03 09:54] LABS: Hematocrit (blood only) 35.8 % (37.0-47.0); Mean Corpuscular Hgb Conc 33.5 g/dL (32.0-36.0); Mean Corpuscular Volume 95.5 fL (80.0-100.0); Platelet Count 144 K/uL (130-400); RDW Coefficient of Variation 13.1 % (11.5-14.5); Red Blood Count 3.75 M/uL (4.20-5.40); White Blood Count 5.76 K/ul (4.8-10.8)
[2022-07-03 10:18] LABS: BUN Creatinine Ratio 16.3 (10-20); Calcium 8.8 mg/dl (8.5-10.1); Creatinine Clr Calc Pharmacy 72.3 ml/min; Est GFR (African American) 79.6 ml/min; Est GFR (Non-African American) 68.6 ml/min; Potassium 3.8 mmol/L (3.5-5.1)
[2022-07-03] MEDS ORDERED: KETOROLAC 30 MG/ML VIAL IV ONE (12:30)
--- NOTE | 2022-07-03 13:34 | CT Scan Report ---
MAXILLOFACIAL CT WITHOUT CONTRAST CLINICAL HISTORY: recent left mandibular molar dental work; pain left jaw COMPARISON STUDY: None. TECHNIQUE: A maxillofacial CT was performed without IV contrast. Coronal and sagittal reformats were viewed. Automated exposure control was utilized for the study. A dose lowering technique was utiliz ed adhering to the principles of ALARA. FINDINGS: A few opacified left mastoid air cells are present. Right mastoid air cells are clear. Ther e is minimal mucosal thickening of the sinuses. There is no evidence for acute sinusitis. Orbits are unremarkable on this unenhanced examination. The epiglottis is normal. Parotid and submandibular glan ds are normal. Several teeth are absent. There are multiple dental amalgams. No mandibular fracture i s present. There is no adjacent fluid collection to suggest an abscess on this unenhanced exam. Adjac ent soft tissues are unremarkable by CT. IMPRESSION: 1. No fluid collection to suggest abscess. No mandibular fracture. 2. Several absent teeth and multiple dental amalgams. ACT 112: Negative or not required by law. Electronically signed by: Luis Enrique Mark M.D. 07/03/2022 1:33 PM
[2022-07-03] MEDS: SENNA 8.6 MG TAB PO SCH (13:42)
[2022-07-03] MEDS: POLYETHYLENE (MIRALAX) 17 GM PACK PO SCH (13:42)
[2022-07-03] MEDS: PHENAZOPYRIDINE HCL 100 MG TAB PO PRN ×2 (13:42→21:47)
[2022-07-03] MEDS ORDERED: clonazePAM 0.5 MG TAB PO STA (15:35)
--- NOTE | 2022-07-03 16:46 | CT Scan Report ---
CT chest diagnostic wo con CLINICAL HISTORY: h/o sarcoid, pulmonary nodules on recent CT a/p TECHNIQUE: Multidetector row helical CT of the chest was performed. Coronal and sagittal reformations were obtained. Automated dose lowering techniques and/or adjustment according to patient size were u tilized for this exam. Comparison: Comparison is made to CTA chest 08/14/[address] abdomen pelvis 07/01/2022 FINDINGS: Lungs and pleura: Numerous bilateral nodules are seen most prominently in the bilateral upper lobes, some with calcifications. Overall the nodularity appears similar to the prior exam. Atelectasis is se en in the lungs. Heart and pericardium: Physiologic pericardial fluid is noted. Vessels: Unremarkable. Mediastinum and ros: Scattered partially calcified lymph nodes are seen. The largest measures up to 10 mm in diameter. Chest wall and lower neck: Unremarkable. Abdomen: A [id number] hiatal hernia is seen with postsurgical changes about the stomach. The g allbladder is surgically absent. Bones: Degenerative changes in the thoracic spine. IMPRESSION: Numerous tree-in-bud nodules, some of which are calcified, along with partially calcified mediastinal lymph nodes are compatible with sarcoidosis. Findings are essentially unchanged from prior exam. ACT 112: Negative or not required by law. Electronically signed by: Rigoberto Nicole M.D. 07/03/2022 4:45 PM
[2022-07-03] MEDS: SODIUM CHLORIDE 0.9% 1000ML 1,000 ML IV SCH (16:56)
[2022-07-03] MEDS ORDERED: dexAMETHasone 6 MG in SYRINGE 0 ML IV ONE (19:37)
--- NOTE | 2022-07-03 19:40 | Hospitalist Progress Note ---
Date of Service July 03, 2022 Assessment & Plan (1) Left ureteral calculus: Plan: 6mm prox Left-sided ureteral stone. POD #1 s/p cysto with stent placement by Dr Ray - [facility]. appreciate their assistance. cont norco 7.5mg prn pain use dilaudid sparingly for refractory pain pyridium prn oxybutinin prn cont IV abx but blood/urine cx's negative to date will cont cipro at d/c even if urine cx stays negative cont flomax daily of note - has considerable stone burden b/l when left ureteral stone is addressed urology may be able to address additional stones (via ureteroscopy?) (2) Hydroureteronephrosis: Plan: 2nd to #1 left s/p stent placement (3) Urinary tract infection: Plan: suspected but cx negative cont cipro IV see #1 above follow urine/blood cx's (4) Hematuria: Plan: 2nd to #1 above improved (5) Sarcoidosis: Plan: noted CT chest obtained today - stable sarcoid findings follows with Dr Mcgowan [facility] (6) History of sleeve gastrectomy: Plan: noted (7) Deep vein thrombosis: Plan: on Eliquis 5mg BID resume tonight (8) Pulmonary embolism: Plan: on Eliquis 5mg BID resume tonight (9) HTN (hypertension): Plan: it does not appear she is on chronic medication for this BPs controlled w/o any dedicated meds and, if anything, BPs are low-normal resume IV fluids overnight (10) Nocturnal hypoxemia: Plan: suspicious for TU even though sleep study 5+ years ago was negative will obtain overnight oximetry study tonight and prescribe NC O2 if study is + will need dedicated repeat sleep study as outpatient uncertain if chronic sarcoid could be playing a role (11) Neck pain: Plan: suspect musculoskeletal CT face neg for dental abscess, enlarged lymph nodes or parotid gland issue although much worse over the left SCM muscle she also has pain over right SCM no response to toradol no response to extra dose of clonazepam try dexamethasone x 1 IV try baclofen 5mg po x 1 at HS tonight await u/s of soft tissue neck and doppler of LUE (r/o IJ clot, etc) Plan daughter updated by phone again this evening extensively observe overnight due to multiple active issues Admission and Anticipated Discharge Date Admission Date: July 01, 2022 Subjective patient reports back pain/abd pain improved however, now having severe left sided neck pain near the L angle of jaw thinks she has a swollen gland there minimal discomfort same region on right side had dental work about 2-3 weeks ago - had filling, was on course of abx (pharmacy records show clindamycin) was supposed to have root canal today slept poorly last pm needed O2 placed due to desats w/ sleep had sleep study through [facility] about 5-6 years ago - told it was normal follows w/ Dr Mcgowan for sarcoid - has not needed treatment in 10+ years appetite not that great today just feels poorly Review of Systems Review of Systems: gen - no fevers or chills cv - no chest pain or orthopnea pulm - no dyspnea or ZAPATA despite the night-time events GI - no nausea or emesis musculo - no posterior neck pain neuro - mild headache today Physical Exam Physical Exam: gen - NAD, looks tired and unwell; uncomfortable from pain in jaw region neck - tender b/l SCM muscles much worse on left; entire lengthy of the SCM on left is tender and is tender with active ROM of neck face/jaw - no tenderness over b/l parotids; ?lymph node at angle of jaw on left mouth - MMM today neck - no JVD heart - RRR, s1 s2, no murmur lungs - CTA b/l abd - soft NT ND BS+; no flank tenderness b/l ext - no edema, pulses 2+ b/l Results & Data Results & Data ([facility]) Vital Signs (Past 12 Hours) Vital Signs Temp Pulse Resp BP Pulse Ox O2 Del Method 07/03/22 15:17 37.3 C 67 16 97/65 L 90 Room Air 07/03/22 09:21 37.3 C 76 18 98/64 L 94 Room Air 07/03/22 09:13 Room Air Laboratory Results Laboratory Results - last 48 hr 07/03/22 07/03/22 09:14 09:14 WBC 5.76 RBC 3.75 L Hgb 12.0 Hct 35.8 L MCV 95.5 MCH 32.0 MCHC 33.5 RDW Std Deviation 46.0 RDW Coeff of Winsome 13.1 Plt Count 144 MPV 11.0 Sodium 140 Potassium 3.8 Chloride 106 Carbon Dioxide 30 Anion Gap 4 BUN 15 Creatinine 0.92 D Est Cr Clr Drug Dosing 72.3 Est GFR ( Amer) 79.6 Est GFR (Non-Af Amer) 68.6 BUN/Creatinine Ratio 16.3 Glucose 137 H Estimat Average Glucose Hemoglobin A1c Calcium 8.[address] maxillofacial - negative acute findings CT chest - stable sarcoid findings doppler LUE - pending soft tissue neck u/s - pending PG Care Time/CCT Total # of Minutes Spent Total Time Spent with Patient: Total time spent is greater than 50% in coordination of care (as documented) at patient's floor/unit and/or counseling patient: Coding Level of Care Code 72351 SUB INP/OBS CARE 3/50MIN Diagnoses Left ureteral calculus N20.1 Hydroureteronephrosis N13.30 Urinary tract infection N39.0 Hematuria R31.9 Sarcoidosis D86.9 History of sleeve gastrectomy Z90.3 Deep vein thrombosis I82.409 Pulmonary embolism I26.99 Acute cor pulmonale presence: unspecified Chronicity: acute Pulmonary embolism type: unspecified HTN (hypertension) I10 Nocturnal hypoxemia G47.34 Neck pain M54.2 (8) Pulmonary embolism Acute cor pulmonale presence: unspecified Chronicity: acute Pulmonary embolism type: unspecified Qualified Code(s): I26.99 - Other pulmonary embolism without acute cor pulmonale
--- NOTE | 2022-07-03 20:28 | Ultrasound Report ---
LEFT UPPER EXTREMITY VENOUS DOPPLER HISTORY: severe pain over L neck; IJ clot? other? COMPARISON STUDY: None. FINDINGS: The left internal jugular vein is patent. There is normal flow within the left subclavian v ein. There is normal flow and compressibility within the left axillary, basilic, brachial, radial, ul bharati, and visualized cephalic veins. IMPRESSION: No DVT within the left upper extremity. ACT 112: Negative or not required by law. Electronically signed by: Rick Adams M.D. 07/03/2022 8:25 PM
--- NOTE | 2022-07-03 20:59 | Ultrasound Report ---
US soft tissue neck CLINICAL HISTORY: severe pain over left sternocleidomastoid muscle COMPARISON STUDY: None. FINDINGS: Real-time sonographic imaging of the left neck was performed with c s s representative images sub mitted. No masses, fluid collections, lymphadenopathy identified. IMPRESSION: No sonographic abnormality within the left neck. ACT 112: Negative or not required by law. Electronically signed by: Rikc Adams M.D. 07/03/2022 8:58 PM
[2022-07-03] MEDS ORDERED: BACLOFEN 10 MG TAB PO ONE (21:00)
[2022-07-03] MEDS: traZODone HCL 100 MG TAB PO SCH (21:47)
[2022-07-03] MEDS: MIRTAZAPINE TAB 15 MG TAB PO SCH (21:47)
[2022-07-03] MEDS: APIXABAN 5 MG TABLET PO SCH (21:47)
[2022-07-03] MEDS: TAMSULOSIN HCL 0.4 MG CAP PO SCH (21:47)
[2022-07-03] MEDS: PANTOprazole 40 MG TAB PO SCH (21:48)
[2022-07-03] MEDS: clonazePAM 0.5 MG TAB PO SCH (21:50)
[2022-07-03] MEDS: POLYETHYLENE (MIRALAX) 17 GM PACK PO PRN (21:52)
[2022-07-04] MEDS: SODIUM CHLORIDE 0.9% 1000ML 1,000 ML IV SCH ×2 (01:38→08:20)
[2022-07-04] MEDS: FAMOTIDINE 20 MG TAB PO SCH ×2 (08:20→22:13)
[2022-07-04] MEDS: ASCORBIC ACID 500 MG TAB PO SCH (08:20)
[2022-07-04] MEDS: SERTRALINE HCL 50 MG TABLET PO SCH (08:20)
[2022-07-04] MEDS: CHOLECALCIFEROL 1,000 UNITS 25 MCG TAB PO SCH (08:21)
[2022-07-04] MEDS: buPROPion SR 150 MG TABCR PO SCH ×2 (08:21→15:21)
[2022-07-04] MEDS: APIXABAN 5 MG TABLET PO SCH ×2 (08:21→22:15)
[2022-07-04] MEDS: SENNA 8.6 MG TAB PO SCH (08:21)
[2022-07-04] MEDS: CIPROFLOXACIN / D5W 200 MG/100 ML BAG IV SCH (08:24)
[2022-07-04] MEDS: POLYETHYLENE (MIRALAX) 17 GM PACK PO SCH (08:27)
[2022-07-04 09:24] LABS: BUN Creatinine Ratio 21.1 (10-20); Calcium 9.1 mg/dl (8.5-10.1); Creatinine Clr Calc Pharmacy 73.9 ml/min; Est GFR (African American) 81.7 ml/min; Est GFR (Non-African American) 70.5 ml/min; Potassium 4.2 mmol/L (3.5-5.1)
[2022-07-04 10:05] LABS: Estimated Average Glucose 105 mg/dl; Hemoglobin A1C 5.3 % (4.5-5.6)
[2022-07-04] MEDS: PHENAZOPYRIDINE HCL 100 MG TAB PO PRN (10:41)
[2022-07-04] MEDS: HYDROCODONE/ACETAMINOPHEN 7.5/325MG TAB PO PRN ×2 (13:44→22:12)
--- NOTE | 2022-07-04 19:04 | Hospitalist Progress Note ---
Date of Service July 04, 2022 Assessment & Plan (1) Left ureteral calculus: Plan: 6mm prox Left-sided ureteral stone. POD #2 s/p cysto with stent placement by Dr Ray - [facility]. appreciate their assistance. cont norco 7.5mg prn pain use dilaudid sparingly for refractory pain pyridium prn oxybutinin prn change IV cipro to PO cipro cont flomax daily of note - has considerable stone burden b/l when left ureteral stone is addressed urology may be able to address additional stones (via ureteroscopy?) (2) Hydroureteronephrosis: Plan: 2nd to #1 left s/p stent placement (3) Urinary tract infection: Plan: suspected but cx negative cont cipro - change to PO today see #1 above (4) Hematuria: Plan: 2nd to #1 above improved (5) Sarcoidosis: Plan: noted CT chest today - stable sarcoid findings follows with Dr Mcgowan [facility] will need f/u post-d/c due to nocturnal hypoxemia and daytime O2 requirement with ambulation (6) History of sleeve gastrectomy: Plan: noted (7) Deep vein thrombosis: Plan: on Eliquis 5mg BID resumed post-cysto without issue (8) Pulmonary embolism: Plan: on Eliquis 5mg BID (9) HTN (hypertension): Plan: it does not appear she is on chronic medication for this BPs controlled w/o any dedicated meds (10) Nocturnal hypoxemia: Plan: suspicious for TU even though sleep study 5+ years ago was negative study overnight was positive - needs 2 L NC O2 w/ sleep f/u Dr Mcgowan for formal sleep study (11) Neck pain: Plan: suspect musculoskeletal CT face neg for dental abscess, enlarged lymph nodes or parotid gland issue although much worse over the left SCM muscle she also has pain over right SCM no response to toradol no response to extra dose of clonazepam responded to dexamethasone and baclofen overnight will repeat again tonight both meds u/s of soft tissue neck and doppler of LUE both NEGATIVE (12) Oxygen dependent: Plan: needs 2 L NC o2 w/ ambulation only 2nd to chronic sarcoid? OHS? restrictive lung disease? other? will need f/u with Dr Mcgowan PFTs etc check echo prior to d/c -- check PA pressures Plan await echo home tomorrow Admission and Anticipated Discharge Date Admission Date: July 01, 2022 Subjective patient slept well overnight jaw pain/sternocleidomastoid pain b/l improved with steroids/baclofen/better sleep eating better today no change in breathing we reviewed her overnight pulse oximetry study and that she needs 2 L NC O2 we also reviewed her 2-step O2 test -- will need NC O2 2 L with ambulation she is anxious about everything going on still no bowel movement but no N/V or pain she has chronic constipation at home was at bedside and he was updated extensively Review of Systems Review of Systems: gen - no fevers or chills cv - no cp pulm - no cough; no dyspnea at rest; see HPI re: O2 GI - no abd pain; minimal R flank pain today; no L flank pain - mild dysuria still Physical Exam Physical Exam: gen - NAD, looks much better today neck - tender b/l SCM muscles but much better today; L>R; range of motion of neck (rotation) improved today mouth - MMM today, no lesions neck - no JVD heart - RRR, s1 s2, no murmur lungs - CTA b/l abd - soft NT ND BS+; no flank tenderness b/l ext - no edema, pulses 2+ b/l Results & Data Results & Data ([facility]) Vital Signs (Past 12 Hours) Vital Signs Temp Pulse Pulse Pulse Pulse Pulse Pulse 07/04/22 15:07 36.7 C 71 07/04/22 14:20 07/04/22 13:37 74 82 70 68 07/04/22 07:49 07/04/22 07:25 36.5 C 66 Resp Resp Resp Resp Resp BP BP 07/04/22 15:07 16 114/71 07/04/22 14:20 07/04/22 13:37 20 24 18 18 07/04/22 07:49 07/04/22 07:25 16 128/70 Pulse Ox Pulse Ox Pulse Ox Pulse Ox Pulse Ox O2 Del Method O2 Flow Rate 07/04/22 15:07 91 Room Air 07/04/22 14:20 94 Nasal Cannula 2 07/04/22 13:37 92 88 L 93 91 07/04/22 07:49 Room Air 07/04/22 07:25 90 Room Air O2 Flow Rate 07/04/22 15:07 07/04/22 14:20 07/04/22 13:37 2 07/04/22 07:49 07/04/22 07:25 Laboratory Results Laboratory Results - last 48 hr 07/03/22 07/03/22 07/04/22 09:14 09:14 08:09 WBC 5.76 RBC 3.75 L Hgb 12.0 Hct 35.8 L MCV 95.5 MCH 32.0 MCHC 33.5 RDW Std Deviation 46.0 RDW Coeff of Winsome 13.1 Plt Count 144 MPV 11.0 Sodium 140 142 Potassium 3.8 4.2 Chloride 106 109 H Carbon Dioxide 30 29 Anion Gap 4 4 BUN 15 19 Creatinine 0.92 D 0.90 Est Cr Clr Drug Dosing 72.3 73.9 Est GFR ( Amer) 79.6 81.7 Est GFR (Non-Af Amer) 68.6 70.5 BUN/Creatinine Ratio 16.3 21.1 H Glucose 137 H 119 H Estimat Average Glucose Hemoglobin A1c Calcium 8.8 9.1 07/04/22 08:09 WBC RBC Hgb Hct MCV MCH MCHC RDW Std Deviation RDW Coeff of Winsome Plt Count MPV Sodium Potassium Chloride Carbon Dioxide Anion Gap BUN Creatinine Est Cr Clr Drug Dosing Est GFR ( Amer) Est GFR (Non-Af Amer) BUN/Creatinine Ratio Glucose Estimat Average Glucose 105 Hemoglobin A1c 5.3 Calcium PG Care Time/CCT Total # of Minutes Spent Total Time Spent with Patient: Total time spent is greater than 50% in coordination of care (as documented) at patient's floor/unit and/or counseling patient: Coding Level of Care Code 78839 SUB INP/OBS CARE 3/50MIN Diagnoses Left ureteral calculus N20.1 Hydroureteronephrosis N13.30 Urinary tract infection N39.0 Hematuria R31.9 Sarcoidosis D86.9 History of sleeve gastrectomy Z90.3 Deep vein thrombosis I82.409 Pulmonary embolism I26.99 Acute cor pulmonale presence: unspecified Chronicity: acute Pulmonary embolism type: unspecified HTN (hypertension) I10 Nocturnal hypoxemia G47.34 Neck pain M54.2 Oxygen dependent Z99.81 (8) Pulmonary embolism Acute cor pulmonale presence: unspecified Chronicity: acute Pulmonary embolism type: unspecified Qualified Code(s): I26.99 - Other pulmonary embolism without acute cor pulmonale
[2022-07-04] MEDS ORDERED: dexAMETHasone 4 MG in SYRINGE 0 ML IV ONE (19:15)
[2022-07-04] MEDS: POLYETHYLENE (MIRALAX) 17 GM PACK PO PRN (20:07)
[2022-07-04] MEDS ORDERED: BACLOFEN 10 MG TAB PO ONE (21:00)
[2022-07-04] MEDS: traZODone HCL 100 MG TAB PO SCH (22:14)
[2022-07-04] MEDS: MIRTAZAPINE TAB 15 MG TAB PO SCH (22:14)
[2022-07-04] MEDS: PANTOprazole 40 MG TAB PO SCH (22:15)
[2022-07-04] MEDS: TAMSULOSIN HCL 0.4 MG CAP PO SCH (22:15)
[2022-07-04] MEDS: CIPROFLOXACIN 500 MG TAB PO SCH (22:16)
[2022-07-04] MEDS: clonazePAM 0.5 MG TAB PO SCH (22:20)
[2022-07-05] MEDS: APIXABAN 5 MG TABLET PO SCH (08:30)
[2022-07-05] MEDS: ASCORBIC ACID 500 MG TAB PO SCH (08:30)
[2022-07-05] MEDS: CIPROFLOXACIN 500 MG TAB PO SCH (08:30)
[2022-07-05] MEDS: FAMOTIDINE 20 MG TAB PO SCH (08:30)
[2022-07-05] MEDS: buPROPion SR 150 MG TABCR PO SCH ×2 (08:30→14:43)
[2022-07-05] MEDS: CHOLECALCIFEROL 1,000 UNITS 25 MCG TAB PO SCH (08:30)
[2022-07-05] MEDS: POLYETHYLENE (MIRALAX) 17 GM PACK PO SCH (08:31)
[2022-07-05] MEDS: SENNA 8.6 MG TAB PO SCH (08:31)
[2022-07-05] MEDS: SERTRALINE HCL 50 MG TABLET PO SCH (08:31)
[2022-07-05 10:32] LABS: Base Excess ABG 5.6 mEq/L (-9-1.8); HCO3 ABG 31 mmol/L (19-24); Oxygen Saturation ABG 97.2 % (90-95); PCO2 ABG 45 mmHg (35-46); PO2 ABG 71 mmHg (80-95); pH ABG 7.44 (7.35-7.45)
--- NOTE | 2022-07-05 10:41 | XCELERA ---
[id number]
[2022-07-05 10:50] LABS: Allen Test Pos (Pos)
--- NOTE | 2022-07-05 14:01 | Discharge Summary ---
Date of Service date of admission - July 01, 2022 date of discharge - July 05, 2022 Admission HPI Per Admitting Provider 57 yo F with PMH DVTs and PE now on Eliquis, multiple nephro/ureterolithiasis requiring lithotripsy presenting with abdominal pain. Pt states she has experienced worsening lower back pain for 1 week and painless dark hematuria beginning on 06/29. She went to urgent care and was diagnosed with UTI, started on ciprofloxacin. Hematuria continued to occur intermittently with evolving pain of left flank with radiation to abdomen. Denies fever, chills, nausea/vomiting/diarrhea. She was seen in outpatient urology today with instructions for conservative management but was advised to go to ED due to worsening pain and CTAP findings of 6mm stone in proximal L ureter. Pt arrived hemodynamically stable to ED. CBC unremarkable, BUN/Cr at 33/1.2. UA concerning for infection. ER course- Zofran 4mg x2, morphine 4mg x2, Dilaudid 0.5mg x1, NSS IVF 500ccs, started on ciprofloxacin. On my evaluation, she notes her pain at 4/10 and diffusely over the abdomen with greatest pain in L flank. Denies systemic symptoms. Principal Diagnosis 1. 6mm left-sided ureteral kidney stone s/p stent placement (Dr Keegan solis - [facility]) 2. Multiple b/l kidney stones 3. Suspected urinary tract infection 4. Suspected sleep apnea/sleep-disordered breathing with need for night-time oxygen 2 Liters 5. Need for home oxygen - 2 Liters - with ambulation 6. History of Sarcoid 7. Bilateral neck pain - suspect muscle spasm Discharge Exam gen - NAD, best she has looked since admission neck - minimally tender b/l SCM muscles, L>R; ROM/rotation of neck improved mouth - MMM, no obvious dental abscess, no gingival or buccal inflammation, no lesions neck - no JVD heart - RRR, s1 s2, no murmur lungs - CTA b/l abd - soft NT ND BS+; no flank tenderness b/l ext - no edema, pulses 2+ b/l Discharge Data Allergies Allergy/AdvReac Type Severity Reaction Status Date / Time Iodinated Contrast Media Allergy Intermediate hives Verified 07/09/22 13:07 Penicillins Allergy Intermediate mouth sores Verified 07/09/22 13:07 vaccine adjuvant system, Allergy Intermediate ARM Verified 07/09/22 13:07 [id number] liposomal SWELLED UP [From Shingrix (PF)] varicella-zoster virus Allergy Intermediate ARM Verified 07/09/22 13:07 glycoprotein E, recombinant SWELLED UP [From Shingrix (PF)] latex Allergy Mild Redness of Verified 07/09/22 13:07 Skin citalopram AdvReac Mild headache Verified 07/09/22 13:07 Consultations [facility] Respiratory therapy Procedures Performed 1, Operation Date: 07/02/22 09:30 Actual Procedures p Cystoscopy, Left Ureteral Stent Placement, Left ureteroscopy(Left) - Keegan Ray MD 2. Overnight pulse oximetry study - 3. Echocardiogram - 4. Two-step ambulatory O2 test -- need for 2 liters of NC O2 with activity/ambulation Ordered Studies Retrograde Pyelogram 07/02/22 00:00 FL retrograde includes kub CLINICAL HISTORY: LT STENT TECHNIQUE: 2 views were obtained with the C-arm in the OR with the above procedure. Total fluoroscopy time was 33.2 seconds. Radiation dose was 8.91 mGy. Comparison: Comparison is made to CT abdomen pelvis 07/01/2022 FINDINGS/IMPRESSION: Intraoperative images were obtained of left retrograde pyelogram and stent placement. Please correlate with intraoperative fluoroscopy and operative report. ACT 112: Negative or not required by law. Electronically signed by: Rigoberto Nicole M.D. 07/02/2022 1:[address] 07/03/22 12:13 CT chest diagnostic wo con CLINICAL HISTORY: h/o sarcoid, pulmonary nodules on recent CT a/p TECHNIQUE: Multidetector row helical CT of the chest was performed. Coronal and sagittal reformations were obtained. Automated dose lowering techniques and/or adjustment according to patient size were utilized for this exam. Comparison: Comparison is made to CTA chest 08/14/[address] abdomen pelvis 07/01/2022 FINDINGS: Lungs and pleura: Numerous bilateral nodules are seen most prominently in the bilateral upper lobes, some with calcifications. Overall the nodularity appears similar to the prior exam. Atelectasis is seen in the lungs. Heart and pericardium: Physiologic pericardial fluid is noted. Vessels: Unremarkable. Mediastinum and ros: Scattered partially calcified lymph nodes are seen. The largest measures up to 10 mm in diameter. Chest wall and lower neck: Unremarkable. Abdomen: A fpsse-fu-kehjsays hiatal hernia is seen with postsurgical changes about the stomach. The gallbladder is surgically absent. Bones: Degenerative changes in the thoracic spine. IMPRESSION: Numerous tree-in-bud nodules, some of which are calcified, along with partially calcified mediastinal lymph nodes are compatible with sarcoidosis. Findings are essentially unchanged from prior exam. ACT 112: Negative or not required by law. Electronically signed by: Rigoberto Nicole M.D. 07/03/2022 4:[address] 07/03/22 12:[address] WITHOUT CONTRAST CLINICAL HISTORY: recent left mandibular molar dental work; pain left jaw COMPARISON STUDY: None. TECHNIQUE: A maxillofacial CT was performed without IV contrast. Coronal and sagittal reformats were viewed. Automated exposure control was utilized for the study. A dose lowering technique was utilized adhering to the principles of ALARA. FINDINGS: A few opacified left mastoid air cells are present. Right mastoid air cells are clear. There is minimal mucosal thickening of the sinuses. There is no evidence for acute sinusitis. Orbits are unremarkable on this unenhanced exami nation. The epiglottis is normal. Parotid and submandibular glands are normal. Several teeth are absent. There are multiple dental amalgams. No mandibular fracture is present. There is no adjacent fluid collection to suggest an abscess on this unenhanced exam. Adjacent soft tissues are unremarkable by CT. IMPRESSION: 1. No fluid collection to suggest abscess. No mandibular fracture. 2. Several absent teeth and multiple dental amalgams. ACT 112: Negative or not required by law. Electronically signed by: Luis Enrique Mark M.D. 07/03/2022 1:33 PM Extremity Venous Study 07/03/22 15:30 LEFT UPPER EXTREMITY VENOUS DOPPLER HISTORY: severe pain over L neck; IJ clot? other? COMPARISON STUDY: None. FINDINGS: The left internal jugular vein is patent. There is normal flow within the left subclavian vein. There is normal flow and compressibility within the left axillary, basilic, brachial, radial, ulnar, and visualized cephalic veins. IMPRESSION: No DVT within the left upper extremity. ACT 112: Negative or not required by law. Electronically signed by: Rick Adams M.D. 07/03/2022 8:25 PM Soft Tissue Ultrasound 07/03/22 15:30 US soft tissue neck CLINICAL HISTORY: severe pain over left sternocleidomastoid muscle COMPARISON STUDY: None. FINDINGS: Real-time sonographic imaging of the left neck was performed with sales representative [employer] images submitted. No masses, fluid collections, lymphadenopathy identified. IMPRESSION: No sonographic abnormality within the left neck. ACT 112: Negative or not required by law. Electronically signed by: Rick Adams M.D. 07/03/2022 8:58 PM Hospital Course (1) Left ureteral calculus: 6mm proximal feft-sided ureteral stone. s/p cystoscopy with stent placement by Dr Ray - [facility]. Of note - has considerable stone burden bilaterally. When left ureteral stone is addressed urology may be able to address the additional stones (via ureteroscopy?). Admission u/a was suspicious for UTI but culture wasnegative. Itcz-axj-whvj she was maintained on IV cipro and changed to PO cipro at discharge; will complete 3 more days of cipro. She was given the following meds at discharge for symptomatic relief of urological symptoms - * norco prn * pyridium prn * oxybutinin prn * flomax once daily She will follow-up with [facility] within a week of discharge to discuss stone & stent management. (2) Hydroureteronephrosis: 2nd to #1 left s/p stent placement (3) Urinary tract infection: suspected but culture negative see #1 above (4) Hematuria: 2nd to #1 above improved prior to discharge (5) Neck pain: On POD #1 from her cystoscopy/stent placement she started to have bilateral sternocleidomastoid muscle pain, worse on the left. She reported having had dental work several weeks prior to admission (left mandibular molar filling, etc). CT face was obtained and was negative for dental abscess, enlarged lymph nodes or parotid gland pathology. Her pain persisted despite use of NSAIDs and muscle relaxers. Therefore, she underwent u/s of the soft tissue neck as well as a LUE Doppler. Both studies returned normal. She was started on IV steroids and this helped her pain considerably. Suspect the anterior bilateral neck pain was musculoskeletal in nature. At discharge she will take a short course of dexamethasone and baclofen prn. If pain persists then consider additional imaging (CT or MRI cervical spine, etc). She was encouraged to f/u with her dentist in the event that her pain is indeed dental in origin given the recent dental work. (6) Nocturnal hypoxemia: Several nights in a row staff noted that the patient had desaturations to the 80s in room air while sleeping. This was suspicious for sleep apnea/sleep-disordered breathing even though sleep study 5+ years ago was negative by report. Overnight oximetry study was abnormal (see results). Her desaturations resolved with addition of 2 L NC O2 about 1/2 way through the night. She will need to f/u Dr Braydon Mcgowan for a repeat formal sleep study. (7) Sarcoidosis: As a precautionary measure a 2-step oxygen ambulatory test was obtained prior to discharge. This showed that Mrs Cosme requires 2 L NC O2 with ambulation only, but none at rest. CT chest was obtained showing stable sarcoid findings. Echo was obtained to rule out pulmonary HTN and indeed echo did not show such. The patient follows with Dr Braydon Mcgowan, [facility], for her h/o sarcoid. Dr Mcgowan was made aware of the NC O2 requirement during sleep and with activity. He will see her shortly after discharge to address these issues. (8) Oxygen dependent: needs 2 L NC o2 with ambulation only 2nd to chronic sarcoid? OHS? restrictive lung disease? other? will need f/u with Dr Mcgowan for this as noted above (9) Deep vein thrombosis: past history of on Eliquis 5mg BID (10) Pulmonary embolism: past history of on Eliquis 5mg BID (11) HTN (hypertension): It does not appear she is on chronic medication for this. BPs were controlled w/o any dedicated medications while here. (12) Obesity hypoventilation syndrome: could be a cause of her daytime oxygen requirement with activity. could be a cause of her chronic fatigue. f/u with Dr Braydon Mcgowan for further work-up of this potential diagnosis. (13) Suspected sleep apnea: see above f/u with [facility] (14) History of sleeve gastrectomy: vitamin B12 level in 2020 was >1500 Total Time Total Time Spent Total Time Spent (In Minutes): 50 Discharge Plan Discharge Items Patient Disposition: Home - Self-Care Reason For Visit: ABDOMINAL PAIN Discharge Diagnosis: 1. 6mm left-sided ureteral kidney stone with stent placement by Dr Keegan Ray 2. Multiple other kidney stones near both kidneys, worse on left 3. Suspected urinary tract infection 4. Suspected sleep apnea/sleep-disordered breathing with need for night-time oxygen 2 Liters 5. Need for home oxygen - 2 Liters - with activity/walking 6. History of Sarcoid - stable chest CT 7. Bilateral neck pain - suspect muscle spasm/strain 8. Recent dental work Condition on Discharge: Good Activity: As commented below Activity Comment: Light activities only; no heavy exertional activities Exercise/Sports: Wait until after follow-up appointment Driving/Machine Use: NO DRIVING if taking narcotic pain killer meds OR baclofen muscle relaxer Non-emergency contact: Primary Care Provider, Dairy Farm Operator and Urologist Call non-emergency contact if: you have any medication questions, your symptoms worsen and you have a fever Follow-up/Referrals: Abena Preciado CRNP [Primary Care Provider] - 07/15/22 10:30 am rBaydon Mcgowan MD [Physician] - 07/29/22 1:30 pm (APPT WITH [facility]) Keegan Ray MD [Physician] - 07/09/22 11:00 am Diet: Regular Addtl Attending Provider Instructions: Mrs Cosme, Mario were hospitalized for a 6mm left-sided kidney stone in the left ureter. You were seen by [facility] & Dr Ray placed a stent in the left ureter. You did well from a urological standpoint. Antibiotics were given for suspected urinary infection as well. During the stay we noted that when you slept your oxygen levels would fall. An overnight oximetry study showed that you had numerous episodes of desaturation (low oxygen levels). This improved when we applied nasal cannula oxygen. In addition, we performed a walking oxygen test and you do need oxygen as well for activity/ambulation. You do not need oxygen when you are sitting/resting. The exact cause of the daytime oxygen requirement is not fully certain. It could be related to your sarcoid, past history of blood clots of the lungs, something called "restrictive" lung disease, or a combination of factors. Your echocardiogram was normal and did not show any heart issues that would cause you to need oxygen. The night-time desaturation is likely due to sleep apnea/sleep-disordered breathing. Your manager msw, Dr Mcgowan, has been made aware of the above findings as well as your test results. He will be seeing you in the near-future. You will likely need another sleep study & other tests. Further, you had significant neck pain over your sternocleidomastoid muscles in the front of your neck, especially on the left. CT scan of the face did not show any dental abscess, parotid gland disease, or swollen lymph nodes. Ultrasound of the left neck was normal. Doppler ultrasound of the left neck vessels and left arm vessels did not show a DVT blood clot. Your pain improved with steroids & muscle relaxers. Recommendations - 1. Oxygen - 2 liters via nasal cannula during sleep and with activity/ambula tion. Ok to remove any time you are sitting/resting. Do not allow anyone to smoke in your home due to the high risk of a house fire. 2. Antibiotics - ciprofloxacin 500mg twice daily x 3 days, first dose tonight. 3. For neck pain - * dexamethasone steroid - 4mg once daily x 3 days, first dose today. * baclofen 5mg every 12 hours as needed for muscle relaxation. Do not drink alcohol with this medication - it can make you very sleepy. Do not drive a car if you are taking this medication. 4. For urinary symptoms - * pyridium 100mg every 8 hours as needed for urinary pain/burning; this medication makes your urine look orange * oxybutinin 5mg every 12 hours as needed for bladder pain/spasm; this medication can cause dry eyes/dry mouth 5. For stent pain/back pain - hydrocodone-acetaminophen 5mg, 1 tablet every 4 hours as needed for pain. * this medication will cause constipation * this medication can make your sleepy/drousy * do not drink alcohol with this medication * do not take extra lmrl-shb-qsuitap tylenol while taking this medication * do not drive a care while taking this medication 6. Continue your tamsulosin 0.4mg daily as prescribed previously by urology. 7. Please stop any tramadol use. 8. Follow-up with your dentist for your dental issues / root canal. 9. Constipation - * when you arrive home today you may want to use an hbvl-wwm-ewsqpvg Dulcolax suppository for the constipation * for prevention/treatment of constipation you may need to use a combination of miralax and/or senokot (both are dlkp-gvw-sotsywm) --- especially if you are needing to use the narcotic pain killer medication Follow-up - see [facility] as scheduled on 07/08/22 See your family doctor for all other issues within [address] Mcgowan in the near-future Return to [facility] if - * you have fevers over 101 degrees * you have worsening abdominal pain or back pain * you see large amounts of blood in your urine * your neck pain worsens despite the above medications * you develop severe diarrhea * you have nausea or vomiting * any other concerns It was our pleasure to care for you! Please continue to feel better, Dr Monse Ignaciotl Jigsaw Operator Provider Instructions: Follow-up with [facility] as scheduled to discuss kidney stone treatment. If you have any questions or concerns, please call office at [phone]. While you have a ureteral stent in place: Some discomfort is normal. Certain movements may trigger pain or a feeling that you need to urinate. You may also feel mild soreness or pressure before or during urination. These symptoms should go away a few days after the stent is removed. Your urine may be slightly pink or red. This is due to bleeding caused by minor irritation from the stent. This may happen on and off while you have the stent, it is not harmful and is to be expected. Medication to help minimize discomfort or bladder spasms, or to prevent infection may be prescribed. Take this as directed. Drink plenty of fluids to help flush out your urinary tract. How long will you need a stent? The stent is often taken out after the blockage in the ureter is treated or the ureter has healed. This may take 1-2 weeks, or longer. When to call [facility] at [phone]: Your urine contains heavy blood clots You are constantly leaking urine Fever of 101F or higher, chills, nausea, or vomiting Your pain is not relieved with medication The end of the stent comes out of your urethra Pending Studies at Discharge: No Stand-Alone Forms: My [facility] tipple[facility]me [facility], Smoking Cessation Medications and DC Order Prescriptions: New (DME) Oxygen Home Liters Per Minute See Rx Instructions .ROUTE .MEDSUPPLY Qty: 1 0RF Rx Instructions: 2 L NC O2 with sleep/naps & walking/ambulation. baclofen 5 mg tablet 5 mg PO BID PRN (Reason: neck pain/neck spasm) Qty: 10 0RF hydrocodone-acetaminophen 5-325 mg tablet 1 tab PO Q4H PRN (Reason: pain) Qty: 20 0RF Continued bupropion HCl 150 mg tablet sustained-release 12 hr 150 mg PO BID Qty: 90 3RF Rx Instructions: in morning and at 3pm fluticasone propionate 50 mcg/actuation spray,suspension 2 spray intranasal BID PRN (Reason: allergy symptoms) Qty: 16 3RF apixaban 5 mg tablet 5 mg PO BID Qty: 60 11RF clonazepam [Klonopin] 1 mg tablet 0.5 mg PO HS tamsulosin [Flomax] 0.4 mg capsule 0.4 mg PO QPM Qty: 30 2RF Rx Instructions: Take one capsule at bedtime. omega 0-pze-rqv-fish oil [Fish Oil] 1,000 mg (120 mg-180 mg) capsule 1 cap PO QAM cholecalciferol (vitamin D3) [Vitamin D3] 1,000 unit (25 mcg) Tablet 1,000 unit PO DAILY multivitamin Tablet 1 tab PO QAM calcium carbonate [Calcium 600] 600 mg calcium (1,500 mg) Tablet 600 mg PO BID sertraline 100 mg tablet 150 mg PO QAM trazodone 100 mg tablet 200 mg PO HS mirtazapine 15 mg tablet 15 mg PO HS famotidine 20 mg tablet 20 mg PO BID Rx Instructions: at bedtime pantoprazole [Protonix] 40 mg tablet,delayed release (DR/EC) 40 mg PO HS budesonide-formoterol [Symbicort] 160-4.5 mcg/actuation HFA aerosol inhaler 2 puff inhalation BID PRN (Reason: Shortness Of Breath Or Wheezing) Patient Comments: USES ONLY NEEDED FOR SOB ascorbic acid (vitamin C) [Vitamin C] 1,000 mg Tablet 1 g PO DAILY zinc acetate 50 mg (zinc) Capsule 50 mg PO DAILY Linzess 72 mcg Capsule 72 mcg PO DAILYBB Discontinued tramadol 50 mg tablet 50 mg PO BID PRN (Reason: pain) Qty: 10 0RF ciprofloxacin HCl 500 mg tablet 500 mg PO Q12 Rx Instructions: ordered 06/29/22 for 7 days No Action oxybutynin chloride 5 mg tablet 5 mg PO BID PRN (Reason: bladder pain/spasm) Qty: 15 0RF phenazopyridine [Pyridium] 100 mg tablet 100 mg PO TID PRN (Reason: urinary pain/burning) Qty: 15 0RF Discharge Orders: Discharge Order (Routine); Ordered 07/05/22 Ordered By: Shawn Shea Admission Data Admit Date/Time: 07/01/22 22:04 Attending Provider: Shawn Shea Admit Provider: Santhosh Browne Primary Care Provider: Abena Preciado Other Providers: Talha Arias ; Keegan Ray ; Garret Pereyra Other Interventions: Discharge Summary Assessment (RN) Last Done: 07/05/22 14:56 Coding Level of Care Code 45202 INP/OBS DISCH >30 MIN Diagnoses Left ureteral calculus N20.1 Hydroureteronephrosis N13.30 Urinary tract infection N39.0 Hematuria R31.9 Neck pain M54.2 Nocturnal hypoxemia G47.34 Sarcoidosis D86.9 Oxygen dependent Z99.81 Deep vein thrombosis I82.409 Pulmonary embolism I26.99 Acute cor pulmonale presence: unspecified Chronicity: acute Pulmonary embolism type: unspecified HTN (hypertension) I10 Obesity hypoventilation syndrome E66.2 Suspected sleep apnea R29.818 History of sleeve gastrectomy Z90.3
--- NOTE | 2022-07-10 11:09 | Coding Query ---
CODING QUERY To promote full compliance with coding requirements relating to patient care, provider participation is requested in all cases of audio visual arts director uncertainty. Please assist us with the question(s) below: Coding Question(s): There is documentation, starting on the 07/04 Progress Note of, " Oxygen dependent: Plan: needs 2 L NC o2 w/ ambulation only 2nd to chronic sarcoid? OHS? restrictive lung disease? other? will need f/u with Dr Mcgowan PFTs etc check echo prior to d/c -- check PA pressures", and the Discharge Summary, currently in Draft status, documents this as well and down below, under Discharge Plan on the Discharge Summary, under Discharge Diagnosis is, "4. Suspected sleep apnea/sleep-disordered breathing with need for night-time oxygen 2 Liters 5. Need for home oxygen - 2 Liters - with activity/walking", and under Addtl Attending Provider Instructions, "During the stay we noted that when you slept your oxygen levels would fall. An overnight oximetry study showed that you had numerous episodes of desaturation (low oxygen levels). This improved when we applied nasal cannula oxygen. In addition, we performed a walking oxygen test and you do need oxygen as well for activity/ambulation. You do not need oxygen when you are sitting/resting. The exact cause of the daytime oxygen requirement is not fully certain. It could be related to your sarcoid, past history of blood clots of the lungs, something called "restrictive" lung disease, or a combination of factors. Your echocardiogram was normal and did not show any heart issues that would cause you to need oxygen. The night-time desaturation is likely due to sleep apnea/sleep-disordered breathing. Your photofinishing laboratory worker, Dr Mcgowan, has been made aware of the above findings as well as your test results. He will be seeing you in the near-future. You will likely need another sleep study & other tests.". Please specify below, in your clinical opinion, regarding the OHS?: ( x ) Questionable OHS, Obesity Hypoventilation Syndrome, was evaluated/monitored/treated during this admission and is a significant diagnosis ( ) Questionable OHS, Obesity Hypoventilation Syndrome, is either ruled-out or not a significant diagnosis during this admission ( ) Other: Please Specify Physician's Response(s): Thank you Marleni Ley Principal Diagnosis: "that condition established after study, to be chiefly responsible for occasioning the admission of the patient to the hospital for care." Co-Existing Principal Diagnosis: "when two or more diagnoses equally meet the criteria for principal diagnosis as determined by the circumstances of admission, diagnostic work up, and/or therapy provided, and the Alphabetic Index, Tabular List, or another coding guideline does not provide sequencing direction, any one of the diagnoses may be sequenced first." "When the physician has documented what appears to be a current diagnosis in the body of the record, but has not included the diagnosis in the final diagnostic statement, the physician should be asked whether the diagnosis should be added." (Source [facility] 2 QTR90. p3-4) GUNNER
== END 2022-07-05 15:39 | disposition home or self-care (01) | DRG 660 ==
LOC: ED 17:50 → 3N 22:04 → SUATTDRO 22:04 → 3N 23:06